=== PATIENT | male | born 1985 | race Caucasian/White ===

== ENCOUNTER 2016-11-10 03:28 | Emergency (ER) | payer SELFPAY ==
--- NOTE | 2016-11-10 03:46 | ERPHSYRPT ---
- History of Present Illness Time Seen by Provider: 11/10/16 03:44 Historian: patient Exam Limitations: no limitations Physician History: pt is 31 year old male with 3 day hx RLQ pain and vomiting and now RLQ tenderness no prior abd surgery hx gerd discussed risk and benefit of CT and pt ultimately decided to have it Timing/Duration: day(s) Activities at Onset: none Quality: cramping, sharpness, stabbing Abdominal Pain Onset Location: RLQ, periumbilical Pain Radiation: RLQ Severity of Pain-Max: moderate Severity of Pain-Current: moderate Modifying Factors: Improves With: nothing Associated Symptoms: loss of appetite, nausea, vomiting Previous symptoms: no prior history Allergies/Adverse Reactions: ketorolac tromethamine [From Toradol] Allergy (Verified 02/25/16 06:11) Itching shrimp Allergy (Verified 02/25/16 06:11) Home Medications: Escitalopram Oxalate [Lexapro] 1 tab PO DAILY 02/25/16 [History] Esomeprazole Magnesium [Nexium] 40 mg PO DAILY 02/25/16 [History] Lorazepam 0.5 mg [Ativan 0.5 MG] 1 mg PO TID PRN 02/25/16 [History] Temazepam [Restoril] 30 mg PO DAILY PRN 02/25/16 [History] Testosterone [Androgel] 150 gm IM WEEKLY 02/25/16 [History] Cephalexin Mh 500 mg [Keflex 500 mg] 500 mg PO TID 11/10/16 [History] Hx Tetanus, Diphtheria Vaccination/Date Given: Yes Hx Influenza Vaccination/Date Given: No Hx Pneumococcal Vaccination/Date Given: No - Review of Systems Constitutional: No Fever, No Chills Eyes: No Symptoms Ears, Nose, & Throat: No Symptoms Respiratory: No Cough, No Dyspnea Cardiac: No Chest Pain, No Edema, No Syncope Abdominal/Gastrointestinal: Abdominal Pain, Nausea, Vomiting, No Diarrhea Genitourinary Symptoms: No Dysuria Musculoskeletal: No Back Pain, No Neck Pain Skin: No Rash Neurological: No Dizziness, No Focal Weakness, No Sensory Changes Psychological: No Symptoms Endocrine: No Symptoms All Other Systems: Reviewed and Negative - Past Medical History Pertinent Past Medical History: Yes History: Other Other Medical History: Kallmann's Disease - frequent kidney stones - Past Surgical History Past Surgical History: Yes Other Surgical History: nephrolithiasis removal - egd - colonoscopy - Social History Smoking Status: Never smoker Exposure to second hand smoke: No Drug Use: none Patient Lives Alone: No - Nursing Vital Signs Nursing Vital Signs: Initial Vital Signs Temperature 98.5 F Temperature Source Oral Pulse Rate 87 Respiratory Rate 18 Blood Pressure [] 144/94 Pain Intensity 8 - Physical Exam General Appearance: no apparent distress, alert Eye Exam: PERRL/EOMI, eyes nml inspection Ears, Nose, Throat Exam: normal ENT inspection, pharynx normal, moist mucous membranes Neck Exam: normal inspection, non-tender, supple, full range of motion Respiratory Exam: normal breath sounds, lungs clear, No respiratory distress Cardiovascular Exam: regular rate/rhythm, normal heart sounds Gastrointestinal/Abdomen Exam: soft, tenderness, guarding, No mass, No pulsatile mass Rectal Exam: deferred Back Exam: normal inspection, normal range of motion, No CVA tenderness, No vertebral tenderness Extremity Exam: normal inspection, normal range of motion, pelvis stable Neurologic Exam: alert, oriented x 3, cooperative, normal mood/affect, nml cerebellar function, sensation nml, No motor deficits Skin Exam: normal color, warm, dry - Course Nursing assessment & vital signs reviewed: Yes EKG Interpreted by Me: Sinus Rhythm, NORMAL AXIS, Non-specific ST Changes - CT Exams Abdomen/Pelvis CT Interpretation: Tele-radiologist Report, Normal Appendix, No appendicitis Ordered Tests: Active Orders 24 hr Category Date Time Status Clean Catch Urine Specimen STAT Care 11/10/16 03:47 Active EKG-ER Only STAT Care 11/10/16 03:47 Active IV Insertion STAT Care 11/10/16 03:47 Active NPO (ED) STAT Care 11/10/16 03:47 Active ABDOMEN AND PELVIS W/0 CONTRAS [CT] Stat Exams 11/10/16 03:47 Taken AMYLASE Stat Lab 11/10/16 04:10 Completed CBC W DIFF Stat Lab 11/10/16 04:10 Completed CMP Stat Lab 11/10/16 04:10 Completed CULTURE,URINE Stat Lab 11/10/16 04:49 Received LIPASE Stat Lab 11/10/16 04:10 Completed Lactic Acid Stat Lab 11/10/16 03:47 Completed TROPONIN Stat Lab 11/10/16 04:10 Completed UA W/ MICROSCOPIC Stat Lab 11/10/16 04:49 Completed Medication Summary Generic Name Dose Route Start Last Admin Trade Name Freq PRN Reason Stop Dose Admin Sodium Chloride 1,000 mls @ 999 mls/hr 11/10/16 05:32 Sodium Chloride 0.9% 1000 Ml IV 11/10/16 06:32 .Q1H1M STA Discontinued Medications Generic Name Dose Route Start Last Admin Trade Name Miguel A PRN Reason Stop Dose Admin Diphenhydramine HCl 25 mg 11/10/16 03:47 11/10/16 04:12 Benadryl 50 Mg/Ml IV 11/10/16 03:48 25 mg STAT ONE Administration Diphenhydramine HCl Confirm 11/10/16 04:02 Benadryl 50 Mg/Ml Administered 11/10/16 04:03 Dose 50 mg .ROUTE .STK-MED ONE Famotidine 20 mg 11/10/16 03:47 11/10/16 04:10 Pepcid 20 Mg Vial IV 11/10/16 03:48 20 mg STAT ONE Administration Famotidine Confirm 11/10/16 04:02 Pepcid 20 Mg Vial Administered 11/10/16 04:03 Dose 20 mg IV .STK-MED ONE Hydromorphone HCl 1 mg 11/10/16 05:01 11/10/16 05:19 Hydromorphone 1 Mg/Ml Ampule IV 11/10/16 05:02 1 mg STAT ONE Administration Hydromorphone HCl Confirm 11/10/16 05:17 Hydromorphone 1 Mg/Ml Ampule Administered 11/10/16 05:18 Dose 1 mg .ROUTE .STK-MED ONE Sodium Chloride 1,000 mls @ 999 mls/hr 11/10/16 03:47 11/10/16 04:08 Sodium Chloride 0.9% 1000 Ml IV 11/10/16 04:47 999 mls/hr .Q1H1M STA Administration Sodium Chloride Confirm 11/10/16 04:02 Sodium Chloride 0.9% 1000 Ml Administered 11/10/16 04:03 Dose 1,000 mls @ ud .ROUTE .STK-MED ONE Sodium Chloride Confirm 11/10/16 05:25 Sodium Chloride 0.9% 1000 Ml Administered 11/10/16 05:26 Dose 1,000 mls @ ud .ROUTE .STK-MED ONE Morphine Sulfate 4 mg 11/10/16 03:47 11/10/16 04:13 Morphine Sulfate 4 Mg Inj IV 11/10/16 03:48 4 mg STAT ONE Administration Morphine Sulfate Confirm 11/10/16 04:02 Morphine Sulfate 4 Mg Inj Administered 11/10/16 04:03 Dose 4 mg .ROUTE .STK-MED ONE Ondansetron HCl 4 mg 11/10/16 03:47 11/10/16 04:08 Zofran 4 Mg/2 Ml Vial IV 11/10/16 03:48 4 mg STAT ONE Administration Ondansetron HCl Confirm 11/10/16 04:02 Zofran 4 Mg/2 Ml Vial Administered 11/10/16 04:03 Dose 4 mg .ROUTE .STK-MED ONE Lab/Rad Data: Laboratory Result Diagrams 11/10/16 04:10 11/10/16 04:10 Laboratory Results 11/10/16 11/10/16 11/10/16 Range/Units 04:49 04:10 04:10 WBC 8.4 (4.0-10.5) K/mm3 RBC 5.82 H (4.1-5.6) M/mm3 Hgb 16.1 (12.5-18.0) gm/dl Hct 48.0 (42-50) % MCV 82.5 (78-100) fl MCH 27.6 (26-32) pg MCHC 33.5 (32-36) g/dl RDW 13.6 (11.5-14.0) % Plt Count 313 (150-450) K/mm3 MPV 9.6 H (6-9.5) fl Gran % 71.0 H (36.0-66.0) % Lymphocytes % 22.7 L (24.0-44.0) % Monocytes % 5.6 (0.0-12.0) % Eosinophils % 0.5 (0.00-5.0) % Basophils % 0.2 (0.0-0.4) % Basophils # 0.02 (0-0.4) Sodium 141 (136-145) mEq/L Potassium 3.7 (3.5-5.1) mEq/L Chloride 104 (98-107) mEq/L Carbon Dioxide 27.6 (21-32) mEq/L Anion Gap 13.1 (5-15) MEQ/L BUN 14 (9-20) mg/dL Creatinine 0.95 (0.55-1.30) mg/dl Estimated GFR > 60 ML/MIN Glucose 92 (70-110) MG/DL Lactic Acid (0.4-2.0) Calcium 9.4 (8.5-10.1) mg/dL Total Bilirubin 0.50 (0.2-1.0) mg/dL AST 35 (15-37) U/L ALT 76 (12-78) U/L Alkaline Phosphatase 68 (46-116) U/L Troponin I < 0.017 (0.000-0.056) ng/ml Serum Total Protein 7.6 (6.4-8.2) gm/dL Albumin 4.0 (3.4-5.0) g/dL Amylase 70 (25-115) U/L Lipase 153 (73-393) U/L Ur Collection Type CLEAN CATCH Urine Color YELLOW (YELLOW) Urine Appearance SLIGHTLY CLOUDY (CLEAR) Urine pH 5.0 (5-6) Ur Specific Roy 1.025 (1.005-1.025) Urine Protein TRACE (Negative) Urine Ketones NEGATIVE (NEGATIVE) Urine Blood 250 (0-5) Romario/ul Urine Nitrite NEGATIVE (NEGATIVE) Urine Bilirubin NEGATIVE (NEGATIVE) Urine Urobilinogen NORMAL (0-1) mg/dL Ur Leukocyte Esterase NEGATIVE (NEGATIVE) Urine Microscopic RBC 50-100 (0-2) /HPF Urine Microscopic WBC 0-2 (0-5) /HPF Ur Epithelial Cells FEW (FEW) /HPF Urine Bacteria MODERATE (NEGATIVE) /HPF Urine Glucose NEGATIVE (NEGATIVE) mg/dL Specimen Received 11/10/16 0450 11/10/16 Range/Units 03:47 WBC (4.0-10.5) K/mm3 RBC (4.1-5.6) M/mm3 Hgb (12.5-18.0) gm/dl Hct (42-50) % MCV (78-100) fl MCH (26-32) pg MCHC (32-36) g/dl RDW (11.5-14.0) % Plt Count (150-450) K/mm3 MPV (6-9.5) fl Gran % (36.0-66.0) % Lymphocytes % (24.0-44.0) % Monocytes % (0.0-12.0) % Eosinophils % (0.00-5.0) % Basophils % (0.0-0.4) % Basophils # (0-0.4) Sodium (136-145) mEq/L Potassium (3.5-5.1) mEq/L Chloride (98-107) mEq/L Carbon Dioxide (21-32) mEq/L Anion Gap (5-15) MEQ/L BUN (9-20) mg/dL Creatinine (0.55-1.30) mg/dl Estimated GFR ML/MIN Glucose (70-110) MG/DL Lactic Acid 1.3 (0.4-2.0) Calcium (8.5-10.1) mg/dL Total Bilirubin (0.2-1.0) mg/dL AST (15-37) U/L ALT (12-78) U/L Alkaline Phosphatase (46-116) U/L Troponin I (0.000-0.056) ng/ml Serum Total Protein (6.4-8.2) gm/dL Albumin (3.4-5.0) g/dL Amylase (25-115) U/L Lipase (73-393) U/L Ur Collection Type Urine Color (YELLOW) Urine Appearance (CLEAR) Urine pH (5-6) Ur Specific Roy (1.005-1.025) Urine Protein (Negative) Urine Ketones (NEGATIVE) Urine Blood (0-5) Romario/ul Urine Nitrite (NEGATIVE) Urine Bilirubin (NEGATIVE) Urine Urobilinogen (0-1) mg/dL Ur Leukocyte Esterase (NEGATIVE) Urine Microscopic RBC (0-2) /HPF Urine Microscopic WBC (0-5) /HPF Ur Epithelial Cells (FEW) /HPF Urine Bacteria (NEGATIVE) /HPF Urine Glucose (NEGATIVE) mg/dL Specimen Received - Progress Progress: improved, re-examined Progress Note: 11/10/16 05:39 discussed results with pt and that undetected pathology could still be evolving and need for f/u and he is comfortable now with DC to f/u without further eval in hosp at this time; Counseled pt/family regarding: lab results, diagnosis, need for follow-up, rad results - Departure Time of Disposition: 05:42 Departure Disposition: Home Clinical Impression: Renal calculus, Recurrent nephrolithiasis, Abdominal pain Condition: Good Critical Care Time: No Instructions: Vomiting -- Adult, Abdominal Pain-Adult Additional Instructions: we have not found a precise cause for your pain, but there are still kidney stones on the other side; it is important to f/u with your dr and to return meantime if pain continues or fever, or other concerns; there may still be problems developing. Prescriptions: Promethazine HCl 25 mg Supp [Phenergan 25 mg Supp] 25 mg RC Q8HPRN PRN # 10 supp.rect PRN Reason: Nausea
[2016-11-10] MEDS ORDERED: Pepcid 20 MG VIAL IV ONE ×2 (03:47→04:02)
[2016-11-10] MEDS ORDERED: Sodium Chloride 0.9% 1000 ML 1,000 ML IV STA ×2 (03:47→05:32)
[2016-11-10] MEDS ORDERED: BENADRYL 50 MG/ML IV ONE ×2 (03:47→05:41)
[2016-11-10] MEDS ORDERED: MORPHINE SULFATE 4 MG INJ IV ONE (03:47)
[2016-11-10] MEDS ORDERED: Zofran 4 MG/2 ML VIAL IV ONE (03:47)
[2016-11-10 03:52] VITALS: BP 144/94; PULSE 87; O2SAT 97
[2016-11-10] MEDS ORDERED: Sodium Chloride 0.9% 1000 ML 1,000 ML ONE ×2 (04:02→05:25)
[2016-11-10] MEDS ORDERED: Zofran 4 MG/2 ML VIAL ONE (04:02)
[2016-11-10] MEDS ORDERED: MORPHINE SULFATE 4 MG INJ ONE (04:02)
[2016-11-10] MEDS ORDERED: BENADRYL 50 MG/ML ONE ×2 (04:02→05:47)
[2016-11-10 04:19] LABS: BASOPHIL % 0.2 % (0.0-0.4); Eosinophil % 0.5 % (0.00-5.0); Lymphocytes % 22.7 % (24.0-44.0); Mean Cell Volume 82.5 fl (78-100); Mean Platelet Volume 9.6 fl (6-9.5); Monocytes % 5.6 % (0.0-12.0); Platelet Count 313 K/mm3 (150-450); Red Blood Count 5.82 M/mm3 (4.1-5.6); Red Cell Distribution Width 13.6 % (11.5-14.0); White Blood Count 8.4 K/mm3 (4.0-10.5)
[2016-11-10 04:22] LABS: Mean Corpuscular Hemoglobin 27.6 pg (26-32)
[2016-11-10 04:51] LABS: ALKALINE PHOSPHATASE 68 U/L (46-116); ANION GAP 13.1 MEQ/L (5-15); BLOOD UREA NITROGEN 14 mg/dL (9-20); CHLORIDE 104 mEq/L (98-107); Carbon Dioxide 27.6 mEq/L (21-32); Glucose 92 MG/DL (70-110); LIPASE 153 U/L (73-393); Potassium 3.7 mEq/L (3.5-5.1); SGOT/AST 35 U/L (15-37); SGPT/ALT 76 U/L (12-78); SODIUM 141 mEq/L (136-145); Total Protein 7.6 gm/dL (6.4-8.2)
[2016-11-10 04:53] LABS: TROPONIN < 0.017 ng/ml (0.000-0.056)
[2016-11-10] MEDS ORDERED: Hydromorphone 1 mg/ml Ampule IV ONE ×2 (05:01→05:50)
[2016-11-10 05:08] LABS: Collection Type CLEAN CATCH
[2016-11-10 05:09] LABS: ADD URINE CULTURE? YES (NO); Bacteria MODERATE /HPF (NEGATIVE); Bilirubin NEGATIVE (NEGATIVE); Blood 250 Ery/ul (0-5); COMPLETE URINE MICROSCOPIC? YES; Epithelial Cells FEW /HPF (FEW); Glucose NEGATIVE (NEGATIVE); Leukocyte Esterase NEGATIVE (NEGATIVE); WBC 0-2 /HPF (0-5)
[2016-11-10] MEDS ORDERED: Hydromorphone 1 mg/ml Ampule ONE ×2 (05:17→06:11)
--- NOTE | 2016-11-10 09:53 | XRAY ---
Indication: Right lower quadrant pain. Nausea, vomiting, diarrhea. Multiple contiguous axial images obtained through the abdomen and pelvis without contrast as ordered. Comparison: None. Lung bases demonstrates mild bibasilar dependent atelectasis. No infiltrate, consolidation, or effusion. Heart is not enlarged. Noncontrasted stomach and bowel loops appear nonobstructed. There is mild diffuse scattered colonic fecal debris throughout. Also mild scattered diverticulosis without diverticulitis. Small appendicolith without appendicitis. No free fluid/air. There are 2 nonobstructing punctate left renal calculi. 2 cm right mid renal cortical cyst. Spleen is enlarged measuring 14.5 cm in greatest axial dimension. Remaining liver, gallbladder, pancreas, spleen, adrenal glands, kidneys, ureters, bladder, and aorta appear unremarkable for noncontrast exam. Osseous structures intact. Impression: 1. Nonobstructing left renal micro-calculi and a right renal cyst. 2. Splenomegaly. 3. Mild fecal stasis without obstruction. 4. Appendicolith without appendicitis. 5. No acute intra-abdominal/pelvic abnormalities on this noncontrast exam. Comment: Preliminary interpretation was made by C. No critical discrepancy. CTDI 28.10
== END 2016-11-10 06:40 | disposition home or self-care (01) ==
LOC: ED 03:28
DX: N20.0 Calculus of kidney (principal); Z87.442 Personal history of urinary calculi; R10.9 Unspecified abdominal pain; R10.31 Right lower quadrant pain; R10.11 Right upper quadrant pain; R11.2 Nausea with vomiting, unspecified; Z79.899 Other long term (current) drug therapy
CPT/HCPCS: 36000; 36415; 74176; 80053; 81000; 82150; 83605; 83690; 84484; 85025; 87086; 93005; 96374; 96375; 96376; 99284; J1170; J1200; J2270; J2405

== ENCOUNTER 2016-12-03 01:29 | Emergency (ER) | payer SELFPAY ==
[2016-12-03] MEDS ORDERED: Sodium Chloride 0.9% 1000 ML 1,000 ML IV STA (01:48)
[2016-12-03] MEDS ORDERED: BENADRYL 50 MG/ML IV ONE ×2 (01:48→04:12)
[2016-12-03] MEDS ORDERED: MORPHINE SULFATE 4 MG INJ IV ONE ×2 (01:48→02:58)
--- NOTE | 2016-12-03 01:53 | ERPHSYRPT ---
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 Pt sts also feels like he is short of breath and anxious and is concerned because his friend who is an SEARCH MANAGER at a [employer] told him that he is having a reaction to his restoril. Triage Nursing Assessment: Pt alert, oriented, answers all questions appropriately. Dry heaving during triage. Pt with shaking arms and hands. Resps non-labored. Speaking in full sentences. Ambulatory to tx room, steady gait noted. Physician History: This is a 31-year-old white male with history of Kallman's syndrome, frequent urinary kidney stones Patient arrives with complaint of left flank pain vomiting symptoms for one hour he states he feels short of breath and anxious Past medical history includes Kallman's disease, frequent kidney stones. Past surgical history includes nephrolithiasis EGD colonoscopy Patient is on Restoril chronically he states he has not gone long periods without taking this Social history patient denies tobacco alcohol or illicit drug use Timing/Duration: today Activities at Onset: none Quality: sharpness Abdominal Pain Onset Location: flank Pain Radiation: no radiation (left flank) Severity of Pain-Max: moderate Severity of Pain-Current: moderate Modifying Factors: Improves With: nothing Associated Symptoms: back (eft flank pain), nausea, vomiting, other (patient tremulous feels anxious), No chest pain, No diaphoresis, No diarrhea, No fever/ chills, No fatigue, No headache, No heartburn, No loss of appetite, No neck pain , No rash, No shortness of breath, No syncope, No testicular pain, No weakness Previous symptoms: other (patient has had kidney stones in the past) Allergies/Adverse Reactions: ketorolac tromethamine [From Toradol] Allergy (Verified 12/03/16 01:43) Itching shrimp Allergy (Verified 12/03/16 01:43) Home Medications: Escitalopram Oxalate [Lexapro] 1 tab PO DAILY 02/25/16 [History] Esomeprazole Magnesium [Nexium] 40 mg PO DAILY 02/25/16 [History] Lorazepam 0.5 mg [Ativan 0.5 MG] 1 mg PO TID PRN 02/25/16 [History] Temazepam [Restoril] 30 mg PO DAILY PRN 02/25/16 [History] Testosterone [Androgel] 150 gm IM WEEKLY 02/25/16 [History] Hx Tetanus, Diphtheria Vaccination/Date Given: Yes Hx Influenza Vaccination/Date Given: No Hx Pneumococcal Vaccination/Date Given: No Immunizations Up to Date: Yes - Review of Systems Constitutional: No Fever, No Chills Eyes: No Symptoms Ears, Nose, & Throat: No Symptoms Respiratory: Dyspnea (patient feels anxious) Cardiac: No Chest Pain, No Edema, No Syncope Abdominal/Gastrointestinal: Nausea, Vomiting, No Abdominal Pain, No Diarrhea, No Constipation, No Hematemesis, No Hematochezia, No Melena, No Dysphagia, No Appetite Changes Genitourinary Symptoms: Flank Pain (left flank pain) Musculoskeletal: No Back Pain, No Neck Pain Skin: No Rash Neurological: No Dizziness, No Focal Weakness, No Sensory Changes Psychological: No Symptoms Endocrine: No Symptoms All Other Systems: Reviewed and Negative - Past Medical History Pertinent Past Medical History: Yes GI Medical History: GERD History: Other Psycho-Social History: Anxiety Other Medical History: Kallmann's Disease - frequent kidney stones - Past Surgical History Past Surgical History: Yes Other Surgical History: nephrolithiasis removal - egd - colonoscopy - Social History Smoking Status: Never smoker Exposure to second hand smoke: No Drug Use: none Patient Lives Alone: No - Nursing Vital Signs Nursing Vital Signs: Initial Vital Signs Temperature 97.9 F Temperature Source Oral Pulse Rate 87 Respiratory Rate 16 Blood Pressure [Right Arm] 131/101 Pain Intensity 6 - Physical Exam General Appearance: other (well-developed well-nourished white male alert oriented 3 tremor of both hands) Eye Exam: PERRL/EOMI, eyes nml inspection Ears, Nose, Throat Exam: normal ENT inspection, pharynx normal, moist mucous membranes Neck Exam: normal inspection, non-tender, supple, full range of motion Respiratory Exam: normal breath sounds, lungs clear, No respiratory distress Cardiovascular Exam: regular rate/rhythm, normal heart sounds Gastrointestinal/Abdomen Exam: soft, No tenderness, No mass Back Exam: CVA tenderness (left flank tenderness) Extremity Exam: normal inspection, normal range of motion, pelvis stable, other (patient with tremor of both hands almost appeared to be coordinated so that tremor from side to side is symmetrical with both hands) Neurologic Exam: alert, oriented x 3, 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 tested Skin Exam: normal color, warm, dry SpO2 Interpretation: normal (96%) SpO2: 96 Oxygen Delivery: Room Air Ordered Tests: Active Orders 24 hr Category Date Time Status IV Insertion STAT Care 12/03/16 01:48 Active KUB Stat Exams 12/03/16 03:34 Taken AMYLASE Stat Lab 12/03/16 02:16 Completed CBC W DIFF Stat Lab 12/03/16 02:16 Completed CMP Stat Lab 12/03/16 02:16 Completed CULTURE,URINE Stat Lab 12/03/16 03:03 Received LIPASE Stat Lab 12/03/16 02:16 Completed UA W/ MICROSCOPIC Stat Lab 12/03/16 03:03 Completed Medication Summary Discontinued Medications Generic Name Dose Route Start Last Admin Trade Name Freq PRN Reason Stop Dose Admin Diphenhydramine HCl 25 mg 12/03/16 01:48 12/03/16 02:20 Benadryl 50 Mg/Ml IV 12/03/16 01:49 25 mg STAT ONE Administration Diphenhydramine HCl Confirm 12/03/16 02:09 Benadryl 50 Mg/Ml Administered 12/03/16 02:10 Dose 50 mg .ROUTE .STK-MED ONE Diphenhydramine HCl 25 mg 12/03/16 04:12 12/03/16 04:19 Benadryl 50 Mg/Ml IV 12/03/16 04:13 25 mg STAT ONE Administration Diphenhydramine HCl Confirm 12/03/16 04:16 Benadryl 50 Mg/Ml Administered 12/03/16 04:17 Dose 50 mg .ROUTE .STK-MED ONE Hydromorphone HCl 1 mg 12/03/16 03:32 12/03/16 04:10 Hydromorphone 1 Mg/Ml Ampule IV 12/03/16 03:33 1 mg STAT ONE Administration Hydromorphone HCl Confirm 12/03/16 04:06 Hydromorphone 1 Mg/Ml Ampule Administered 12/03/16 04:07 Dose 1 mg .ROUTE .STK-MED ONE Sodium Chloride 1,000 mls @ 999 mls/hr 12/03/16 01:48 12/03/16 02:20 Sodium Chloride 0.9% 1000 Ml IV 12/03/16 02:48 999 mls/hr .Q1H1M STA Administration Sodium Chloride Confirm 12/03/16 02:11 Sodium Chloride 0.9% 1000 Ml Administered 12/03/16 02:12 Dose 1,000 mls @ ud .ROUTE .STK-MED ONE Morphine Sulfate 4 mg 12/03/16 01:48 12/03/16 02:20 Morphine Sulfate 4 Mg Inj IV 12/03/16 01:49 4 mg STAT ONE Administration Morphine Sulfate Confirm 12/03/16 02:11 Morphine Sulfate 4 Mg Inj Administered 12/03/16 02:12 Dose 4 mg .ROUTE .STK-MED ONE Morphine Sulfate 4 mg 12/03/16 02:58 12/03/16 03:13 Morphine Sulfate 4 Mg Inj IV 12/03/16 02:59 4 mg STAT ONE Administration Morphine Sulfate Confirm 12/03/16 03:11 Morphine Sulfate 4 Mg Inj Administered 12/03/16 03:12 Dose 4 mg .ROUTE .STK-MED ONE Lab/Rad Data: Laboratory Result Diagrams 12/03/16 02:16 12/03/16 02:16 Laboratory Results 12/03/16 12/03/16 12/03/16 Range/Units 03:03 02:16 02:16 WBC 9.6 (4.0-10.5) K/mm3 RBC 5.45 (4.1-5.6) M/mm3 Hgb 15.1 (12.5-18.0) gm/dl Hct 45.1 (42-50) % MCV 82.8 (78-100) fl MCH 27.7 (26-32) pg MCHC 33.5 (32-36) g/dl RDW 14.6 H (11.5-14.0) % Plt Count 225 (150-450) K/mm3 MPV 9.5 (6-9.5) fl Gran % 68.8 H (36.0-66.0) % Lymphocytes % 21.6 L (24.0-44.0) % Monocytes % 8.4 (0.0-12.0) % Eosinophils % 1.0 (0.00-5.0) % Basophils % 0.2 (0.0-0.4) % Basophils # 0.02 (0-0.4) Sodium 142 (136-145) mEq/L Potassium 3.5 (3.5-5.1) mEq/L Chloride 105 (98-107) mEq/L Carbon Dioxide 29.1 (21-32) mEq/L Anion Gap 11.7 (5-15) MEQ/L BUN 8 L (9-20) mg/dL Creatinine 0.98 (0.55-1.30) mg/dl Estimated GFR > 60 ML/MIN Glucose 100 (70-110) MG/DL Calcium 9.1 (8.5-10.1) mg/dL Total Bilirubin 0.20 (0.2-1.0) mg/dL AST 26 (15-37) U/L ALT 63 (12-78) U/L Alkaline Phosphatase 71 (46-116) U/L Serum Total Protein 7.0 (6.4-8.2) gm/dL Albumin 3.9 (3.4-5.0) g/dL Amylase 86 (25-115) U/L Lipase 227 (73-393) U/L Ur Collection Type CLEAN CATCH Urine Color YELLOW (YELLOW) Urine Appearance CLOUDY (CLEAR) Urine pH 8.0 (5-6) Ur Specific [place] 1.005 (1.005-1.025) Urine Protein 30 (Negative) Urine Ketones NEGATIVE (NEGATIVE) Urine Blood 250 (0-5) Romario/ul Urine Nitrite NEGATIVE (NEGATIVE) Urine Bilirubin NEGATIVE (NEGATIVE) Urine Urobilinogen NORMAL (0-1) mg/dL Ur Leukocyte Esterase TRACE (NEGATIVE) Urine Microscopic RBC >100 (0-2) /HPF Urine Microscopic WBC 0-2 (0-5) /HPF Amorphous Crystals MODERATE (NEGATIVE) /HPF Urine Bacteria FEW (NEGATIVE) /HPF Urine Glucose NEGATIVE (NEGATIVE) mg/dL Specimen Received [id number] - Progress Progress: improved Progress Note: 12/03/16 04:00 This is a 31-year-old white male with history of Kallman's syndrome, frequent kidney stones he arrives with complaint of left flank pain associated with nausea and vomiting which had been going on for approximately one hour prior to arrival. Patient also stated that he was tremulous she has been told by a friend that he might be having an allergic reaction to Restoril which he has been on chronically. On arrival patient did have some tremor he had some anxiety he did have some left flank pain. Patient had a greater than 100 red cells per high-power field there were 0-2 white cells chemistry was essentially normal and the CBC was essentially normal Patient was given IV fluids was given morphine 4 mg IV x 2 , he stated that morphine does not work for him and suggested Dilaudid. Patient was given 1 mg of Dilaudid as well. Patient had been given Benadryl 25 mg IV as well. Patient appears to be markedly improved much more comfortable patient requested that if any x-rays were done the patient did not have the CT he states he's had multiple of these and he did not want them he did request a KUB. KUB was obtained and my read I do not see any obvious calcifications there is a moderate amount of stool in the bowel. Patient is markedly improved Will release. Will place patient on [place] for pain patient is to strain his urine he is to follow-up with his family doctor he is to call tomorrow. . 12/03/16 04:46 Patient's blood pressure was noted to be 181/121 on arrival This is felt to be from the patient's distress is decreased to 140/104 at time of discharge after receiving the Dilaudid. Patient has been requested to follow-up with his family doctor to recheck this. - Departure Time of Disposition: 04:08 Departure Disposition: Home Clinical Impression: Left flank pain, History of nephrolithiasis Hematuria Qualifiers: Hematuria type: unspecified type Qualified Code(s): R31.9 - Hematuria, unspecified Condition: Fair Critical Care Time: No Referrals: RASHI ALVARADO JR [Primary Care Provider] - Instructions: Hematuria Additional Instructions: Return home. Plenty of fluids. [place] 5/325 one to 2 orally every 4-6 hours as needed for pain #20. Strain all urine. Follow-up with your family doctor call tomorrow for an appointment. Return for acute distress or for severe symptoms. Prescriptions: Hydrocodone/Acetaminophen [[place] 5-325 Tablet] 1 - 2 tab PO Q4-6HPRN PRN #20 tablet PRN Reason: Pain
[2016-12-03] MEDS ORDERED: BENADRYL 50 MG/ML ONE ×2 (02:09→04:16)
[2016-12-03] MEDS ORDERED: MORPHINE SULFATE 4 MG INJ ONE ×2 (02:11→03:11)
[2016-12-03] MEDS ORDERED: Sodium Chloride 0.9% 1000 ML 1,000 ML ONE (02:11)
[2016-12-03 02:21] LABS: BASOPHIL % 0.2 % (0.0-0.4); Granulocytes % 68.8 % (36.0-66.0); Lymphocytes % 21.6 % (24.0-44.0); Mean Cell Volume 82.8 fl (78-100); Mean Corpuscular Hemoglobin 27.7 pg (26-32); Mean Platelet Volume 9.5 fl (6-9.5); Monocytes % 8.4 % (0.0-12.0); Platelet Count 225 K/mm3 (150-450); Red Blood Count 5.45 M/mm3 (4.1-5.6); Red Cell Distribution Width 14.6 % (11.5-14.0); White Blood Count 9.6 K/mm3 (4.0-10.5)
[2016-12-03 02:39] LABS: ALBUMIN 3.9 g/dL (3.4-5.0); ALKALINE PHOSPHATASE 71 U/L (46-116); ANION GAP 11.7 MEQ/L (5-15); BLOOD UREA NITROGEN 8 mg/dL (9-20); CHLORIDE 105 mEq/L (98-107); Carbon Dioxide 29.1 mEq/L (21-32); Glucose 100 MG/DL (70-110); LIPASE 227 U/L (73-393); Potassium 3.5 mEq/L (3.5-5.1); SGOT/AST 26 U/L (15-37); SGPT/ALT 63 U/L (12-78); SODIUM 142 mEq/L (136-145)
[2016-12-03 03:18] LABS: Bilirubin NEGATIVE (NEGATIVE); Blood 250 Ery/ul (0-5); COMPLETE URINE MICROSCOPIC? YES; Collection Type CLEAN CATCH; Glucose NEGATIVE (NEGATIVE); Leukocyte Esterase TRACE (NEGATIVE)
[2016-12-03 03:19] LABS: WBC 0-2 /HPF (0-5)
[2016-12-03 03:20] LABS: ADD URINE CULTURE? YES (NO); Bacteria FEW /HPF (NEGATIVE)
[2016-12-03] MEDS ORDERED: Hydromorphone 1 mg/ml Ampule IV ONE (03:32)
[2016-12-03] MEDS ORDERED: Hydromorphone 1 mg/ml Ampule ONE (04:06)
[2016-12-03 04:49] VITALS: BP 140/104; PULSE 78; O2SAT 98
--- NOTE | 2016-12-03 22:34 | XRAY ---
Exam: Supine abdomen film from 12/03/2016. Comparison: CT of the abdomen and pelvis without IV contrast on 11/10/2016. Indication: Left flank pain, hematuria. Findings: 2 supine abdomen films are submitted for evaluation. Review of the CT of the abdomen and pelvis from 11/10/2016 reveals a couple small nonobstructing stones within the left kidney. No ureteral stone was seen at that time. Today's plain films reveal scattered stool throughout the colon. There appears to be a 2 mm stone overlying the lower pole of the left kidney. In addition, there is a slightly larger 2.5 mm stone overlying the upper pole of the left kidney. I believe these represent the 2 stones seen on the recent CT. I see no other definite renal or ureteral calculi. There is a small calcified phlebolith adjacent to the superior aspect of the ischial spine on the right which can be seen on the previous CT as well. Also, there is a tiny calcified phlebolith within the lower left pelvis which is clearly not in the distal left ureter on the prior CT study. No hepatosplenomegaly is seen. The visualized bones appear intact. Impression: 1. I believe 2 tiny stones can be seen within the left kidney. These were better demonstrated on the CT study of 11/10/2016. 2. No other suspicious renal or ureteral calcifications are seen bilaterally. 3. Moderate scattered colonic stool burden. Otherwise, the bowel gas pattern appears unremarkable.
== END 2016-12-03 04:54 | disposition home or self-care (01) ==
LOC: ED 01:29
DX: R31.9 Hematuria, unspecified (principal); R10.9 Unspecified abdominal pain; R06.02 Shortness of breath; E23.0 Hypopituitarism; Z87.442 Personal history of urinary calculi; Z79.899 Other long term (current) drug therapy; R11.2 Nausea with vomiting, unspecified
CPT/HCPCS: 36000; 36415; 74000; 80053; 81000; 82150; 83690; 85025; 87086; 96360; 96361; 96374; 96375; 96376; 99284; J1170; J1200; J2270

== ENCOUNTER 2016-12-18 11:47 | Emergency (ER) | payer OTHER ==
[2016-12-18] MEDS ORDERED: Sodium Chloride 0.9% 1000 ML 1,000 ML IV STA (12:14)
[2016-12-18] MEDS ORDERED: Hydromorphone 1 mg/ml Ampule IV ONE (12:14)
[2016-12-18] MEDS ORDERED: Zofran 4 MG/2 ML VIAL IV ONE (12:14)
[2016-12-18] MEDS ORDERED: Sodium Chloride 0.9% 1000 ML 1,000 ML ONE (12:19)
[2016-12-18] MEDS ORDERED: Zofran 4 MG/2 ML VIAL ONE (12:19)
[2016-12-18] MEDS ORDERED: Hydromorphone 1 mg/ml Ampule ONE (12:19)
--- NOTE | 2016-12-18 12:22 | ERPHSYRPT ---
- History of Present Illness Time Seen by Provider: 12/18/16 12:10 Source: patient Exam Limitations: clinical condition Patient Subjective Stated Complaint: pt states "I think I have a kidney stone. My urologist cleaned out. my kidneys in may and now I think I am passing the ones he. said he could not get.". Dr. arguello--Buddhism. Dr. Kit Nieves -- Triage Nursing Assessment: Pt alert and oriented X 3, skin pwd pt ambulates without difficulty,. able to speak in full sentences. Physician History: PATIENT WITH HISTORY OF KIDNEY STONES, UNDERWENT LITHOTRIPSY FOR REMOVAL OF SEVERAL STONES WEEKS AGO, NOW COMPLAINS OF LEFT FLANK WIT RADIATION OF PAIN INTO LEFT GROIN. DENIES FEVER, CHILLS, NAUSEA OR EMESIS Timing/Duration: today Activites at Onset: none Quality: sharpness, stabbing Onset Location: left flank Pain Radiation: LLQ Severity of Pain-Max: moderate Severity of Pain-Current: moderate Modifying Factors: Improves With: nothing Associated Symptoms: denies symptoms Prior abdominal problems: similar symptoms Sexual intercourse history: non-contributory Allergies/Adverse Reactions: ketorolac tromethamine [From Toradol] Allergy (Verified 12/03/16 01:43) Itching shrimp Allergy (Verified 12/03/16 01:43) Home Medications: Escitalopram Oxalate [Lexapro] 1 tab PO DAILY 02/25/16 [History] Esomeprazole Magnesium [Nexium] 40 mg PO DAILY 02/25/16 [History] Lorazepam 0.5 mg [Ativan 0.5 MG] 1 mg PO TID PRN 02/25/16 [History] Temazepam [Restoril] 30 mg PO DAILY PRN 02/25/16 [History] Testosterone [Androgel] 150 gm IM WEEKLY 02/25/16 [History] Hx Tetanus, Diphtheria Vaccination/Date Given: Yes Hx Influenza Vaccination/Date Given: Yes Hx Pneumococcal Vaccination/Date Given: No Immunizations Up to Date: Yes - Past Medical History Pertinent Past Medical History: Yes GI Medical History: GERD History: Other Psycho-Social History: Anxiety Other Medical History: Kallmann's Disease - frequent kidney stones - Past Surgical History Past Surgical History: Yes Other Surgical History: nephrolithiasis removal - egd - colonoscopy - Social History Smoking Status: Never smoker Exposure to second hand smoke: No Drug Use: none Patient Lives Alone: No - Review of Systems Constitutional: No Fever, No Chills Eyes: No Symptoms Ears, Nose, & Throat: No Symptoms Respiratory: No Symptoms, No Cough, No Dyspnea Cardiac: No Symptoms, No Chest Pain, No Edema, No Syncope Abdominal/Gastrointestinal: No Abdominal Pain, No Nausea, No Vomiting, No Diarrhea Genitourinary Symptoms: Flank Pain, Penile Discharge, No Dysuria Musculoskeletal: No Back Pain, No Neck Pain Skin: No Symptoms, No Rash Neurological: No Dizziness, No Focal Weakness, No Sensory Changes Psychological: No Symptoms Endocrine: No Symptoms All Other Systems: Reviewed and Negative - Nursing Vital Signs Nursing Vital Signs: Initial Vital Signs Temperature 98.2 F 12/18/16 11:50 Pulse Rate 114 H 12/18/16 11:50 Respiratory Rate 16 12/18/16 11:50 Blood Pressure 146/88 12/18/16 11:50 O2 Sat by Pulse Oximetry 97 12/18/16 11:50 Pain Scale Pain Intensity 6 - Physical Exam General Appearance: no apparent distress, alert Eye Exam: PERRL/EOMI Ears, Nose, Throat Exam: pharynx normal, moist mucous membranes Neck Exam: normal inspection, supple Respiratory Exam: normal breath sounds, lungs clear Cardiovascular Exam: regular rate/rhythm, No edema Gastrointestinal/Abdomen Exam: soft, normal bowel sounds, No tenderness Back Exam: normal inspection, No CVA tenderness Extremity Exam: normal inspection, normal range of motion, No pedal edema Neurologic Exam: alert, oriented x 3, cooperative, sensation nml, No motor deficits Skin Exam: normal color, warm, dry, No rash SpO2 Interpretation: normal SpO2: 97 Oxygen Delivery: Room Air - CT Exams Abdomen/Pelvis CT Interpretation: Discussed w/radiologist (STABLE NONOBSTRUCTING LEFT RENAL MICRO-CALCULI AND RIGHT RENAL CYST, AND NEW NONOBSTRUCTING RIGHT RENAL MICRO- CALCULUS) Ordered Tests: Active Orders 24 hr Category Date Time Status Oracle Iam Consultant STAT Care 12/18/16 12:16 Active Clean Catch Urine Specimen STAT Care 12/18/16 12:22 Active IV Insertion STAT Care 12/18/16 12:14 Active Oxygen-ED Only NASAL CANNULA 2 lpm Care 12/18/16 12:16 Active Pulse Oximetry (ED) STAT Care 12/18/16 12:16 Active ABDOMEN AND PELVIS W/0 CONTRAS [CT] Stat Exams 12/18/16 12:15 Completed BMP Stat Lab 12/18/16 11:57 Completed CBC W DIFF Stat Lab 12/18/16 11:57 Completed UA W/ MICROSCOPIC Stat Lab 12/18/16 13:03 Completed Medication Summary Discontinued Medications Generic Name Dose Route Start Last Admin Trade Name Alexq PRN Reason Stop Dose Admin Diphenhydramine HCl 50 mg 12/18/16 13:05 12/18/16 13:09 Benadryl 50 Mg/Ml IV 12/18/16 13:06 50 mg STAT ONE Administration Diphenhydramine HCl Confirm 12/18/16 13:08 Benadryl 50 Mg/Ml Administered 12/18/16 13:09 Dose 50 mg .ROUTE .STK-MED ONE Hydromorphone HCl 2 mg 12/18/16 12:14 12/18/16 12:22 Hydromorphone 1 Mg/Ml Ampule IV 12/18/16 12:15 2 mg STAT ONE Administration Hydromorphone HCl Confirm 12/18/16 12:19 Hydromorphone 1 Mg/Ml Ampule Administered 12/18/16 12:20 Dose 2 mg .ROUTE .STK-MED ONE Sodium Chloride 1,000 mls @ 999 mls/hr 12/18/16 12:14 12/18/16 12:22 Sodium Chloride 0.9% 1000 Ml IV 12/18/16 13:14 999 mls/hr .Q1H1M STA Administration Sodium Chloride Confirm 12/18/16 12:19 Sodium Chloride 0.9% 1000 Ml Administered 12/18/16 12:20 Dose 1,000 mls @ ud .ROUTE .STK-MED ONE Ondansetron HCl 4 mg 12/18/16 12:14 12/18/16 12:22 Zofran 4 Mg/2 Ml Vial IV 12/18/16 12:15 4 mg STAT ONE Administration Ondansetron HCl Confirm 12/18/16 12:19 Zofran 4 Mg/2 Ml Vial Administered 12/18/16 12:20 Dose 4 mg .ROUTE .STK-MED ONE Lab/Rad Data: Laboratory Result Diagrams 12/18/16 11:57 12/18/16 11:57 Laboratory Results 12/18/16 12/18/16 12/18/16 Range/Units 13:03 11:57 11:57 WBC 7.3 (4.0-10.5) K/mm3 RBC 6.28 H* (4.1-5.6) M/mm3 Hgb 17.7 (12.5-18.0) gm/dl Hct 52.8 H (42-50) % MCV 84.1 (78-100) fl MCH 28.1 (26-32) pg MCHC 33.5 (32-36) g/dl RDW 15.9 H (11.5-14.0) % Plt Count 294 (150-450) K/mm3 MPV 9.7 H (6-9.5) fl Gran % 67.5 H (36.0-66.0) % Lymphocytes % 23.0 L (24.0-44.0) % Monocytes % 8.0 (0.0-12.0) % Eosinophils % 1.2 (0.00-5.0) % Basophils % 0.3 (0.0-0.4) % Basophils # 0.02 (0-0.4) Sodium 141 (136-145) mEq/L Potassium 3.9 (3.5-5.1) mEq/L Chloride 104 (98-107) mEq/L Carbon Dioxide 27.2 (21-32) mEq/L Anion Gap 14.1 (5-15) MEQ/L BUN 7 L (9-20) mg/dL Creatinine 1.15 (0.55-1.30) mg/dl Estimated GFR > 60 ML/MIN Glucose 95 (70-110) MG/DL Calcium 9.3 (8.5-10.1) mg/dL Ur Collection Type VOID Urine Color YELLOW (YELLOW) Urine Appearance CLOUDY (CLEAR) Urine pH 5.0 (5-6) Ur Specific [place] 1.020 (1.005-1.025) Urine Protein 30 (Negative) Urine Ketones NEGATIVE (NEGATIVE) Urine Blood 250 (0-5) Romario/ul Urine Nitrite NEGATIVE (NEGATIVE) Urine Bilirubin NEGATIVE (NEGATIVE) Urine Urobilinogen NORMAL (0-1) mg/dL Ur Leukocyte Esterase NEGATIVE (NEGATIVE) Urine Microscopic RBC >100 (0-2) /HPF Urine Microscopic WBC 2-5 (0-5) /HPF Ur Epithelial Cells FEW (FEW) /HPF Urine Bacteria MODERATE (NEGATIVE) /HPF Urine Mucus MODERATE (NEGATIVE) /HPF Urine Glucose NEGATIVE (NEGATIVE) mg/dL Specimen Received 12/18/16 1300 - Progress Progress: improved Progress Note: 12/18/16 13:49 PATIENT GIVEN IV NORMAL SALINE 1 LITER OVER 1 HOUR, ZOFRAN 4MG, DILAUDID 2MG IV Counseled pt/family regarding: lab results, diagnosis, need for follow-up, rad results - Departure Time of Disposition: 13:50 Departure Disposition: Home Clinical Impression: BILATERAL MICRONEPHROLITHIASIS, ACUTE RENAL COLIC Condition: Stable Critical Care Time: No Referrals: RASHI ALVARADO JR [Primary Care Provider] - Additional Instructions: STRAIN YOUR URINE FOR 72 HOURS. FOLLOWUP WITH YOUR UROLOGIST IN 1 WEEK. CONTINUE ALL CURRENT MEDICATIONS. PERCOCET 10/325 EVERY 4-6 HOURS NEEDED FOR PAIN DISCOMFORT. Prescriptions: Oxycodone HCl/Acetaminophen [Percocet 10-650 mg Tablet] 1 each PO Q4-6HPRN PRN # 10 tablet PRN Reason: Pain
[2016-12-18 12:27] LABS: BASOPHIL % 0.3 % (0.0-0.4); Eosinophil % 1.2 % (0.00-5.0); Granulocytes % 67.5 % (36.0-66.0); Mean Cell Volume 84.1 fl (78-100); Mean Platelet Volume 9.7 fl (6-9.5); Platelet Count 294 K/mm3 (150-450); Red Blood Count 6.28 M/mm3 (4.1-5.6); Red Cell Distribution Width 15.9 % (11.5-14.0); White Blood Count 7.3 K/mm3 (4.0-10.5)
[2016-12-18 12:28] LABS: Mean Corpuscular Hemoglobin 28.1 pg (26-32)
[2016-12-18 12:46] LABS: ANION GAP 14.1 MEQ/L (5-15); BLOOD UREA NITROGEN 7 mg/dL (9-20); CHLORIDE 104 mEq/L (98-107); Carbon Dioxide 27.2 mEq/L (21-32); Glucose 95 MG/DL (70-110); Potassium 3.9 mEq/L (3.5-5.1); SODIUM 141 mEq/L (136-145)
[2016-12-18] MEDS ORDERED: BENADRYL 50 MG/ML IV ONE (13:05)
[2016-12-18] MEDS ORDERED: BENADRYL 50 MG/ML ONE (13:08)
--- NOTE | 2016-12-18 13:08 | XRAY ---
Indication: Left-sided pain. History of stones. Multiple contiguous axial images obtained through the abdomen and pelvis without contrast using renal stone protocol. Comparison: November 10, 2016. Lung bases demonstrates minimal bibasilar dependent atelectasis less than before. No infiltrate, consolidation, or effusion. Heart is not enlarged. There are again 2 nonobstructing punctate left renal calculi. New nonobstructing punctate right renal calculus. Stable 2 cm right mid renal cortical cyst. Again splenomegaly today measuring 15.7 cm in greatest axial dimension, previously 14.5 cm. Noncontrasted stomach and bowel loops appear nonobstructed. Again mild diffuse scattered colonic fecal debris and mild scattered diverticulosis without diverticulitis. Normal appendix. No free fluid/air. Remaining liver, gallbladder, pancreas, spleen, adrenal glands, kidneys, ureters, bladder, and aorta appear unremarkable for noncontrast exam. Osseous structures intact. Impression: 1. Stable nonobstructing left renal micro-calculi and right renal cyst. New nonobstructing right renal micro-calculus. No evidence for obstructive uropathy. 2. Again mild fecal stasis without obstruction and incidental splenomegaly. 3. No acute intra-abdominal/pelvic abnormalities on this noncontrast exam. CTDI 28.13
[2016-12-18 13:26] LABS: Bilirubin NEGATIVE (NEGATIVE); Collection Type VOID; Glucose NEGATIVE (NEGATIVE); Leukocyte Esterase NEGATIVE (NEGATIVE)
[2016-12-18 13:27] LABS: Blood 250 Ery/ul (0-5); COMPLETE URINE MICROSCOPIC? YES
[2016-12-18 13:28] VITALS: O2SAT 97
[2016-12-18 13:36] LABS: Bacteria MODERATE /HPF (NEGATIVE); Epithelial Cells FEW /HPF (FEW); Mucus MODERATE /HPF (NEGATIVE)
[2016-12-18 13:57] VITALS: BP 144/85; PULSE 86
== END 2016-12-18 14:01 ==
LOC: ED 11:47
DX: N20.0 Calculus of kidney (principal); N23 Unspecified renal colic; R10.9 Unspecified abdominal pain
CPT/HCPCS: 36000; 36415; 74176; 80048; 81000; 85025; 93041; 96360; 96374; 96375; 99284; J1170; J1200; J2405

== ENCOUNTER 2017-01-11 22:46 | Emergency (ER) | payer OTHER ==
[2017-01-11] MEDS ORDERED: Sodium Chloride 0.9% 1000 ML 1,000 ML IV STA (23:04)
--- NOTE | 2017-01-11 23:04 | ERPHSYRPT ---
- History of Present Illness Time Seen by Provider: 01/11/17 23:01 Historian: patient, family Exam Limitations: no limitations Physician History: 31 year old male with hx kidney stones , last one month ago and has similar pain now on left ; abd is nontender wihtout peritoneal signs or masses; no hermiea; testicles nontender; Timing/Duration: today, day(s) Activities at Onset: none Quality: sharpness, stabbing Abdominal Pain Onset Location: LLQ Pain Radiation: LLQ Severity of Pain-Max: moderate Severity of Pain-Current: moderate Associated Symptoms: denies symptoms Previous symptoms: different symptoms, recently seen Allergies/Adverse Reactions: ketorolac tromethamine [From Toradol] Allergy (Verified 12/03/16 01:43) Itching shrimp Allergy (Verified 12/03/16 01:43) Home Medications: Escitalopram Oxalate [Lexapro] 1 tab PO DAILY 02/25/16 [History] Esomeprazole Magnesium [Nexium] 40 mg PO DAILY 02/25/16 [History] Lorazepam 0.5 mg [Ativan 0.5 MG] 1 mg PO TID PRN 02/25/16 [History] Temazepam [Restoril] 30 mg PO DAILY PRN 02/25/16 [History] Testosterone [Androgel] 150 gm IM WEEKLY 02/25/16 [History] Hx Tetanus, Diphtheria Vaccination/Date Given: Yes Hx Influenza Vaccination/Date Given: Yes Hx Pneumococcal Vaccination/Date Given: No - Review of Systems Constitutional: No Fever, No Chills Eyes: No Symptoms Ears, Nose, & Throat: No Symptoms Respiratory: No Cough, No Dyspnea Cardiac: No Chest Pain, No Edema, No Syncope Abdominal/Gastrointestinal: Abdominal Pain, No Nausea, No Vomiting, No Diarrhea Genitourinary Symptoms: No Dysuria Musculoskeletal: No Back Pain, No Neck Pain Skin: No Rash Neurological: No Dizziness, No Focal Weakness, No Sensory Changes Psychological: No Symptoms Endocrine: No Symptoms All Other Systems: Reviewed and Negative - Past Medical History Pertinent Past Medical History: Yes GI Medical History: GERD History: Other Psycho-Social History: Anxiety Other Medical History: Kallmann's Disease - frequent kidney stones - Past Surgical History Past Surgical History: Yes Other Surgical History: nephrolithiasis removal - egd - colonoscopy - Social History Smoking Status: Never smoker Exposure to second hand smoke: No Drug Use: none Patient Lives Alone: No - Nursing Vital Signs Nursing Vital Signs: Initial Vital Signs Temperature 98.5 F 01/11/17 22:53 Pulse Rate 108 H 01/11/17 22:53 Respiratory Rate 20 01/11/17 22:53 Blood Pressure 178/111 01/11/17 22:53 O2 Sat by Pulse Oximetry 97 01/11/17 22:53 Pain Scale Pain Intensity 2 - Physical Exam General Appearance: no apparent distress, alert Eye Exam: PERRL/EOMI, eyes nml inspection Ears, Nose, Throat Exam: normal ENT inspection, pharynx normal, moist mucous membranes Neck Exam: normal inspection, non-tender, supple, full range of motion Respiratory Exam: normal breath sounds, lungs clear, No respiratory distress Cardiovascular Exam: regular rate/rhythm, normal heart sounds Gastrointestinal/Abdomen Exam: soft, No tenderness, No mass, No pulsatile mass, No rebound, No hernia, No organomegaly Male Genitalia Exam: normal genitalia, No testicular tenderness, No testicular mass Rectal Exam: deferred Back Exam: normal inspection, normal range of motion, No CVA tenderness, No vertebral tenderness Extremity Exam: normal inspection, normal range of motion, pelvis stable Neurologic Exam: alert, oriented x 3, cooperative, normal mood/affect, nml cerebellar function, sensation nml, No motor deficits Skin Exam: normal color, warm, dry SpO2: 97 Oxygen Delivery: Room Air - Course Nursing assessment & vital signs reviewed: Yes EKG Interpreted by Me: Sinus Rhythm, NORMAL AXIS, Non-specific ST Changes - CT Exams Abdomen/Pelvis CT Interpretation: Tele-radiologist Report, Normal Appendix, No appendicitis, Other (renal masses and stones; increased ascending colon) Ordered Tests: Active Orders 24 hr Category Date Time Status Clean Catch Urine Specimen STAT Care 01/11/17 23:04 Active EKG-ER Only STAT Care 01/11/17 23:06 Active IV Insertion STAT Care 01/11/17 23:04 Active IV Insertion STAT Care 01/12/17 01:03 Active NPO (ED) STAT Care 01/11/17 23:04 Active ABDOMEN AND PELVIS W/0 CONTRAS [CT] Stat Exams 01/12/17 00:10 Taken KIDNEY [US] Stat Exams 01/11/17 23:05 Taken AMYLASE Stat Lab 01/11/17 23:00 Completed CBC W DIFF Stat Lab 01/11/17 23:00 Completed CMP Stat Lab 01/11/17 23:00 Completed LIPASE Stat Lab 01/11/17 23:00 Completed Lactic Acid Stat Lab 01/11/17 23:44 Completed Lactic Acid Stat Lab 01/12/17 01:44 Ordered Lactic Acid Stat Lab 01/12/17 01:49 Completed TROPONIN Q3H Lab 01/11/17 23:00 Completed TROPONIN Q3H Lab 01/12/17 02:15 Ordered TROPONIN Q3H Lab 01/12/17 05:15 Ordered TROPONIN Q3H Lab 01/12/17 08:15 Ordered TROPONIN Q3H Lab 01/12/17 11:15 Ordered UA W/RFX UR CULTURE Stat Lab 01/11/17 23:10 Completed Medication Summary Discontinued Medications Generic Name Dose Route Start Last Admin Trade Name Freq PRN Reason Stop Dose Admin Diphenhydramine HCl 25 mg 01/12/17 00:28 01/12/17 01:06 Benadryl 50 Mg/Ml IV 01/12/17 00:29 25 mg STAT ONE Administration Diphenhydramine HCl Confirm 01/12/17 01:01 Benadryl 50 Mg/Ml Administered 01/12/17 01:02 Dose 50 mg .ROUTE .STK-MED ONE Hydromorphone HCl 1 mg 01/11/17 23:09 01/11/17 23:28 Hydromorphone 1 Mg/Ml Ampule IV 01/11/17 23:10 1 mg STAT ONE Administration Hydromorphone HCl Confirm 01/11/17 23:24 Hydromorphone 1 Mg/Ml Ampule Administered 01/11/17 23:25 Dose 1 mg .ROUTE .STK-MED ONE Hydromorphone HCl 1 mg 01/12/17 00:27 01/12/17 01:05 Hydromorphone 1 Mg/Ml Ampule IV 01/12/17 00:28 1 mg STAT ONE Administration Hydromorphone HCl Confirm 01/12/17 01:01 Hydromorphone 1 Mg/Ml Ampule Administered 01/12/17 01:02 Dose 1 mg .ROUTE .STK-MED ONE Sodium Chloride 1,000 mls @ 999 mls/hr 01/11/17 23:04 01/11/17 23:29 Sodium Chloride 0.9% 1000 Ml IV 01/12/17 00:04 999 mls/hr .Q1H1M STA Administration Sodium Chloride Confirm 01/11/17 23:24 Sodium Chloride 0.9% 1000 Ml Administered 01/11/17 23:25 Dose 1,000 mls @ ud .ROUTE .STK-MED ONE Metronidazole 500 mg in 100 mls @ 200 mls/hr 01/12/17 01:00 01/12/17 01:25 Flagyl 500 Mg Ivpb IV 01/12/17 01:29 200 mls/hr STAT STA Administration Metronidazole Confirm 01/12/17 01:22 Flagyl 500 Mg Ivpb Administered 01/12/17 01:23 Dose 500 mg in 100 mls @ ud IV .STK-MED ONE Promethazine HCl 25 mg 01/11/17 23:09 01/11/17 23:28 Phenergan 25 Mg Inj IM 01/11/17 23:10 25 mg STAT ONE Administration Promethazine HCl Confirm 01/11/17 23:24 Phenergan 25 Mg Inj Administered 01/11/17 23:25 Dose 25 mg .ROUTE .STK-MED ONE Promethazine HCl 50 mg 01/12/17 00:28 01/12/17 01:07 Phenergan 25 Mg Inj IM 01/12/17 00:29 50 mg STAT ONE Administration Promethazine HCl Confirm 01/12/17 01:01 Phenergan 25 Mg Inj Administered 01/12/17 01:02 Dose 25 mg .ROUTE .STK-MED ONE Promethazine HCl Confirm 01/12/17 01:02 Phenergan 25 Mg Inj Administered 01/12/17 01:03 Dose 25 mg .ROUTE .STK-MED ONE Lab/Rad Data: Laboratory Result Diagrams 01/11/17 23:00 01/11/17 23:00 Laboratory Results 01/12/17 01/11/17 01/11/17 Range/Units 01:49 23:44 23:10 WBC (4.0-10.5) K/mm3 RBC (4.1-5.6) M/mm3 Hgb (12.5-18.0) gm/dl Hct (42-50) % MCV (78-100) fl MCH (26-32) pg MCHC (32-36) g/dl RDW (11.5-14.0) % Plt Count (150-450) K/mm3 MPV (6-9.5) fl Gran % (36.0-66.0) % Lymphocytes % (24.0-44.0) % Monocytes % (0.0-12.0) % Eosinophils % (0.00-5.0) % Basophils % (0.0-0.4) % Basophils # (0-0.4) Sodium (136-145) mEq/L Potassium (3.5-5.1) mEq/L Chloride (98-107) mEq/L Carbon Dioxide (21-32) mEq/L Anion Gap (5-15) MEQ/L BUN (9-20) mg/dL Creatinine (0.55-1.30) mg/dl Estimated GFR ML/MIN Glucose (70-110) MG/DL Lactic Acid 0.9 2.1 H (0.4-2.0) Calcium (8.5-10.1) mg/dL Total Bilirubin (0.2-1.0) mg/dL AST (15-37) U/L ALT (12-78) U/L Alkaline Phosphatase (46-116) U/L Troponin I (0.000-0.056) ng/ml Serum Total Protein (6.4-8.2) gm/dL Albumin (3.4-5.0) g/dL Amylase (25-115) U/L Lipase (73-393) U/L Ur Collection Type CLEAN CATCH Urine Color YELLOW (YELLOW) Urine Appearance CLOUDY (CLEAR) Urine pH 6.5 (5-6) Ur Specific [place] 1.020 (1.005-1.025) Urine Protein NEGATIVE (Negative) Urine Ketones NEGATIVE (NEGATIVE) Urine Blood NEGATIVE (0-5) Romario/ul Urine Nitrite NEGATIVE (NEGATIVE) Urine Bilirubin NEGATIVE (NEGATIVE) Urine Urobilinogen NORMAL (0-1) mg/dL Ur Leukocyte Esterase NEGATIVE (NEGATIVE) Urine Glucose NEGATIVE (NEGATIVE) mg/dL Specimen Received 01/11/17:2310 01/11/17 01/11/17 01/11/17 Range/Units 23:00 23:00 23:00 WBC 7.7 (4.0-10.5) K/mm3 RBC 5.49 (4.1-5.6) M/mm3 Hgb 15.5 (12.5-18.0) gm/dl Hct 47.0 (42-50) % MCV 85.6 (78-100) fl MCH 28.2 (26-32) pg MCHC 33.0 (32-36) g/dl RDW 14.0 (11.5-14.0) % Plt Count 268 (150-450) K/mm3 MPV 9.6 H (6-9.5) fl Gran % 73.9 H (36.0-66.0) % Lymphocytes % 19.4 L (24.0-44.0) % Monocytes % 6.1 (0.0-12.0) % Eosinophils % 0.5 (0.00-5.0) % Basophils % 0.1 (0.0-0.4) % Basophils # 0.01 (0-0.4) Sodium 142 (136-145) mEq/L Potassium 3.5 (3.5-5.1) mEq/L Chloride 105 (98-107) mEq/L Carbon Dioxide 26.8 (21-32) mEq/L Anion Gap 14.0 (5-15) MEQ/L BUN 7 L (9-20) mg/dL Creatinine 1.03 (0.55-1.30) mg/dl Estimated GFR > 60 ML/MIN Glucose 126 H (70-110) MG/DL Lactic Acid (0.4-2.0) Calcium 8.9 (8.5-10.1) mg/dL Total Bilirubin 0.20 (0.2-1.0) mg/dL AST 49 H (15-37) U/L ALT 93 H (12-78) U/L Alkaline Phosphatase 70 (46-116) U/L Troponin I < 0.017 (0.000-0.056) ng/ml Serum Total Protein 7.1 (6.4-8.2) gm/dL Albumin 4.0 (3.4-5.0) g/dL Amylase 76 (25-115) U/L Lipase 148 (73-393) U/L Ur Collection Type Urine Color (YELLOW) Urine Appearance (CLEAR) Urine pH (5-6) Ur Specific [place] (1.005-1.025) Urine Protein (Negative) Urine Ketones (NEGATIVE) Urine Blood (0-5) Romario/ul Urine Nitrite (NEGATIVE) Urine Bilirubin (NEGATIVE) Urine Urobilinogen (0-1) mg/dL Ur Leukocyte Esterase (NEGATIVE) Urine Glucose (NEGATIVE) mg/dL Specimen Received - Progress Progress: improved, re-examined Progress Note: 01/12/17 02:33 pt pain is controlled and results discussed that we are unable to identify the source of his pain and the limitations of the workup performed- he understands and michelle pursue w/u with PCP; he wishes presumptive Tx for Cdif exposure , but is unable to give stool and will do this with PCP; he understands that undetected pathology may be evolving; Counseled pt/family regarding: lab results, diagnosis, need for follow-up, rad results - Departure Time of Disposition: 02:35 Departure Disposition: Home Clinical Impression: Recurrent nephrolithiasis, Abdominal pain, c diff exposure Condition: Good Critical Care Time: No Referrals: RASHI ALVARADO JR [Primary Care Provider] - Instructions: Abdominal Pain-Adult, Kidney Stones, Antibiotic -- associated Colitis -- C difficile Additional Instructions: see your Dr to confirm that C Diff is irradicated; we have not identified a precise cause for your abdominal pain and further workup is needed with your Dr, - return meantime if not improving-since additional undetected pathology may be evolving. there are kidney cysts or nodules and adrenal mass which should be followed with your Dr. but are not likely a cause of your pain. also see your Dr for your BP. Prescriptions: Hydrocodone/Acetaminophen [[place] 5-325 Tablet] 1 each PO Q4-6HPRN PRN #14 tablet PRN Reason: Pain Metronidazole 500 mg [Flagyl 500 MG] 500 mg PO TID #30 tablet
[2017-01-11] MEDS ORDERED: Phenergan 25 MG INJ IM ONE (23:09)
[2017-01-11] MEDS ORDERED: Hydromorphone 1 mg/ml Ampule IV ONE (23:09)
[2017-01-11 23:11] LABS: BASOPHIL % 0.1 % (0.0-0.4); Eosinophil % 0.5 % (0.00-5.0); Granulocytes % 73.9 % (36.0-66.0); Lymphocytes % 19.4 % (24.0-44.0); Mean Cell Volume 85.6 fl (78-100); Mean Corpuscular Hemoglobin 28.2 pg (26-32); Mean Platelet Volume 9.6 fl (6-9.5); Monocytes % 6.1 % (0.0-12.0); Platelet Count 268 K/mm3 (150-450); Red Blood Count 5.49 M/mm3 (4.1-5.6); White Blood Count 7.7 K/mm3 (4.0-10.5)
[2017-01-11] MEDS ORDERED: Sodium Chloride 0.9% 1000 ML 1,000 ML ONE (23:24)
[2017-01-11] MEDS ORDERED: Phenergan 25 MG INJ ONE (23:24)
[2017-01-11] MEDS ORDERED: Hydromorphone 1 mg/ml Ampule ONE (23:24)
[2017-01-11 23:29] LABS: Collection Type CLEAN CATCH
[2017-01-11 23:30] LABS: ADD URINE CULTURE? NO (NO); Bilirubin NEGATIVE (NEGATIVE); Blood NEGATIVE Ery/ul (0-5); COMPLETE URINE MICROSCOPIC? NO; Glucose NEGATIVE (NEGATIVE); Leukocyte Esterase NEGATIVE (NEGATIVE)
[2017-01-11 23:36] LABS: ALKALINE PHOSPHATASE 70 U/L (46-116); BLOOD UREA NITROGEN 7 mg/dL (9-20); CHLORIDE 105 mEq/L (98-107); Carbon Dioxide 26.8 mEq/L (21-32); Glucose 126 MG/DL (70-110); LIPASE 148 U/L (73-393); Potassium 3.5 mEq/L (3.5-5.1); SGOT/AST 49 U/L (15-37); SGPT/ALT 93 U/L (12-78); SODIUM 142 mEq/L (136-145); Total Protein 7.1 gm/dL (6.4-8.2)
[2017-01-11 23:44] LABS: Lactic Acid 2.1 (0.4-2.0)
[2017-01-12] MEDS ORDERED: Hydromorphone 1 mg/ml Ampule IV ONE ×2 (00:27→02:42)
[2017-01-12] MEDS ORDERED: Phenergan 25 MG INJ IM ONE (00:28)
[2017-01-12] MEDS ORDERED: BENADRYL 50 MG/ML IV ONE ×2 (00:28→02:42)
[2017-01-12] MEDS ORDERED: FLAGYL 500 MG IVPB 500 MG/100 ML BAG IV STA (01:00)
[2017-01-12] MEDS ORDERED: Hydromorphone 1 mg/ml Ampule ONE ×2 (01:01→02:59)
[2017-01-12] MEDS ORDERED: Phenergan 25 MG INJ ONE ×2 (01:01→01:02)
[2017-01-12] MEDS ORDERED: BENADRYL 50 MG/ML ONE ×2 (01:01→02:58)
[2017-01-12] MEDS ORDERED: FLAGYL 500 MG IVPB 500 MG/100 ML BAG IV ONE (01:22)
[2017-01-12 01:32] VITALS: PULSE 76
[2017-01-12 03:10] VITALS: BP 156/71; O2SAT 95
--- NOTE | 2017-01-12 10:59 | XRAY ---
Indication: Left flank pain. History of stones. Multiple contiguous axial images obtained through the abdomen and pelvis without contrast as ordered. Comparison: December 18, 2016. Lung bases clear. Heart is not enlarged. There are again 2 nonobstructing left renal and single right renal micro-calculi. Also stable right mid renal cortical cyst and tiny right adrenal adenoma. Again splenomegaly today measuring 14 cm in greatest axial dimension. Noncontrasted stomach and bowel loops appear nonobstructed. Stable scattered diverticulosis without diverticulitis. Normal appendix. No free fluid/air. Remaining liver, gallbladder, pancreas, spleen, adrenal glands, kidneys, ureters, bladder, and aorta appear unremarkable for noncontrast exam. Osseous structures intact. Impression: 1. Stable nonobstructing bilateral micro-calculi and right renal cyst. 2. Also stable right adrenal adenoma, splenomegaly, and colonic diverticulosis. 3. No new/acute intra-abdominal/pelvic abnormalities on this noncontrast exam. Comment: Preliminary interpretation was made by C. No discrepancy. CTDI 23.55
--- NOTE | 2017-01-12 11:02 | XRAY ---
Indication: Left flank pain. History of stones. Two-dimensional renal sonogram performed. Comparison: February 25, 2016. Both kidneys again normal in reniform shape with normal color perfusion. Right kidney measures 12.6 x 6.4 x 6.8 cm and the left measures 14.3 x 7.2 x 6.0 cm. Stable 1.8 cm right renal cyst. No solid renal mass, hydronephrosis, or perinephric fluid. Cortical medullary differentiation maintained. Images of the urinary bladder unremarkable. Normal bilateral ureteral jets. Impression: Stable right renal cyst in a otherwise negative renal sonogram. Comment: Preliminary report was given.
== END 2017-01-12 03:20 | disposition home or self-care (01) ==
LOC: ED 22:46
DX: N20.0 Calculus of kidney (principal); Z87.442 Personal history of urinary calculi; R10.9 Unspecified abdominal pain; Z20.818 Contact with and (suspected) exposure to other bacterial communicable diseases; R10.32 Left lower quadrant pain; E23.0 Hypopituitarism
CPT/HCPCS: 36000; 36415; 74176; 76770; 80053; 81002; 82150; 83605; 83690; 84484; 85025; 93005; 96360; 96365; 96372; 96374; 96375; 99284; 99285; J1170; J1200; J2550

== ENCOUNTER 2017-01-15 00:39 | Emergency (ER) | payer OTHER ==
[2017-01-15] MEDS ORDERED: Hydromorphone 1 mg/ml Ampule IV ONE ×2 (01:01→03:52)
[2017-01-15] MEDS ORDERED: Sodium Chloride 0.9% 1000 ML 1,000 ML IV STA (01:01)
[2017-01-15] MEDS ORDERED: Phenergan 25 MG INJ IV ONE (01:01)
[2017-01-15] MEDS ORDERED: Phenergan 25 MG INJ ONE (01:03)
[2017-01-15] MEDS ORDERED: Sodium Chloride 0.9% 1000 ML 1,000 ML ONE (01:04)
--- NOTE | 2017-01-15 01:06 | ERPHSYRPT ---
- History of Present Illness Time Seen by Provider: 01/15/17 00:51 Historian: patient Exam Limitations: no limitations Patient Subjective Stated Complaint: pt was seen in er on friday and work-up for co abd pain -he is worried he has c-diff because he has been taking care of a pt with c-diff -he went to see his dr and was told to hold off on filling rx for flagyl becmernaue he did not have diarrhea -tonight since 1699 he has had 5 watery diarrhea stools dark in color with co left side mid abed pain sharp and burning -he last ate niuean this sofia no vomiting and he had temp of 101.6 Triage Nursing Assessment: pt is awake and alert and able to answer questions Physician History: FOR THE PAST 3 DAYS PT HAS HAD CONSTANT SHARP LLQ ABDOMINAL PAIN; FOR THE PAST DAY FEVER UP TO 102.6 DEGREES, CHILLS, DYSURIA AND DIAPHORESIS; FOR THE PAST 8 HOURS WATERY DIARRHEA X6, NAUSEA AND VOMITING X2. ABOUT 8.5 HOURS AGO PT HAD MID CHEST "HURT" FOR 30 MINUTES WITHOUT RECURRENCE. Allergies/Adverse Reactions: ketorolac tromethamine [From Toradol] Allergy (Verified 01/15/17 01:00) Itching shrimp Allergy (Verified 01/15/17 01:00) Home Medications: Escitalopram Oxalate [Lexapro] 1 tab PO DAILY 02/25/16 [History] Esomeprazole Magnesium [Nexium] 40 mg PO DAILY 02/25/16 [History] Lorazepam 0.5 mg [Ativan 0.5 MG] 1 mg PO TID PRN 02/25/16 [History] Temazepam [Restoril] 30 mg PO DAILY PRN 02/25/16 [History] Testosterone [Androgel] 150 gm IM WEEKLY 02/25/16 [History] Hx Tetanus, Diphtheria Vaccination/Date Given: Yes Hx Influenza Vaccination/Date Given: Yes Hx Pneumococcal Vaccination/Date Given: No - Review of Systems Constitutional: Fever, Chills Respiratory: No Dyspnea Cardiac: Chest Pain Abdominal/Gastrointestinal: Abdominal Pain, Nausea, Vomiting, Diarrhea Genitourinary Symptoms: Dysuria Endocrine: Excessive Sweating All Other Systems: Reviewed and Negative - Past Medical History Pertinent Past Medical History: Yes Neurological History: Migraines ENT History: No Pertinent History Cardiac History: No Pertinent History Respiratory History: No Pertinent History Endocrine Medical History: No Pertinent History Musculoskeletal History: No Pertinent History GI Medical History: GERD History: Other Psycho-Social History: Anxiety Male Reproductive Disorders: No Pertinent History Other Medical History: Kallmann's Disease - frequent kidney stones - Past Surgical History Past Surgical History: Yes Neuro Surgical History: No Pertinent History Cardiac: No Pertinent History Respiratory: No Pertinent History Gastrointestinal: No Pertinent History Genitourinary: No Pertinent History Musculoskeletal: No Pertinent History Male Surgical History: No Pertinent History Other Surgical History: nephrolithiasis removal - egd - colonoscopy wilsdom teeth removed -lipoma removed from back - Social History Smoking Status: Never smoker Exposure to second hand smoke: No Drug Use: none Patient Lives Alone: No - Nursing Vital Signs Nursing Vital Signs: Initial Vital Signs Temperature 98.7 F 01/15/17 00:51 Pulse Rate 108 H 01/15/17 00:51 Respiratory Rate 16 01/15/17 00:51 Blood Pressure 150/96 01/15/17 00:51 O2 Sat by Pulse Oximetry 96 01/15/17 00:51 Pain Scale Pain Intensity 6 - Physical Exam General Appearance: alert Eye Exam: PERRL/EOMI Ears, Nose, Throat Exam: TMs normal, moist mucous membranes, pharyngeal erythema Neck Exam: normal inspection Respiratory Exam: lungs clear Cardiovascular Exam: normal heart sounds Gastrointestinal/Abdomen Exam: soft, tenderness (MILD LLQ ABDOMINAL TENDERNESS) , other (B.S. MODERATELY HYPERACTIVE AND NORMOTONIC.), No guarding Back Exam: normal range of motion Extremity Exam: normal inspection, No pedal edema Neurologic Exam: alert, cooperative Skin Exam: warm, dry SpO2 Interpretation: normal SpO2: 96 Oxygen Delivery: Room Air - Course Nursing assessment & vital signs reviewed: Yes EKG Interpreted by Me: RATE (108), Sinus Tach, NORMAL AXIS, NORMAL INTERVALS - Radiology Exams Chest X-ray Interpretation: Interpreted by me, No Pneumonia Abdomen X-ray Interpretation: Interpreted by me, Negative Ordered Tests: Active Orders 24 hr Category Date Time Status Clean Catch Urine Specimen STAT Care 01/15/17 01:01 Active EKG-ER Only STAT Care 01/15/17 01:01 Active IV Insertion STAT Care 01/15/17 01:01 Active OBSTR/ACUTE ABDOMEN SERIES Stat Exams 01/15/17 01:01 Taken AMYLASE Stat Lab 01/15/17 01:00 Completed BLOOD CULTURE Stat Lab 01/15/17 01:35 Received BMP Stat Lab 01/15/17 04:20 Completed CBC W DIFF Stat Lab 01/15/17 01:00 Completed CMP Stat Lab 01/15/17 01:00 Completed CULTURE, THROAT Stat Lab 01/15/17 01:35 Received CULTURE,URINE Stat Lab 01/15/17 01:45 Received Erythrocyte Sedimentation Rate Stat Lab 01/15/17 01:00 Completed LIPASE Stat Lab 01/15/17 01:00 Completed MAG [MAGNESIUM] Stat Lab 01/15/17 01:00 Completed MAGNESIUM Stat Lab 01/15/17 04:20 Completed Menard Screen Stat Lab 01/15/17 01:00 Completed Occult Blood,Stool Other Stat Lab 01/15/17 01:01 Uncollected STREP SCREEN-BETA A Stat Lab 01/15/17 01:35 Completed TROPONIN Q3H Lab 01/15/17 01:00 Completed TROPONIN Q3H Lab 01/15/17 04:20 Completed TROPONIN Q3H Lab 01/15/17 07:15 Ordered TROPONIN Q3H Lab 01/15/17 10:15 Ordered TROPONIN Q3H Lab 01/15/17 13:15 Ordered UA W/ MICROSCOPIC Stat Lab 01/15/17 01:45 Completed Medication Summary Generic Name Dose Route Start Last Admin Trade Name Freq PRN Reason Stop Dose Admin Potassium Chloride/Sodium Chloride 1,000 mls @ 500 mls/hr 01/15/17 02:45 02:51 Sodium Chloride 0.9% W/ 20 Meq Kcl/Liter IV 02/14/17 02:44 500 mls/hr .Q2H KRAIG Administration Discontinued Medications Generic Name Dose Route Start Last Admin Trade Name Freq PRN Reason Stop Dose Admin Diphenhydramine HCl 25 mg 01/15/17 02:44 01/15/17 02:50 Benadryl 50 Mg/Ml IV 01/15/17 02:45 25 mg STAT ONE Administration Diphenhydramine HCl Confirm 01/15/17 02:48 Benadryl 50 Mg/Ml Administered 01/15/17 02:49 Dose 50 mg .ROUTE .STK-MED ONE Hydromorphone HCl 1 mg 01/15/17 01:01 01/15/17 01:15 Hydromorphone 1 Mg/Ml Ampule IV 01/15/17 01:02 1 mg STAT ONE Administration Hydromorphone HCl Confirm 01/15/17 01:09 Hydromorphone 1 Mg/Ml Ampule Administered 01/15/17 01:10 Dose 1 mg .ROUTE .STK-MED ONE Hydromorphone HCl 1 mg 01/15/17 03:52 01/15/17 03:56 Hydromorphone 1 Mg/Ml Ampule IV 01/15/17 03:53 1 mg STAT ONE Administration Hydromorphone HCl Confirm 01/15/17 03:55 Hydromorphone 1 Mg/Ml Ampule Administered 01/15/17 03:56 Dose 1 mg .ROUTE .STK-MED ONE Sodium Chloride 1,000 mls @ 999 mls/hr 01/15/17 01:01 01/15/17 01:08 Sodium Chloride 0.9% 1000 Ml IV 01/15/17 02:01 999 mls/hr .Q1H1M STA Administration Sodium Chloride Confirm 01/15/17 01:04 Sodium Chloride 0.9% 1000 Ml Administered 01/15/17 01:05 Dose 1,000 mls @ ud .ROUTE .STK-MED ONE Magnesium Sulfate/Dextrose 100 mls @ 200 mls/hr 01/15/17 02:38 01/15/17 02:51 Magnesium 1 Gm / 100 Ml D5w IV 01/15/17 03:07 200 mls/hr STAT ONE Administration Magnesium Sulfate/Dextrose Confirm 01/15/17 02:48 Magnesium 1 Gm / 100 Ml D5w Administered 01/15/17 02:49 Dose 100 mls @ ud IV .STK-MED ONE Promethazine HCl 12.5 mg 01/15/17 01:01 01/15/17 01:08 Phenergan 25 Mg Inj IV 01/15/17 01:02 12.5 mg STAT ONE Administration Promethazine HCl Confirm 01/15/17 01:03 Phenergan 25 Mg Inj Administered 01/15/17 01:04 Dose 25 mg .ROUTE .STK-MED ONE Lab/Rad Data: Laboratory Result Diagrams 01/15/17 01:00 01/15/17 04:20 Laboratory Results 01/15/17 01/15/17 01/15/17 Range/Units 04:20 04:20 01:45 WBC (4.0-10.5) K/mm3 RBC (4.1-5.6) M/mm3 Hgb (12.5-18.0) gm/dl Hct (42-50) % MCV (78-100) fl MCH (26-32) pg MCHC (32-36) g/dl RDW (11.5-14.0) % Plt Count (150-450) K/mm3 MPV (6-9.5) fl Gran % (36.0-66.0) % Lymphocytes % (24.0-44.0) % Monocytes % (0.0-12.0) % Eosinophils % (0.00-5.0) % Basophils % (0.0-0.4) % Basophils # (0-0.4) ESR (0-15) mm/hr Sodium 143 (136-145) mEq/L Potassium 3.6 (3.5-5.1) mEq/L Chloride 105 (98-107) mEq/L Carbon Dioxide 25.5 (21-32) mEq/L Anion Gap 15.7 H (5-15) MEQ/L BUN 7 L (9-20) mg/dL Creatinine 0.96 (0.55-1.30) mg/dl Estimated GFR > 60 ML/MIN Glucose 100 (70-110) MG/DL Calcium 8.4 L (8.5-10.1) mg/dL Magnesium 1.9 (1.8-2.4) mg/dL Total Bilirubin (0.2-1.0) mg/dL AST (15-37) U/L ALT (12-78) U/L Alkaline Phosphatase (46-116) U/L Troponin I < 0.017 (0.000-0.056) ng/ml Serum Total Protein (6.4-8.2) gm/dL Albumin (3.4-5.0) g/dL Amylase (25-115) U/L Lipase (73-393) U/L Ur Collection Type CLEAN CATCH Urine Color STRAW (YELLOW) Urine Appearance CLEAR (CLEAR) Urine pH 5.5 (5-6) Ur Specific [place] 1.025 (1.005-1.025) Urine Protein 100 (Negative) Urine Ketones SMALL (NEGATIVE) Urine Blood 50 (0-5) Romario/ul Urine Nitrite NEGATIVE (NEGATIVE) Urine Bilirubin NEGATIVE (NEGATIVE) Urine Urobilinogen NORMAL (0-1) mg/dL Ur Leukocyte Esterase NEGATIVE (NEGATIVE) Urine Microscopic RBC 0-2 (0-2) /HPF Urine Microscopic WBC 0-2 (0-5) /HPF Ur Epithelial Cells FEW (FEW) /HPF Urine Bacteria FEW (NEGATIVE) /HPF Hyaline Casts 5-10 (0-2) /LPF Urine Mucus MODERATE (NEGATIVE) /HPF Urine Glucose 100 (NEGATIVE) mg/dL Monoscreen (Negative) Streptococcus Screen (Negative) Specimen Received 01/15/17:0145 01/15/17 01/15/17 01/15/17 Range/Units 01:35 01:00 01:00 WBC (4.0-10.5) K/mm3 RBC (4.1-5.6) M/mm3 Hgb (12.5-18.0) gm/dl Hct (42-50) % MCV (78-100) fl MCH (26-32) pg MCHC (32-36) g/dl RDW (11.5-14.0) % Plt Count (150-450) K/mm3 MPV (6-9.5) fl Gran % (36.0-66.0) % Lymphocytes % (24.0-44.0) % Monocytes % (0.0-12.0) % Eosinophils % (0.00-5.0) % Basophils % (0.0-0.4) % Basophils # (0-0.4) ESR 4 (0-15) mm/hr Sodium (136-145) mEq/L Potassium (3.5-5.1) mEq/L Chloride (98-107) mEq/L Carbon Dioxide (21-32) mEq/L Anion Gap (5-15) MEQ/L BUN (9-20) mg/dL Creatinine (0.55-1.30) mg/dl Estimated GFR ML/MIN Glucose (70-110) MG/DL Calcium (8.5-10.1) mg/dL Magnesium (1.8-2.4) mg/dL Total Bilirubin (0.2-1.0) mg/dL AST (15-37) U/L ALT (12-78) U/L Alkaline Phosphatase (46-116) U/L Troponin I (0.000-0.056) ng/ml Serum Total Protein (6.4-8.2) gm/dL Albumin (3.4-5.0) g/dL Amylase (25-115) U/L Lipase (73-393) U/L Ur Collection Type Urine Color (YELLOW) Urine Appearance (CLEAR) Urine pH (5-6) Ur Specific [place] (1.005-1.025) Urine Protein (Negative) Urine Ketones (NEGATIVE) Urine Blood (0-5) Romario/ul Urine Nitrite (NEGATIVE) Urine Bilirubin (NEGATIVE) Urine Urobilinogen (0-1) mg/dL Ur Leukocyte Esterase (NEGATIVE) Urine Microscopic RBC (0-2) /HPF Urine Microscopic WBC (0-5) /HPF Ur Epithelial Cells (FEW) /HPF Urine Bacteria (NEGATIVE) /HPF Hyaline Casts (0-2) /LPF Urine Mucus (NEGATIVE) /HPF Urine Glucose (NEGATIVE) mg/dL Monoscreen NEGATIVE (Negative) Streptococcus Screen NEGATIVE (Negative) Specimen Received 01/15/17 01/15/17 01/15/17 Range/Units 01:00 01:00 01:00 WBC (4.0-10.5) K/mm3 RBC (4.1-5.6) M/mm3 Hgb (12.5-18.0) gm/dl Hct (42-50) % MCV (78-100) fl MCH (26-32) pg MCHC (32-36) g/dl RDW (11.5-14.0) % Plt Count (150-450) K/mm3 MPV (6-9.5) fl Gran % (36.0-66.0) % Lymphocytes % (24.0-44.0) % Monocytes % (0.0-12.0) % Eosinophils % (0.00-5.0) % Basophils % (0.0-0.4) % Basophils # (0-0.4) ESR (0-15) mm/hr Sodium 142 (136-145) mEq/L Potassium 3.2 L (3.5-5.1) mEq/L Chloride 103 (98-107) mEq/L Carbon Dioxide 25.8 (21-32) mEq/L Anion Gap 16.5 H (5-15) MEQ/L BUN 7 L (9-20) mg/dL Creatinine 1.19 (0.55-1.30) mg/dl Estimated GFR > 60 ML/MIN Glucose 125 H (70-110) MG/DL Calcium 9.4 (8.5-10.1) mg/dL Magnesium 1.6 L (1.8-2.4) mg/dL Total Bilirubin 0.40 (0.2-1.0) mg/dL AST 35 (15-37) U/L ALT 79 H (12-78) U/L Alkaline Phosphatase 74 (46-116) U/L Troponin I < 0.017 (0.000-0.056) ng/ml Serum Total Protein 7.8 (6.4-8.2) gm/dL Albumin 4.1 (3.4-5.0) g/dL Amylase 83 (25-115) U/L Lipase 154 (73-393) U/L Ur Collection Type Urine Color (YELLOW) Urine Appearance (CLEAR) Urine pH (5-6) Ur Specific [place] (1.005-1.025) Urine Protein (Negative) Urine Ketones (NEGATIVE) Urine Blood (0-5) Romario/ul Urine Nitrite (NEGATIVE) Urine Bilirubin (NEGATIVE) Urine Urobilinogen (0-1) mg/dL Ur Leukocyte Esterase (NEGATIVE) Urine Microscopic RBC (0-2) /HPF Urine Microscopic WBC (0-5) /HPF Ur Epithelial Cells (FEW) /HPF Urine Bacteria (NEGATIVE) /HPF Hyaline Casts (0-2) /LPF Urine Mucus (NEGATIVE) /HPF Urine Glucose (NEGATIVE) mg/dL Monoscreen (Negative) Streptococcus Screen (Negative) Specimen Received 01/15/17 Range/Units 01:00 WBC 9.5 (4.0-10.5) K/mm3 RBC 5.82 H (4.1-5.6) M/mm3 Hgb 16.2 (12.5-18.0) gm/dl Hct 49.4 (42-50) % MCV 84.9 (78-100) fl MCH 27.8 (26-32) pg MCHC 32.8 (32-36) g/dl RDW 14.0 (11.5-14.0) % Plt Count 309 (150-450) K/mm3 MPV 9.8 H (6-9.5) fl Gran % 65.4 (36.0-66.0) % Lymphocytes % 25.8 (24.0-44.0) % Monocytes % 7.8 (0.0-12.0) % Eosinophils % 0.8 (0.00-5.0) % Basophils % 0.2 (0.0-0.4) % Basophils # 0.02 (0-0.4) ESR (0-15) mm/hr Sodium (136-145) mEq/L Potassium (3.5-5.1) mEq/L Chloride (98-107) mEq/L Carbon Dioxide (21-32) mEq/L Anion Gap (5-15) MEQ/L BUN (9-20) mg/dL Creatinine (0.55-1.30) mg/dl Estimated GFR ML/MIN Glucose (70-110) MG/DL Calcium (8.5-10.1) mg/dL Magnesium (1.8-2.4) mg/dL Total Bilirubin (0.2-1.0) mg/dL AST (15-37) U/L ALT (12-78) U/L Alkaline Phosphatase (46-116) U/L Troponin I (0.000-0.056) ng/ml Serum Total Protein (6.4-8.2) gm/dL Albumin (3.4-5.0) g/dL Amylase (25-115) U/L Lipase (73-393) U/L Ur Collection Type Urine Color (YELLOW) Urine Appearance (CLEAR) Urine pH (5-6) Ur Specific [place] (1.005-1.025) Urine Protein (Negative) Urine Ketones (NEGATIVE) Urine Blood (0-5) Romario/ul Urine Nitrite (NEGATIVE) Urine Bilirubin (NEGATIVE) Urine Urobilinogen (0-1) mg/dL Ur Leukocyte Esterase (NEGATIVE) Urine Microscopic RBC (0-2) /HPF Urine Microscopic WBC (0-5) /HPF Ur Epithelial Cells (FEW) /HPF Urine Bacteria (NEGATIVE) /HPF Hyaline Casts (0-2) /LPF Urine Mucus (NEGATIVE) /HPF Urine Glucose (NEGATIVE) mg/dL Monoscreen (Negative) Streptococcus Screen (Negative) Specimen Received - Departure Time of Disposition: 05:05 Departure Disposition: Home Clinical Impression: DIARRHEA, ABDOMINAL PAIN, VOMITING, HYPOKALEMIA - CORRECTED IN ER, HYPOMAGNESEMIA - CORRECTED IN ER Condition: Stable Critical Care Time: No Referrals: RASHI ALVARADO JR [Primary Care Provider] - Instructions: Abdominal Pain-Adult, Vomiting -- Adult, Diarrhea and Traveler's Diarrhea -- Adult Additional Instructions: FOLLOW UP WITH PRIVATE DOCTOR TODAY. Prescriptions: Promethazine HCl 25 mg [Phenergan 25 mg] 25 mg PO Q4H PRN PRN #14 tablet PRN Reason: Nausea/Vomiting
[2017-01-15] MEDS ORDERED: Hydromorphone 1 mg/ml Ampule ONE ×2 (01:09→03:55)
[2017-01-15 01:42] LABS: BASOPHIL % 0.2 % (0.0-0.4); Eosinophil % 0.8 % (0.00-5.0); Granulocytes % 65.4 % (36.0-66.0); Lymphocytes % 25.8 % (24.0-44.0); Mean Cell Volume 84.9 fl (78-100); Mean Corpuscular Hemoglobin 27.8 pg (26-32); Mean Platelet Volume 9.8 fl (6-9.5); Monocytes % 7.8 % (0.0-12.0); Platelet Count 309 K/mm3 (150-450); Red Blood Count 5.82 M/mm3 (4.1-5.6); White Blood Count 9.5 K/mm3 (4.0-10.5)
[2017-01-15 01:59] LABS: Bilirubin NEGATIVE (NEGATIVE); Blood 50 Ery/ul (0-5); COMPLETE URINE MICROSCOPIC? YES; Collection Type CLEAN CATCH; Glucose 100 mg/dL (NEGATIVE); Leukocyte Esterase NEGATIVE (NEGATIVE)
[2017-01-15 02:00] LABS: Bacteria FEW /HPF (NEGATIVE); Epithelial Cells FEW /HPF (FEW); Mucus MODERATE /HPF (NEGATIVE); WBC 0-2 /HPF (0-5)
[2017-01-15 02:13] LABS: ALBUMIN 4.1 g/dL (3.4-5.0); ALKALINE PHOSPHATASE 74 U/L (46-116); ANION GAP 16.5 MEQ/L (5-15); BLOOD UREA NITROGEN 7 mg/dL (9-20); CHLORIDE 103 mEq/L (98-107); Carbon Dioxide 25.8 mEq/L (21-32); Glucose 125 MG/DL (70-110); LIPASE 154 U/L (73-393); Potassium 3.2 mEq/L (3.5-5.1); SGOT/AST 35 U/L (15-37); SGPT/ALT 79 U/L (12-78); SODIUM 142 mEq/L (136-145); Total Protein 7.8 gm/dL (6.4-8.2)
[2017-01-15] MEDS ORDERED: Magnesium 1 Gm / 100 Ml D5W*** 100 ML IV ONE ×2 (02:38→02:48)
[2017-01-15] MEDS ORDERED: BENADRYL 50 MG/ML IV ONE ×2 (02:44→05:06)
[2017-01-15] MEDS ORDERED: Sodium Chloride 0.9% W/ 20 mEq KCl/LITER 1,000 ML IV SCH (02:45)
[2017-01-15] MEDS ORDERED: Sodium Chloride 0.9% W/ 20 mEq KCl/LITER 1,000 ML IV ONE (02:48)
[2017-01-15] MEDS ORDERED: BENADRYL 50 MG/ML ONE ×2 (02:48→05:05)
[2017-01-15 04:45] LABS: ANION GAP 15.7 MEQ/L (5-15); BLOOD UREA NITROGEN 7 mg/dL (9-20); CHLORIDE 105 mEq/L (98-107); Carbon Dioxide 25.5 mEq/L (21-32); Glucose 100 MG/DL (70-110); MAGNESIUM 1.9 mg/dL (1.8-2.4); Potassium 3.6 mEq/L (3.5-5.1); SODIUM 143 mEq/L (136-145)
[2017-01-15 04:54] VITALS: PULSE 86
[2017-01-15 05:32] VITALS: BP 138/78; O2SAT 97
--- NOTE | 2017-01-15 09:06 | XRAY ---
Indication: Abdomen pain. Comparison: KUB December 03, 2016. 2 views of the abdomen again nonacute and nonobstructed with stable left renal micro-calculi and right pelvic phlebolith. Remaining solid organs and osseous structures unremarkable. Single frontal chest demonstrates normal heart, lungs, and bony thorax. Impression: Stable left renal micro-calculi. CT renal stone study may yield further information if there remains further clinical concern. Normal 1 view chest.
== END 2017-01-15 05:32 | disposition home or self-care (01) ==
LOC: ED 00:39
DX: R19.7 Diarrhea, unspecified (principal); R10.32 Left lower quadrant pain; R11.2 Nausea with vomiting, unspecified; E87.6 Hypokalemia; E83.42 Hypomagnesemia; R50.9 Fever, unspecified; R61 Generalized hyperhidrosis
CPT/HCPCS: 36000; 36415; 74022; 80048; 80053; 81000; 82150; 83690; 83735; 84484; 85025; 85652; 86308; 87040; 87070; 87086; 87430; 93005; 96360; 96374; 96375; 99284; J1170; J1200; J2550; J3475

== ENCOUNTER 2017-01-22 22:53 | Emergency (ER) | payer OTHER ==
--- NOTE | 2017-01-22 23:10 | ERPHSYRPT ---
- History of Present Illness Time Seen by Provider: 01/22/17 23:01 Historian: patient Physician History: 31 y/o male comes back to the ER with complaints of LLQ abdominal pain for the past month. Pt describes the pain as sharp, constant, 9/10 and not relieved by norco. Pt also admits to multiple episodes of nausea, vomiting and diarrhea. Pt denies any fever, chills, bloody stools or urinary symptoms. Of note, pt has been to this ER twice before with similar complaints with negative CT scan abd/ pelvis and negative abdominal US. Pt says he is waiting for a call from the GI doctor for a colonoscopy. Timing/Duration: day(s) Activities at Onset: none Quality: sharpness Abdominal Pain Onset Location: LLQ Pain Radiation: no radiation Severity of Pain-Max: severe Severity of Pain-Current: severe Modifying Factors: Improves With: nothing Associated Symptoms: diarrhea, nausea, vomiting, No fever/chills, No loss of appetite Previous symptoms: same symptoms as today Allergies/Adverse Reactions: ketorolac tromethamine [From Toradol] Allergy (Verified 01/22/17 23:25) Itching shrimp Allergy (Verified 01/22/17 23:25) Home Medications: Escitalopram Oxalate [Lexapro] 1 tab PO DAILY 02/25/16 [History] Esomeprazole Magnesium [Nexium] 40 mg PO DAILY 02/25/16 [History] Lorazepam 0.5 mg [Ativan 0.5 MG] 1 mg PO TID PRN 02/25/16 [History] Temazepam [Restoril] 30 mg PO DAILY PRN 02/25/16 [History] Testosterone [Androgel] 150 gm IM WEEKLY 02/25/16 [History] Hx Tetanus, Diphtheria Vaccination/Date Given: Yes Hx Influenza Vaccination/Date Given: Yes Hx Pneumococcal Vaccination/Date Given: No - Review of Systems Constitutional: No Fever, No Chills Eyes: No Symptoms Ears, Nose, & Throat: No Symptoms Respiratory: No Cough, No Dyspnea Cardiac: No Chest Pain, No Edema, No Syncope Abdominal/Gastrointestinal: Abdominal Pain, Nausea, Vomiting, Diarrhea Genitourinary Symptoms: No Dysuria Musculoskeletal: No Back Pain, No Neck Pain Skin: No Rash Neurological: No Dizziness, No Focal Weakness, No Sensory Changes Psychological: No Symptoms Endocrine: No Symptoms All Other Systems: Reviewed and Negative - Past Medical History Pertinent Past Medical History: Yes Neurological History: Migraines ENT History: No Pertinent History Cardiac History: No Pertinent History Respiratory History: No Pertinent History Endocrine Medical History: No Pertinent History Musculoskeletal History: No Pertinent History GI Medical History: GERD History: Other Psycho-Social History: Anxiety Male Reproductive Disorders: No Pertinent History Other Medical History: Kallmann's Disease - frequent kidney stones - Past Surgical History Past Surgical History: Yes Neuro Surgical History: No Pertinent History Cardiac: No Pertinent History Respiratory: No Pertinent History Gastrointestinal: No Pertinent History Genitourinary: No Pertinent History Musculoskeletal: No Pertinent History Male Surgical History: No Pertinent History Other Surgical History: nephrolithiasis removal - egd - colonoscopy wilsdom teeth removed -lipoma removed from back - Social History Smoking Status: Never smoker Exposure to second hand smoke: No Drug Use: none Patient Lives Alone: No - Nursing Vital Signs Nursing Vital Signs: Initial Vital Signs Temperature 100.6 F 01/22/17 23:11 Pulse Rate 103 H 01/22/17 23:11 Respiratory Rate 18 01/22/17 23:11 Blood Pressure 167/107 01/22/17 23:11 O2 Sat by Pulse Oximetry 96 01/22/17 23:11 Pain Scale Pain Intensity 6 - Physical Exam General Appearance: no apparent distress, alert Eye Exam: PERRL/EOMI, eyes nml inspection Ears, Nose, Throat Exam: normal ENT inspection, pharynx normal, moist mucous membranes Neck Exam: normal inspection, non-tender, supple, full range of motion Respiratory Exam: normal breath sounds, lungs clear, No respiratory distress Cardiovascular Exam: regular rate/rhythm, normal heart sounds Gastrointestinal/Abdomen Exam: soft, normal bowel sounds, tenderness, No distention, No mass, No guarding Back Exam: normal inspection, normal range of motion, No CVA tenderness, No vertebral tenderness Extremity Exam: normal inspection, normal range of motion, pelvis stable Neurologic Exam: alert, oriented x 3, cooperative, normal mood/affect, nml cerebellar function, sensation nml, No motor deficits Skin Exam: normal color, warm, dry - Course Nursing assessment & vital signs reviewed: Yes Ordered Tests: Active Orders 24 hr Category Date Time Status IV Insertion STAT Care 01/22/17 23:11 Active AMYLASE Stat Lab 01/22/17 23:20 Completed CBC W DIFF Stat Lab 01/22/17 23:20 Completed CMP Stat Lab 01/22/17 23:20 Completed CULTURE,URINE Stat Lab 01/22/17 23:20 Received LIPASE Stat Lab 01/22/17 23:20 Completed UA W/ MICROSCOPIC Stat Lab 01/22/17 23:20 Completed Medication Summary Generic Name Dose Route Start Last Admin Trade Name Miguel A PRN Reason Stop Dose Admin Sodium Chloride 1,000 mls @ 999 mls/hr 01/22/17 23:11 01/22/17 23:41 Sodium Chloride 0.9% 1000 Ml IV 01/23/17 00:11 999 mls/hr .Q1H1M STA Administration Discontinued Medications Generic Name Dose Route Start Last Admin Trade Name Freq PRN Reason Stop Dose Admin Sodium Chloride Confirm 01/22/17 23:38 Sodium Chloride 0.9% 1000 Ml Administered 01/22/17 23:39 Dose 1,000 mls @ ud .ROUTE .STK-MED ONE Morphine Sulfate 4 mg 01/22/17 23:11 01/22/17 23:42 Morphine Sulfate 4 Mg Inj IV 01/22/17 23:12 4 mg STAT ONE Administration Morphine Sulfate Confirm 01/22/17 23:38 Morphine Sulfate 4 Mg Inj Administered 01/22/17 23:39 Dose 4 mg .ROUTE .STK-MED ONE Ondansetron HCl 4 mg 01/22/17 23:11 01/22/17 23:43 Zofran 4 Mg/2 Ml Vial IV 01/22/17 23:12 4 mg STAT ONE Administration Ondansetron HCl Confirm 01/22/17 23:38 Zofran 4 Mg/2 Ml Vial Administered 01/22/17 23:39 Dose 4 mg .ROUTE .STK-MED ONE Lab/Rad Data: Laboratory Result Diagrams 01/22/17 23:20 01/22/17 23:20 Laboratory Results 01/22/17 01/22/17 01/22/17 Range/Units 23:20 23:20 23:20 WBC 9.9 (4.0-10.5) K/mm3 RBC 5.64 H (4.1-5.6) M/mm3 Hgb 15.9 (12.5-18.0) gm/dl Hct 47.9 (42-50) % MCV 84.9 (78-100) fl MCH 28.1 (26-32) pg MCHC 33.2 (32-36) g/dl RDW 13.4 (11.5-14.0) % Plt Count 271 (150-450) K/mm3 MPV 9.2 (6-9.5) fl Gran % 69.6 H (36.0-66.0) % Lymphocytes % 21.1 L (24.0-44.0) % Monocytes % 8.0 (0.0-12.0) % Eosinophils % 1.1 (0.00-5.0) % Basophils % 0.2 (0.0-0.4) % Basophils # 0.02 (0-0.4) Sodium 142 (136-145) mEq/L Potassium 3.7 (3.5-5.1) mEq/L Chloride 104 (98-107) mEq/L Carbon Dioxide 26.3 (21-32) mEq/L Anion Gap 15.3 H (5-15) MEQ/L BUN 13 (9-20) mg/dL Creatinine 1.33 H (0.55-1.30) mg/dl Estimated GFR > 60 ML/MIN Glucose 109 (70-110) MG/DL Calcium 9.5 (8.5-10.1) mg/dL Total Bilirubin 0.30 (0.2-1.0) mg/dL AST 32 (15-37) U/L ALT 71 (12-78) U/L Alkaline Phosphatase 83 (46-116) U/L Serum Total Protein 7.7 (6.4-8.2) gm/dL Albumin 4.1 (3.4-5.0) g/dL Amylase 73 (25-115) U/L Lipase 172 (73-393) U/L Ur Collection Type CLEAN CATCH Urine Color YELLOW (YELLOW) Urine Appearance SLIGHTLY CLOUDY (CLEAR) Urine pH 7.0 (5-6) Ur Specific [place] 1.015 (1.005-1.025) Urine Protein TRACE (Negative) Urine Ketones NEGATIVE (NEGATIVE) Urine Blood 250 (0-5) Romario/ul Urine Nitrite NEGATIVE (NEGATIVE) Urine Bilirubin NEGATIVE (NEGATIVE) Urine Urobilinogen NORMAL (0-1) mg/dL Ur Leukocyte Esterase NEGATIVE (NEGATIVE) Urine Microscopic RBC 50-100 (0-2) /HPF Urine Microscopic WBC 0-2 (0-5) /HPF Ur Epithelial Cells RARE (FEW) /HPF Urine Bacteria RARE (NEGATIVE) /HPF Urine Glucose NEGATIVE (NEGATIVE) mg/dL Specimen Received 01/22/17 8857 - Progress Progress: unchanged, improved Progress Note: 01/23/17 00:01 Pt says his pain is the same after receiving morphine. Pt is resting comfortably. The labs are within normal limits. No indication for imaging since the patient had an US abdomen and a CT scan abd/pelvis that were both negative. I have encouraged the patient to F/U with his PCP for a referral to GI for a colonoscopy. - Departure Time of Disposition: 00:03 Departure Disposition: Home Clinical Impression: Abdominal pain Qualifiers: Abdominal location: left lower quadrant Qualified Code(s): R10.32 - Left lower quadrant pain Condition: Stable Critical Care Time: No Referrals: RASHI ALVARADO JR [Primary Care Provider] - Instructions: Abdominal Pain-Adult Additional Instructions: Follow up with your PCP regarding a referral to a GI doctor.
[2017-01-22] MEDS ORDERED: Sodium Chloride 0.9% 1000 ML 1,000 ML IV STA (23:11)
[2017-01-22] MEDS ORDERED: Zofran 4 MG/2 ML VIAL IV ONE (23:11)
[2017-01-22] MEDS ORDERED: MORPHINE SULFATE 4 MG INJ IV ONE (23:11)
[2017-01-22 23:27] VITALS: O2SAT 96
[2017-01-22 23:27] LABS: BASOPHIL % 0.2 % (0.0-0.4); Eosinophil % 1.1 % (0.00-5.0); Granulocytes % 69.6 % (36.0-66.0); Lymphocytes % 21.1 % (24.0-44.0); Mean Cell Volume 84.9 fl (78-100); Mean Platelet Volume 9.2 fl (6-9.5); Platelet Count 271 K/mm3 (150-450); Red Blood Count 5.64 M/mm3 (4.1-5.6); Red Cell Distribution Width 13.4 % (11.5-14.0); White Blood Count 9.9 K/mm3 (4.0-10.5)
[2017-01-22 23:28] LABS: Mean Corpuscular Hemoglobin 28.1 pg (26-32)
[2017-01-22 23:31] LABS: Bilirubin NEGATIVE (NEGATIVE); Blood 250 Ery/ul (0-5); COMPLETE URINE MICROSCOPIC? YES; Collection Type CLEAN CATCH; Glucose NEGATIVE (NEGATIVE); Leukocyte Esterase NEGATIVE (NEGATIVE)
[2017-01-22] MEDS ORDERED: Zofran 4 MG/2 ML VIAL ONE (23:38)
[2017-01-22] MEDS ORDERED: Sodium Chloride 0.9% 1000 ML 1,000 ML ONE (23:38)
[2017-01-22] MEDS ORDERED: MORPHINE SULFATE 4 MG INJ ONE (23:38)
[2017-01-22 23:43] LABS: ADD URINE CULTURE? YES (NO); Bacteria RARE /HPF (NEGATIVE); Epithelial Cells RARE /HPF (FEW); WBC 0-2 /HPF (0-5)
[2017-01-22 23:48] LABS: ALBUMIN 4.1 g/dL (3.4-5.0); ALKALINE PHOSPHATASE 83 U/L (46-116); ANION GAP 15.3 MEQ/L (5-15); BLOOD UREA NITROGEN 13 mg/dL (9-20); CHLORIDE 104 mEq/L (98-107); Carbon Dioxide 26.3 mEq/L (21-32); Glucose 109 MG/DL (70-110); LIPASE 172 U/L (73-393); Potassium 3.7 mEq/L (3.5-5.1); SGOT/AST 32 U/L (15-37); SGPT/ALT 71 U/L (12-78); SODIUM 142 mEq/L (136-145); Total Protein 7.7 gm/dL (6.4-8.2)
[2017-01-23 00:16] VITALS: BP 149/96; PULSE 95
== END 2017-01-23 00:16 | disposition home or self-care (01) ==
LOC: ED 22:53
DX: R10.32 Left lower quadrant pain (principal); R11.2 Nausea with vomiting, unspecified; R19.7 Diarrhea, unspecified; Z79.899 Other long term (current) drug therapy
CPT/HCPCS: 36000; 36415; 80053; 81000; 82150; 83690; 85025; 87086; 96360; 96374; 96375; 99284; J2270; J2405

== ENCOUNTER 2017-01-30 03:35 | Emergency (ER) | payer OTHER ==
[2017-01-30] MEDS ORDERED: Hydromorphone 1 mg/ml Ampule IV ONE ×2 (04:17→06:52)
[2017-01-30] MEDS ORDERED: Phenergan 25 MG INJ IV ONE (04:17)
[2017-01-30] MEDS ORDERED: Sodium Chloride 0.9% 1000 ML 1,000 ML IV STA ×2 (04:17→05:51)
[2017-01-30] MEDS ORDERED: Pepcid 20 MG VIAL IV ONE ×2 (04:17→04:23)
--- NOTE | 2017-01-30 04:17 | ERPHSYRPT ---
- History of Present Illness Time Seen by Provider: 01/30/17 04:01 Historian: patient Exam Limitations: no limitations Physician History: The patient is a 31-year-old male with his complaining of 2 days of worsening right upper quadrant abdominal pain radiating through to his back. He 's had nausea and vomiting as well. He hasn't eaten in about 18 hours. His mother told him it was his gallbladder so he wanted to be seen. He says everyone related to his grandmother's had their gallbladder removed. He's had a recent two-month history of left lower abdominal pain for which he has been to this ER 6 times. A recent abdominal pelvic CT scan on January 12 showed bilateral micro-calculus in the kidneys but no obstruction. An abdominal renal ultrasound on 01/11 was normal. Today he took 2 [place] was with minimal relief. He denies fever or chills. His past medical history is significant for ureterolithiasis, low testosterone, GERD, anxiety, migraine headaches. Timing/Duration: day(s) (2), sudden, worse Activities at Onset: none Quality: aching, sharpness Abdominal Pain Onset Location: RUQ Pain Radiation: back Severity of Pain-Max: moderate Severity of Pain-Current: moderate Modifying Factors: Improves With: analgesics, eating Associated Symptoms: nausea, vomiting Previous symptoms: different symptoms, recently seen Allergies/Adverse Reactions: ketorolac tromethamine [From Toradol] Allergy (Verified 01/30/17 04:07) Itching shrimp Allergy (Verified 01/30/17 04:07) Home Medications: Escitalopram Oxalate [Lexapro] 1 tab PO DAILY 02/25/16 [History] Esomeprazole Magnesium [Nexium] 40 mg PO DAILY 02/25/16 [History] Lorazepam 0.5 mg [Ativan 0.5 MG] 1 mg PO TID PRN 02/25/16 [History] Temazepam [Restoril] 30 mg PO DAILY PRN 02/25/16 [History] Testosterone [Androgel] 150 gm IM WEEKLY 02/25/16 [History] Hx Tetanus, Diphtheria Vaccination/Date Given: Yes Hx Influenza Vaccination/Date Given: Yes Hx Pneumococcal Vaccination/Date Given: No - Review of Systems Constitutional: No Fever, No Chills Eyes: No Symptoms Ears, Nose, & Throat: No Symptoms Respiratory: No Cough, No Dyspnea Cardiac: No Chest Pain, No Edema, No Syncope Abdominal/Gastrointestinal: Abdominal Pain, Nausea, Vomiting Genitourinary Symptoms: No Dysuria Musculoskeletal: No Back Pain, No Neck Pain Skin: No Rash Neurological: No Dizziness, No Focal Weakness, No Sensory Changes Psychological: No Symptoms Endocrine: No Symptoms Hematologic/Lymphatic: No Symptoms Immunological/Allergic: No Symptoms All Other Systems: Reviewed and Negative - Past Medical History Pertinent Past Medical History: Yes Neurological History: Migraines ENT History: No Pertinent History Cardiac History: No Pertinent History Respiratory History: No Pertinent History Endocrine Medical History: No Pertinent History Musculoskeletal History: No Pertinent History GI Medical History: GERD History: Other Psycho-Social History: Anxiety Male Reproductive Disorders: No Pertinent History Other Medical History: Kallmann's Disease - frequent kidney stones - Past Surgical History Past Surgical History: Yes Neuro Surgical History: No Pertinent History Cardiac: No Pertinent History Respiratory: No Pertinent History Gastrointestinal: No Pertinent History Genitourinary: No Pertinent History Musculoskeletal: No Pertinent History Male Surgical History: No Pertinent History Other Surgical History: nephrolithiasis removal - egd - colonoscopy wilsdom teeth removed -lipoma removed from back - Social History Smoking Status: Never smoker Exposure to second hand smoke: No Drug Use: none Patient Lives Alone: No - Nursing Vital Signs Nursing Vital Signs: Initial Vital Signs Pulse Rate 112 H 01/30/17 03:54 Respiratory Rate 22 01/30/17 03:54 Blood Pressure 148/104 01/30/17 03:54 O2 Sat by Pulse Oximetry 97 01/30/17 03:54 Pain Scale Pain Intensity 9 - Physical Exam General Appearance: no apparent distress, alert Eye Exam: PERRL/EOMI Ears, Nose, Throat Exam: normal ENT inspection, pharynx normal, moist mucous membranes Neck Exam: normal inspection, non-tender, supple, full range of motion Respiratory Exam: normal breath sounds, lungs clear, No respiratory distress Cardiovascular Exam: regular rate/rhythm, normal heart sounds Gastrointestinal/Abdomen Exam: tenderness (RUQ) Rectal Exam: not done Back Exam: normal inspection, normal range of motion, No CVA tenderness, No vertebral tenderness Extremity Exam: normal inspection, normal range of motion, pelvis stable Neurologic Exam: alert, oriented x 3, cooperative, normal mood/affect, nml cerebellar function, sensation nml, No motor deficits Skin Exam: normal color, warm, dry SpO2 Interpretation: normal SpO2: 97 Oxygen Delivery: Room Air - Radiology Exams Abdomen X-ray Interpretation: Interpreted by me, Other (neg single view chest, tiny radiopaque particles over bilateral kidneys.) - CT Exams Abdomen/Pelvis CT Interpretation: Negative, Tele-radiologist Report, Other (Abdomen and pelvis CT scan shows a minimally prominent gallbladder. Bladder wall thickening. Small nonobstructing bilateral renal calculi. No hydronephrosis.Per Dr May.) Ordered Tests: Active Orders 24 hr Category Date Time Status IV Insertion STAT Care 01/30/17 04:17 Active ABDOMEN AND PELVIS W/0 CONTRAS [CT] Stat Exams 01/30/17 05:44 Taken OBSTR/ACUTE ABDOMEN SERIES Stat Exams 01/30/17 04:18 Taken CBC W DIFF Stat Lab 01/30/17 04:18 Completed CMP Stat Lab 01/30/17 04:18 Completed CULTURE,URINE Stat Lab 01/30/17 04:15 Received LIPASE Stat Lab 01/30/17 04:18 Completed Lactic Acid Stat Lab 01/30/17 04:30 Completed Lactic Acid Stat Lab 01/30/17 06:35 Ordered UA W/ MICROSCOPIC Stat Lab 01/30/17 04:15 Completed Urine Triage Profile Stat Lab 01/30/17 04:15 Completed Medication Summary Generic Name Dose Route Start Last Admin Trade Name Freq PRN Reason Stop Dose Admin Sodium Chloride 1,000 mls @ 999 mls/hr 01/30/17 05:51 01/30/17 05:57 Sodium Chloride 0.9% 1000 Ml IV 01/30/17 06:51 999 mls/hr .Q1H1M STA Administration Discontinued Medications Generic Name Dose Route Start Last Admin Trade Name Freq PRN Reason Stop Dose Admin Famotidine 20 mg 01/30/17 04:17 01/30/17 04:28 Pepcid 20 Mg Vial IV 01/30/17 04:18 20 mg STAT ONE Administration Famotidine Confirm 01/30/17 04:23 Pepcid 20 Mg Vial Administered 01/30/17 04:24 Dose 20 mg IV .STK-MED ONE Hydromorphone HCl 1 mg 01/30/17 04:17 01/30/17 04:29 Hydromorphone 1 Mg/Ml Ampule IV 01/30/17 04:18 1 mg STAT ONE Administration Hydromorphone HCl Confirm 01/30/17 04:24 Hydromorphone 1 Mg/Ml Ampule Administered 01/30/17 04:25 Dose 1 mg .ROUTE .STK-MED ONE Sodium Chloride 1,000 mls @ 999 mls/hr 01/30/17 04:17 01/30/17 04:26 Sodium Chloride 0.9% 1000 Ml IV 01/30/17 05:17 999 mls/hr .Q1H1M STA Administration Sodium Chloride Confirm 01/30/17 04:24 Sodium Chloride 0.9% 1000 Ml Administered 01/30/17 04:25 Dose 1,000 mls @ ud .ROUTE .STK-MED ONE Sodium Chloride Confirm 01/30/17 05:56 Sodium Chloride 0.9% 1000 Ml Administered 01/30/17 05:57 Dose 1,000 mls @ ud .ROUTE .STK-MED ONE Potassium Chloride 20 meq 01/30/17 06:32 Klor Con 10 Meq PO 01/30/17 06:33 STAT ONE Promethazine HCl 25 mg 01/30/17 04:17 01/30/17 04:29 Phenergan 25 Mg Inj IV 01/30/17 04:18 25 mg STAT ONE Administration Promethazine HCl Confirm 01/30/17 04:23 Phenergan 25 Mg Inj Administered 01/30/17 04:24 Dose 25 mg .ROUTE .STK-MED ONE Tamsulosin HCl 0.4 mg 01/30/17 05:43 01/30/17 05:47 Flomax 0.4 Mg PO 01/30/17 05:44 0.4 mg HS STA Administration Tamsulosin HCl Confirm 01/30/17 05:47 Flomax 0.4 Mg Administered 01/30/17 05:48 Dose 0.4 mg .ROUTE .STK-MED ONE Lab/Rad Data: Laboratory Result Diagrams 01/30/17 04:18 01/30/17 04:18 Laboratory Results 01/30/17 01/30/17 01/30/17 Range/Units 04:30 04:18 04:18 WBC 9.0 (4.0-10.5) K/mm3 RBC 5.95 H (4.1-5.6) M/mm3 Hgb 16.8 (12.5-18.0) gm/dl Hct 50.6 H (42-50) % MCV 85.0 (78-100) fl MCH 28.2 (26-32) pg MCHC 33.2 (32-36) g/dl RDW 13.6 (11.5-14.0) % Plt Count 277 (150-450) K/mm3 MPV 9.5 (6-9.5) fl Gran % 64.8 (36.0-66.0) % Lymphocytes % 25.4 (24.0-44.0) % Monocytes % 8.6 (0.0-12.0) % Eosinophils % 1.0 (0.00-5.0) % Basophils % 0.2 (0.0-0.4) % Basophils # 0.02 (0-0.4) Sodium 144 (136-145) mEq/L Potassium 3.3 L (3.5-5.1) mEq/L Chloride 104 (98-107) mEq/L Carbon Dioxide 29.2 (21-32) mEq/L Anion Gap 14.0 (5-15) MEQ/L BUN 5 L (9-20) mg/dL Creatinine 1.12 (0.55-1.30) mg/dl Estimated GFR > 60 ML/MIN Glucose 84 (70-110) MG/DL Lactic Acid 2.5 H (0.4-2.0) Calcium 9.1 (8.5-10.1) mg/dL Total Bilirubin 0.30 (0.2-1.0) mg/dL AST 20 (15-37) U/L ALT 55 (12-78) U/L Alkaline Phosphatase 71 (46-116) U/L Serum Total Protein 6.8 (6.4-8.2) gm/dL Albumin 3.9 (3.4-5.0) g/dL Lipase 148 (73-393) U/L Ur Collection Type Urine Color (YELLOW) Urine Appearance (CLEAR) Urine pH (5-6) Ur Specific [place] (1.005-1.025) Urine Protein (Negative) Urine Ketones (NEGATIVE) Urine Blood (0-5) Romario/ul Urine Nitrite (NEGATIVE) Urine Bilirubin (NEGATIVE) Urine Urobilinogen (0-1) mg/dL Ur Leukocyte Esterase (NEGATIVE) Urine Microscopic RBC (0-2) /HPF Urine Microscopic WBC (0-5) /HPF Ur Epithelial Cells (FEW) /HPF Urine Bacteria (NEGATIVE) /HPF Urine Mucus (NEGATIVE) /HPF Urine Glucose (NEGATIVE) mg/dL Urine Opiates Level (NEGATIVE) Ur Methadone (NEGATIVE) Urine Barbiturates (NEGATIVE) Ur Phencyclidine (PCP) (NEGATIVE) Urine Amphetamine (NEGATIVE) U Benzodiazepine Level (NEGATIVE) Urine Cocaine (NEGATIVE) Urine Marijuana (THC) (NEGATIVE) Specimen Received 01/30/17 01/30/17 Range/Units 04:15 04:15 WBC (4.0-10.5) K/mm3 RBC (4.1-5.6) M/mm3 Hgb (12.5-18.0) gm/dl Hct (42-50) % MCV (78-100) fl MCH (26-32) pg MCHC (32-36) g/dl RDW (11.5-14.0) % Plt Count (150-450) K/mm3 MPV (6-9.5) fl Gran % (36.0-66.0) % Lymphocytes % (24.0-44.0) % Monocytes % (0.0-12.0) % Eosinophils % (0.00-5.0) % Basophils % (0.0-0.4) % Basophils # (0-0.4) Sodium (136-145) mEq/L Potassium (3.5-5.1) mEq/L Chloride (98-107) mEq/L Carbon Dioxide (21-32) mEq/L Anion Gap (5-15) MEQ/L BUN (9-20) mg/dL Creatinine (0.55-1.30) mg/dl Estimated GFR ML/MIN Glucose (70-110) MG/DL Lactic Acid (0.4-2.0) Calcium (8.5-10.1) mg/dL Total Bilirubin (0.2-1.0) mg/dL AST (15-37) U/L ALT (12-78) U/L Alkaline Phosphatase (46-116) U/L Serum Total Protein (6.4-8.2) gm/dL Albumin (3.4-5.0) g/dL Lipase (73-393) U/L Ur Collection Type CLEAN CATCH Urine Color [place] (YELLOW) Urine Appearance SLIGHTLY CLOUDY (CLEAR) Urine pH 6.0 (5-6) Ur Specific [place] 1.020 (1.005-1.025) Urine Protein TRACE (Negative) Urine Ketones NEGATIVE (NEGATIVE) Urine Blood 250 (0-5) Romario/ul Urine Nitrite NEGATIVE (NEGATIVE) Urine Bilirubin NEGATIVE (NEGATIVE) Urine Urobilinogen NORMAL (0-1) mg/dL Ur Leukocyte Esterase NEGATIVE (NEGATIVE) Urine Microscopic RBC >100 (0-2) /HPF Urine Microscopic WBC 0-2 (0-5) /HPF Ur Epithelial Cells FEW (FEW) /HPF Urine Bacteria FEW (NEGATIVE) /HPF Urine Mucus SLIGHT (NEGATIVE) /HPF Urine Glucose NEGATIVE (NEGATIVE) mg/dL Urine Opiates Level POS. (NEGATIVE) Ur Methadone NEG. (NEGATIVE) Urine Barbiturates NEG. (NEGATIVE) Ur Phencyclidine (PCP) NEG. (NEGATIVE) Urine Amphetamine NEG. (NEGATIVE) U Benzodiazepine Level NEG. (NEGATIVE) Urine Cocaine NEG. (NEGATIVE) Urine Marijuana (THC) NEG. (NEGATIVE) Specimen Received 01/30/17:420 - Progress Progress: improved Counseled pt/family regarding: lab results, diagnosis, need for follow-up, rad results - Departure Time of Disposition: 06:42 Departure Disposition: Home Clinical Impression: Abdominal pain, Vomiting, Hematuria, Hypokalemia Condition: Stable Critical Care Time: No Referrals: RASHI ALVARADO JR [Primary Care Provider] - Additional Instructions: You have abdominal pain, vomiting, hematuria, and hypokalemia. You were given Dilaudid 1.5 mg, Phenergan 25 mg, Benadryl 25 mg, and fluids by IV in the ER. You were also given Flomax 0.4 mg and potassium [address] scan of your abdomen did not show any kidney stones that were moving. Follow-up as scheduled for further evaluation of the chronic abdominal pain that you have been having for 2 months. You were given a work excuse for today.
[2017-01-30] MEDS ORDERED: Phenergan 25 MG INJ ONE (04:23)
[2017-01-30] MEDS ORDERED: Hydromorphone 1 mg/ml Ampule ONE ×3 (04:24→07:01)
[2017-01-30] MEDS ORDERED: Sodium Chloride 0.9% 1000 ML 1,000 ML ONE ×2 (04:24→05:56)
[2017-01-30 04:30] LABS: BASOPHIL % 0.2 % (0.0-0.4); Granulocytes % 64.8 % (36.0-66.0); Lymphocytes % 25.4 % (24.0-44.0); Mean Corpuscular Hemoglobin 28.2 pg (26-32); Mean Platelet Volume 9.5 fl (6-9.5); Monocytes % 8.6 % (0.0-12.0); Platelet Count 277 K/mm3 (150-450); Red Blood Count 5.95 M/mm3 (4.1-5.6); Red Cell Distribution Width 13.6 % (11.5-14.0)
[2017-01-30 04:35] LABS: Lactic Acid 2.5 (0.4-2.0)
[2017-01-30 04:43] LABS: ADD URINE CULTURE? YES (NO); Bilirubin NEGATIVE (NEGATIVE); Blood 250 Ery/ul (0-5); COMPLETE URINE MICROSCOPIC? YES; Collection Type CLEAN CATCH; Glucose NEGATIVE (NEGATIVE); Leukocyte Esterase NEGATIVE (NEGATIVE)
[2017-01-30 04:44] LABS: Bacteria FEW /HPF (NEGATIVE); Epithelial Cells FEW /HPF (FEW); Mucus SLIGHT /HPF (NEGATIVE); WBC 0-2 /HPF (0-5)
[2017-01-30 04:45] LABS: ALBUMIN 3.9 g/dL (3.4-5.0); ALKALINE PHOSPHATASE 71 U/L (46-116); BLOOD UREA NITROGEN 5 mg/dL (9-20); CHLORIDE 104 mEq/L (98-107); Carbon Dioxide 29.2 mEq/L (21-32); Glucose 84 MG/DL (70-110); LIPASE 148 U/L (73-393); Potassium 3.3 mEq/L (3.5-5.1); SGOT/AST 20 U/L (15-37); SGPT/ALT 55 U/L (12-78); SODIUM 144 mEq/L (136-145); Total Protein 6.8 gm/dL (6.4-8.2)
[2017-01-30] MEDS ORDERED: Flomax 0.4 MG PO STA (05:43)
[2017-01-30] MEDS ORDERED: Flomax 0.4 MG ONE (05:47)
[2017-01-30] MEDS ORDERED: Klor Con 10 MEQ PO ONE (06:32)
[2017-01-30 06:47] VITALS: O2SAT 97
[2017-01-30] MEDS ORDERED: BENADRYL 50 MG/ML IV ONE (06:52)
[2017-01-30] MEDS ORDERED: BENADRYL 50 MG/ML ONE (06:56)
[2017-01-30 07:35] VITALS: BP 140/93; PULSE 90
--- NOTE | 2017-01-30 09:10 | XRAY ---
Indication: Right upper quadrant pain. Nephrolithiasis. Multiple contiguous axial images obtained through the abdomen and pelvis without contrast as ordered. Comparison: January 12, 2017. Lung bases demonstrates mild bibasilar dependent atelectasis. Heart is not enlarged. Stable nonobstructing bilateral renal micro-calculi, bilateral renal cysts, and tiny right adrenal adenoma. Again splenomegaly today measuring 16 cm in greatest axial dimension. Noncontrasted stomach and bowel loops appear nonobstructed. Stable minimal scattered diverticulosis without diverticulitis. Normal appendix. No free fluid/air. Remaining liver, gallbladder, pancreas, spleen, adrenal glands, kidneys, ureters, bladder, and aorta appear unremarkable for noncontrast exam. Osseous structures intact. Impression: 1. Stable nonobstructing bilateral micro-calculi, bilateral renal cysts, right adrenal adenoma, splenomegaly, and colonic diverticulosis. 2. No new/acute intra-abdominal/pelvic abnormalities on this noncontrast exam. Comment: Preliminary interpretation was made by C. No critical discrepancy. CTDI 23.68
--- NOTE | 2017-01-30 09:13 | XRAY ---
Indication: Right upper quadrant pain. Comparison: January 15, 2017. 2 view abdomen again nonacute and nonobstructed with stable left renal micro-calculus. Remaining solid organs and osseous structures unremarkable. Single PA chest again demonstrates normal heart, lungs, and bony thorax. Impression: Stable nonacute abdomen with left renal micro-calculus. Stable normal 1 view chest.
== END 2017-01-30 07:35 | disposition home or self-care (01) ==
LOC: ED 03:35
DX: R10.11 Right upper quadrant pain (principal); R11.10 Vomiting, unspecified; R31.9 Hematuria, unspecified; E87.6 Hypokalemia
CPT/HCPCS: 36000; 36415; 74022; 74176; 80053; 80307; 81000; 83605; 83690; 85025; 87086; 96360; 96361; 96374; 96375; 99284; J1170; J1200; J2550; A9270-GY

== ENCOUNTER 2017-02-12 15:20 | Emergency (ER) | payer SELFPAY ==
[2017-02-12 15:34] VITALS: O2SAT 97
[2017-02-12] MEDS ORDERED: Sodium Chloride 0.9% 1000 ML 1,000 ML IV STA (16:07)
[2017-02-12] MEDS ORDERED: PROTONIX 40 MG IV IV ONE ×2 (16:07→16:17)
[2017-02-12] MEDS ORDERED: Zofran 4 MG/2 ML VIAL IV ONE (16:14)
--- NOTE | 2017-02-12 16:14 | ERPHSYRPT ---
- History of Present Illness Time Seen by Provider: 02/12/17 16:00 Historian: patient Exam Limitations: clinical condition Patient Subjective Stated Complaint: having stomach issues and vomitting and nausea for a month getting scope on friday but ssaid abdominal pain got bad today.patient states hes seen blood in his vomitt Triage Nursing Assessment: pt alert nad orientedx3, gait steady , ambulates well , skin warm dry and intact, lung sounds clear, bowel sounds x4, pulses present bilateral radius and pedal. Physician History: PATIENT WITH HISTORY OF CHRONIC ABDOMINAL PAIN FOR 5 MONTHS AND KIDNEY STONES, SCHEDULED OF ENDOSCOPY IN 1 WEEK HAD EMESIS TODAY WITH STREAKS OF BLOOD. DENIES URINARY SYMPTOMS, FLANK PAIN, FEVER OR DIARRHEA. STATES HE IS OUT OF HIS [place]. Timing/Duration: today Activities at Onset: none Quality: cramping Abdominal Pain Onset Location: RUQ, suprapubic Pain Radiation: no radiation Severity of Pain-Max: moderate Modifying Factors: Improves With: nothing Associated Symptoms: vomiting Previous symptoms: same symptoms as today Allergies/Adverse Reactions: ketorolac tromethamine [From Toradol] Allergy (Verified 01/30/17 04:07) Itching shrimp Allergy (Verified 01/30/17 04:07) Home Medications: Escitalopram Oxalate [Lexapro] 1 tab PO DAILY 02/25/16 [History] Esomeprazole Magnesium [Nexium] 40 mg PO DAILY 02/25/16 [History] Lorazepam 0.5 mg [Ativan 0.5 MG] 1 mg PO TID PRN 02/25/16 [History] Temazepam [Restoril] 30 mg PO DAILY PRN 02/25/16 [History] Testosterone [Androgel] 150 gm IM WEEKLY 02/25/16 [History] Hx Tetanus, Diphtheria Vaccination/Date Given: Yes Hx Influenza Vaccination/Date Given: No Hx Pneumococcal Vaccination/Date Given: No Immunizations Up to Date: Yes - Review of Systems Constitutional: No Fever, No Chills Eyes: No Symptoms Ears, Nose, & Throat: No Symptoms Respiratory: No Cough, No Dyspnea Cardiac: No Chest Pain, No Edema, No Syncope Abdominal/Gastrointestinal: Abdominal Pain, Nausea, Vomiting, Hematemesis, No Diarrhea Genitourinary Symptoms: No Symptoms, No Dysuria Musculoskeletal: No Symptoms, No Back Pain, No Neck Pain Skin: No Rash Neurological: No Symptoms, No Dizziness, No Focal Weakness, No Sensory Changes Psychological: No Symptoms Endocrine: No Symptoms All Other Systems: Reviewed and Negative - Past Medical History Pertinent Past Medical History: Yes Neurological History: Migraines ENT History: No Pertinent History Cardiac History: No Pertinent History Respiratory History: No Pertinent History Endocrine Medical History: No Pertinent History Musculoskeletal History: No Pertinent History GI Medical History: GERD History: Other Psycho-Social History: Anxiety Male Reproductive Disorders: No Pertinent History Other Medical History: Kallmann's Disease - frequent kidney stones - Past Surgical History Past Surgical History: Yes Neuro Surgical History: No Pertinent History Cardiac: No Pertinent History Respiratory: No Pertinent History Gastrointestinal: No Pertinent History Genitourinary: No Pertinent History Musculoskeletal: No Pertinent History Male Surgical History: No Pertinent History Other Surgical History: nephrolithiasis removal - egd - colonoscopy wilsdom teeth removed -lipoma removed from back - Social History Smoking Status: Never smoker Exposure to second hand smoke: No Drug Use: none Patient Lives Alone: No - Nursing Vital Signs Nursing Vital Signs: Initial Vital Signs Temperature 99.1 F 02/12/17 15:21 Pulse Rate 99 H 02/12/17 15:21 Respiratory Rate 20 02/12/17 15:21 Blood Pressure 154/97 02/12/17 15:21 O2 Sat by Pulse Oximetry 97 02/12/17 15:21 Pain Scale Pain Intensity 9 - Physical Exam General Appearance: no apparent distress, alert Eye Exam: PERRL/EOMI, eyes nml inspection Ears, Nose, Throat Exam: normal ENT inspection, pharynx normal, moist mucous membranes Neck Exam: normal inspection, non-tender, supple, full range of motion Respiratory Exam: normal breath sounds, lungs clear, No respiratory distress Cardiovascular Exam: regular rate/rhythm, normal heart sounds Gastrointestinal/Abdomen Exam: soft, normal bowel sounds, tenderness (MINIMAL TENDERNESS, PERIUMBILICAL WITHOUT GUARDING), No mass Back Exam: normal inspection, normal range of motion, No CVA tenderness, No vertebral tenderness Extremity Exam: normal inspection, normal range of motion, pelvis stable Neurologic Exam: alert, oriented x 3, cooperative, normal mood/affect, nml cerebellar function, sensation nml, No motor deficits Skin Exam: normal color, warm, dry SpO2 Interpretation: normal SpO2: 97 Oxygen Delivery: Room Air Ordered Tests: Active Orders 24 hr Category Date Time Status Clean Catch Urine Specimen STAT Care 02/12/17 16:41 Active IV Insertion STAT Care 02/12/17 16:07 Active Orthostatic Vital Signs STAT Care 02/12/17 16:06 Active AMYLASE Stat Lab 02/12/17 16:00 Completed BMP Stat Lab 02/12/17 16:00 Completed CBC W DIFF Stat Lab 02/12/17 16:00 Completed LIPASE Stat Lab 02/12/17 16:00 Completed UA W/RFX UR CULTURE Stat Lab 02/12/17 16:30 Completed Urine Triage Profile Stat Lab 02/12/17 16:30 Completed Medication Summary Discontinued Medications Generic Name Dose Route Start Last Admin Trade Name Freq PRN Reason Stop Dose Admin Acetaminophen 650 mg 02/12/17 16:45 02/12/17 17:07 Tylenol 325 Mg PO 02/12/17 16:46 650 mg STAT STA Administration Acetaminophen Confirm 02/12/17 17:07 Tylenol 325 Mg Administered 02/12/17 17:08 Dose 650 mg .ROUTE .STK-MED ONE Diphenhydramine HCl 50 mg 02/12/17 17:14 02/12/17 17:16 Benadryl 50 Mg/Ml IV 02/12/17 17:15 50 mg STAT ONE Administration Diphenhydramine HCl Confirm 02/12/17 17:16 Benadryl 50 Mg/Ml Administered 02/12/17 17:17 Dose 50 mg .ROUTE .STK-MED ONE Sodium Chloride 1,000 mls @ 999 mls/hr 02/12/17 16:07 02/12/17 16:18 Sodium Chloride 0.9% 1000 Ml IV 02/12/17 17:07 999 mls/hr .Q1H1M STA Administration Sodium Chloride Confirm 02/12/17 16:17 Sodium Chloride 0.9% 1000 Ml Administered 02/12/17 16:18 Dose 1,000 mls @ ud .ROUTE .STK-MED ONE Methylprednisolone Sodium Succinate 125 mg 02/12/17 17:14 02/12/17 17:16 Solu-Medrol 125 Mg IV 02/12/17 17:15 125 mg STAT ONE Administration Methylprednisolone Sodium Succinate Confirm 02/12/17 17:16 Solu-Medrol 125 Mg Administered 02/12/17 17:17 Dose 125 mg .ROUTE .STK-MED ONE Ondansetron HCl 4 mg 02/12/17 16:14 02/12/17 16:18 Zofran 4 Mg/2 Ml Vial IV 02/12/17 16:15 4 mg STAT ONE Administration Ondansetron HCl Confirm 02/12/17 16:17 Zofran 4 Mg/2 Ml Vial Administered 02/12/17 16:18 Dose 4 mg .ROUTE .STK-MED ONE Pantoprazole Sodium 40 mg 02/12/17 16:07 02/12/17 16:18 Protonix 40 Mg Iv IV 02/12/17 16:08 40 mg STAT ONE Administration Pantoprazole Sodium Confirm 02/12/17 16:17 Protonix 40 Mg Iv Administered 02/12/17 16:18 Dose 40 mg IV .STK-MED ONE Lab/Rad Data: Laboratory Result Diagrams 02/12/17 16:00 02/12/17 16:00 Laboratory Results 02/12/17 02/12/17 02/12/17 Range/Units 16:30 16:30 16:00 WBC (4.0-10.5) K/mm3 RBC (4.1-5.6) M/mm3 Hgb (12.5-18.0) gm/dl Hct (42-50) % MCV (78-100) fl MCH (26-32) pg MCHC (32-36) g/dl RDW (11.5-14.0) % Plt Count (150-450) K/mm3 MPV (6-9.5) fl Gran % (36.0-66.0) % Lymphocytes % (24.0-44.0) % Monocytes % (0.0-12.0) % Eosinophils % (0.00-5.0) % Basophils % (0.0-0.4) % Basophils # (0-0.4) Sodium 143 (136-145) mEq/L Potassium 4.0 (3.5-5.1) mEq/L Chloride 106 (98-107) mEq/L Carbon Dioxide 27.4 (21-32) mEq/L Anion Gap 13.5 (5-15) MEQ/L BUN 5 L (9-20) mg/dL Creatinine 1.05 (0.55-1.30) mg/dl Estimated GFR > 60 ML/MIN Glucose 94 (70-110) MG/DL Calcium 9.3 (8.5-10.1) mg/dL Amylase 83 (25-115) U/L Lipase 237 (73-393) U/L Ur Collection Type CLEAN CATCH Urine Color YELLOW (YELLOW) Urine Appearance CLEAR (CLEAR) Urine pH 6.0 (5-6) Ur Specific [place] 1.020 (1.005-1.025) Urine Protein NEGATIVE (Negative) Urine Ketones NEGATIVE (NEGATIVE) Urine Blood NEGATIVE (0-5) Romario/ul Urine Nitrite NEGATIVE (NEGATIVE) Urine Bilirubin NEGATIVE (NEGATIVE) Urine Urobilinogen NORMAL (0-1) mg/dL Ur Leukocyte Esterase NEGATIVE (NEGATIVE) Urine Glucose NEGATIVE (NEGATIVE) mg/dL Urine Opiates Level NEG. (NEGATIVE) Ur Methadone NEG. (NEGATIVE) Urine Barbiturates NEG. (NEGATIVE) Ur Phencyclidine (PCP) NEG. (NEGATIVE) Urine Amphetamine NEG. (NEGATIVE) U Benzodiazepine Level NEG. (NEGATIVE) Urine Cocaine NEG. (NEGATIVE) Urine Marijuana (THC) NEG. (NEGATIVE) Specimen Received 02/12/17 1630 02/12/17 Range/Units 16:00 WBC 7.4 (4.0-10.5) K/mm3 RBC 5.82 H (4.1-5.6) M/mm3 Hgb 16.3 (12.5-18.0) gm/dl Hct 49.3 (42-50) % MCV 84.7 (78-100) fl MCH 28.0 (26-32) pg MCHC 33.1 (32-36) g/dl RDW 13.4 (11.5-14.0) % Plt Count 239 (150-450) K/mm3 MPV 10.1 H (6-9.5) fl Gran % 75.6 H (36.0-66.0) % Lymphocytes % 16.5 L (24.0-44.0) % Monocytes % 6.9 (0.0-12.0) % Eosinophils % 0.7 (0.00-5.0) % Basophils % 0.3 (0.0-0.4) % Basophils # 0.02 (0-0.4) Sodium (136-145) mEq/L Potassium (3.5-5.1) mEq/L Chloride (98-107) mEq/L Carbon Dioxide (21-32) mEq/L Anion Gap (5-15) MEQ/L BUN (9-20) mg/dL Creatinine (0.55-1.30) mg/dl Estimated GFR ML/MIN Glucose (70-110) MG/DL Calcium (8.5-10.1) mg/dL Amylase (25-115) U/L Lipase (73-393) U/L Ur Collection Type Urine Color (YELLOW) Urine Appearance (CLEAR) Urine pH (5-6) Ur Specific [place] (1.005-1.025) Urine Protein (Negative) Urine Ketones (NEGATIVE) Urine Blood (0-5) Romario/ul Urine Nitrite (NEGATIVE) Urine Bilirubin (NEGATIVE) Urine Urobilinogen (0-1) mg/dL Ur Leukocyte Esterase (NEGATIVE) Urine Glucose (NEGATIVE) mg/dL Urine Opiates Level (NEGATIVE) Ur Methadone (NEGATIVE) Urine Barbiturates (NEGATIVE) Ur Phencyclidine (PCP) (NEGATIVE) Urine Amphetamine (NEGATIVE) U Benzodiazepine Level (NEGATIVE) Urine Cocaine (NEGATIVE) Urine Marijuana (THC) (NEGATIVE) Specimen Received - Progress Progress: improved Progress Note: 02/12/17 17:57 PATIENT APPEARS IN TO NO DISTRESS, PATIENT HAS HAS RENAL CT SCANS ON 11/10/16, , 01/12/17, AND 01/30/17 WHICH WERE ALL CONSISTENT WITH STABLE NONOBSTRUCTING BILATERAL MICRO-CALCULI AND BILATERAL RENAL CYST 02/12/17 18:01 ADMINISTERED ZOFRAN 4MG, PROTONIX 40MG, PATIENT THEN DEVELOPED ITCHING, ADMINISTERED IV NORMAL SALINE 1 LITER OVER 1 HOUR, BENADRYL 50MG, SOLUMEDROL 125MG IV Counseled pt/family regarding: lab results, diagnosis, need for follow-up - Departure Time of Disposition: 18:10 Departure Disposition: Home Clinical Impression: ACUTE GASTRITIS, ALLERGIC REACTION Condition: Stable Critical Care Time: No Referrals: RASHI ALVARADO JR [Primary Care Provider] - Additional Instructions: TAKE OVER THE COUNTER BENADRYL 50MG EVERY 4 HOURS FOR ITCHING. PREDNISONE 20MG , 2 TABLETS DAILY FOR 4 DAYS. CONTINUE NEXIUM PRESCRIBED. FOLLOWUP WITH YOUR FAMILY PHYSICIAN FOR PAIN MEDICATIONS. Prescriptions: Prednisone 20 mg [Deltasone 20 mg] 2 tablet PO DAILY #8 tablet
[2017-02-12] MEDS ORDERED: Sodium Chloride 0.9% 1000 ML 1,000 ML ONE (16:17)
[2017-02-12] MEDS ORDERED: Zofran 4 MG/2 ML VIAL ONE (16:17)
[2017-02-12 16:40] LABS: BASOPHIL % 0.3 % (0.0-0.4); Eosinophil % 0.7 % (0.00-5.0); Granulocytes % 75.6 % (36.0-66.0); Lymphocytes % 16.5 % (24.0-44.0); Mean Cell Volume 84.7 fl (78-100); Mean Platelet Volume 10.1 fl (6-9.5); Monocytes % 6.9 % (0.0-12.0); Platelet Count 239 K/mm3 (150-450); Red Blood Count 5.82 M/mm3 (4.1-5.6); Red Cell Distribution Width 13.4 % (11.5-14.0); White Blood Count 7.4 K/mm3 (4.0-10.5)
[2017-02-12] MEDS ORDERED: TYLENOL 325 MG PO STA (16:45)
[2017-02-12 16:49] LABS: ADD URINE CULTURE? NO (NO); Bilirubin NEGATIVE (NEGATIVE); Blood NEGATIVE Ery/ul (0-5); COMPLETE URINE MICROSCOPIC? NO; Collection Type CLEAN CATCH; Glucose NEGATIVE (NEGATIVE); Leukocyte Esterase NEGATIVE (NEGATIVE)
[2017-02-12 16:55] LABS: ANION GAP 13.5 MEQ/L (5-15); BLOOD UREA NITROGEN 5 mg/dL (9-20); CHLORIDE 106 mEq/L (98-107); Carbon Dioxide 27.4 mEq/L (21-32); Glucose 94 MG/DL (70-110); LIPASE 237 U/L (73-393); SODIUM 143 mEq/L (136-145)
[2017-02-12] MEDS ORDERED: TYLENOL 325 MG ONE (17:07)
[2017-02-12] MEDS ORDERED: solu-MEDROL 125 MG IV ONE (17:14)
[2017-02-12] MEDS ORDERED: BENADRYL 50 MG/ML IV ONE (17:14)
[2017-02-12] MEDS ORDERED: solu-MEDROL 125 MG ONE (17:16)
[2017-02-12] MEDS ORDERED: BENADRYL 50 MG/ML ONE (17:16)
[2017-02-12 18:03] VITALS: BP 159/74; PULSE 79
== END 2017-02-12 18:16 | disposition home or self-care (01) ==
LOC: ED 15:20
DX: K29.00 Acute gastritis without bleeding (principal); T78.40XA Allergy, unspecified, initial encounter; R10.9 Unspecified abdominal pain; R11.2 Nausea with vomiting, unspecified; K92.0 Hematemesis; K21.9 Gastro-esophageal reflux disease without esophagitis
CPT/HCPCS: 36000; 36415; 80048; 80307; 81002; 82150; 83690; 85025; 96360; 99284; J1200; J2405; J2930; A9270-GY

== ENCOUNTER 2017-02-19 01:55 | Emergency (ER) | payer SELFPAY ==
[2017-02-19] MEDS ORDERED: Phenergan 25 MG INJ IV ONE (02:23)
[2017-02-19] MEDS ORDERED: Sodium Chloride 0.9% 1000 ML 1,000 ML IV STA (02:23)
[2017-02-19] MEDS ORDERED: Hydromorphone 1 mg/ml Ampule IV ONE (02:23)
--- NOTE | 2017-02-19 02:31 | ERPHSYRPT ---
- History of Present Illness Time Seen by Provider: 02/19/17 02:20 Historian: patient Exam Limitations: no limitations Patient Subjective Stated Complaint: pain with nausea and vomiting starting at about 2300 tonight.. had scopes done today for persistant abdominal pain. had polyps removed. Triage Nursing Assessment: alert and oriented. c/o mid abdominal pain since around 2300. sttates ate buffalo wings at 2100. nausea and vomiting. vomited clear on arrival. abdom soft and tender on palpation above umbical area. + BS in all 4 quads. denies diarrhea. denies urinary symptoms. denies fever. Physician History: YESTERDAY PT HAD A COLONOSCOPY AND EGD BY DR REILLY WHO REMOVED POLYPS. IN THE PAST 2.5 HOURS PT HAS HAD SHARP/BURNING LLQ ABDOMINAL PAIN, DIAPHORESIS AND VOMITING X6 WITHOUT BLOOD. PT DENIES CHEST PAIN, SHORTNESS OF AIR, FEVER; ADMITS TO RASH ON CHEST. LAST BM WAS ABOUT 7 HOURS AGO AND DIARRHEAL. Allergies/Adverse Reactions: ketorolac tromethamine [From Toradol] Allergy (Verified 02/19/17 02:15) Itching shrimp Allergy (Verified 02/19/17 02:15) Home Medications: Escitalopram Oxalate [Lexapro] 1 tab PO DAILY 02/25/16 [History] Esomeprazole Magnesium [Nexium] 40 mg PO DAILY 02/25/16 [History] Lorazepam 0.5 mg [Ativan 0.5 MG] 1 mg PO TID PRN 02/25/16 [History] Temazepam [Restoril] 30 mg PO DAILY PRN 02/25/16 [History] Testosterone [Androgel] 150 gm IM WEEKLY 02/25/16 [History] Hx Tetanus, Diphtheria Vaccination/Date Given: Yes Hx Influenza Vaccination/Date Given: No Hx Pneumococcal Vaccination/Date Given: No Immunizations Up to Date: Yes - Review of Systems Respiratory: No Dyspnea Cardiac: No Chest Pain Abdominal/Gastrointestinal: Abdominal Pain, Vomiting, Diarrhea Skin: Rash All Other Systems: Reviewed and Negative - Past Medical History Pertinent Past Medical History: Yes Neurological History: Migraines ENT History: No Pertinent History Cardiac History: No Pertinent History Respiratory History: No Pertinent History Endocrine Medical History: No Pertinent History Musculoskeletal History: No Pertinent History GI Medical History: GERD History: Renal Disease Psycho-Social History: Anxiety, Depression Male Reproductive Disorders: No Pertinent History Other Medical History: Kallmann's Disease - frequent kidney stones - Past Surgical History Past Surgical History: Yes Neuro Surgical History: No Pertinent History Cardiac: No Pertinent History Respiratory: No Pertinent History Gastrointestinal: No Pertinent History Genitourinary: Kidney Surgery Musculoskeletal: No Pertinent History Male Surgical History: No Pertinent History Other Surgical History: nephrolithiasis removal - egd - colonoscopy wilsdom teeth removed -lipoma removed from back - Social History Smoking Status: Never smoker Exposure to second hand smoke: No Drug Use: none Patient Lives Alone: No - Nursing Vital Signs Nursing Vital Signs: Initial Vital Signs Temperature 98.0 F 02/19/17 01:58 Pulse Rate 110 H 02/19/17 01:58 Respiratory Rate 20 02/19/17 01:58 Blood Pressure 172/113 02/19/17 01:58 O2 Sat by Pulse Oximetry 97 02/19/17 01:58 Pain Scale Pain Intensity 3 - Physical Exam General Appearance: alert Eye Exam: PERRL/EOMI Ears, Nose, Throat Exam: TMs normal, pharynx normal, moist mucous membranes Neck Exam: normal inspection Respiratory Exam: lungs clear Cardiovascular Exam: normal heart sounds Gastrointestinal/Abdomen Exam: soft, normal bowel sounds, tenderness (MILD LLQ ABDOMINAL TENDERNESS) Back Exam: normal range of motion Extremity Exam: normal inspection, No pedal edema Neurologic Exam: alert, cooperative Skin Exam: rash (MACULAR ERYTHEMA ON CHEST) SpO2 Interpretation: normal SpO2: 97 Oxygen Delivery: Room Air - Course Nursing assessment & vital signs reviewed: Yes - CT Exams Abdomen/Pelvis CT Interpretation: Tele-radiologist Report (NO ACUTE FINDINGS. NO OBSTRUCTION OR FREE AIR. NONOBSTRUCTING NEPHROLITHIASIS, BILATERAL. THERE HAS BEEN NO INTERVAL CHANGE FROM THE PREVIOUS STUDY ON 01/30/17.) Ordered Tests: Active Orders 24 hr Category Date Time Status Clean Catch Urine Specimen STAT Care 02/19/17 02:23 Active IV Insertion STAT Care 02/19/17 02:23 Active ABDOMEN AND PELVIS W/0 CONTRAS [CT] Stat Exams 02/19/17 02:24 Taken AMYLASE Stat Lab 02/19/17 02:41 Completed CBC W DIFF Stat Lab 02/19/17 02:41 Completed CMP Stat Lab 02/19/17 02:41 Completed LIPASE Stat Lab 02/19/17 02:41 Completed MAG [MAGNESIUM] Stat Lab 02/19/17 02:41 Completed UA W/ MICROSCOPIC Stat Lab 02/19/17 03:28 Completed Medication Summary Discontinued Medications Generic Name Dose Route Start Last Admin Trade Name Miguel A PRN Reason Stop Dose Admin Diphenhydramine HCl 25 mg 02/19/17 03:47 02/19/17 03:59 Benadryl 50 Mg/Ml IV 02/19/17 03:48 25 mg STAT ONE Administration Diphenhydramine HCl Confirm 02/19/17 03:52 Benadryl 50 Mg/Ml Administered 02/19/17 03:53 Dose 50 mg .ROUTE .STK-MED ONE Fentanyl Citrate 50 mcg 02/19/17 03:47 02/19/17 03:59 Sublimaze 100 Mcg/2 Ml IV 02/19/17 03:48 50 mcg STAT ONE Administration Fentanyl Citrate Confirm 02/19/17 03:53 Sublimaze 100 Mcg/2 Ml Administered 02/19/17 03:54 Dose 100 mcg .ROUTE .STK-MED ONE Hydromorphone HCl 1 mg 02/19/17 02:23 02/19/17 02:42 Hydromorphone 1 Mg/Ml Ampule IV 02/19/17 02:24 1 mg STAT ONE Administration Hydromorphone HCl Confirm 02/19/17 02:38 Hydromorphone 1 Mg/Ml Ampule Administered 02/19/17 02:39 Dose 1 mg .ROUTE .STK-MED ONE Sodium Chloride 1,000 mls @ 999 mls/hr 02/19/17 02:23 02/19/17 02:42 Sodium Chloride 0.9% 1000 Ml IV 02/19/17 03:23 999 mls/hr .Q1H1M STA Administration Sodium Chloride Confirm 02/19/17 02:38 Sodium Chloride 0.9% 1000 Ml Administered 02/19/17 02:39 Dose 1,000 mls @ ud .ROUTE .STK-MED ONE Ondansetron HCl 4 mg 02/19/17 03:47 02/19/17 04:00 Zofran 4 Mg/2 Ml Vial IV 02/19/17 03:48 4 mg STAT ONE Administration Ondansetron HCl Confirm 02/19/17 03:52 Zofran 4 Mg/2 Ml Vial Administered 02/19/17 03:53 Dose 4 mg .ROUTE .STK-MED ONE Promethazine HCl 12.5 mg 02/19/17 02:23 02/19/17 02:42 Phenergan 25 Mg Inj IV 02/19/17 02:24 12.5 mg STAT ONE Administration Promethazine HCl Confirm 02/19/17 02:38 Phenergan 25 Mg Inj Administered 02/19/17 02:39 Dose 25 mg .ROUTE .STK-MED ONE Lab/Rad Data: Laboratory Result Diagrams 02/19/17 02:41 02/19/17 02:41 Laboratory Results 02/19/17 02/19/17 02/19/17 Range/Units 03:28 02:41 02:41 WBC (4.0-10.5) K/mm3 RBC (4.1-5.6) M/mm3 Hgb (12.5-18.0) gm/dl Hct (42-50) % MCV (78-100) fl MCH (26-32) pg MCHC (32-36) g/dl RDW (11.5-14.0) % Plt Count (150-450) K/mm3 MPV (6-9.5) fl Gran % (36.0-66.0) % Lymphocytes % (24.0-44.0) % Monocytes % (0.0-12.0) % Eosinophils % (0.00-5.0) % Basophils % (0.0-0.4) % Basophils # (0-0.4) Sodium 144 (136-145) mEq/L Potassium 3.8 (3.5-5.1) mEq/L Chloride 107 (98-107) mEq/L Carbon Dioxide 28.1 (21-32) mEq/L Anion Gap 12.5 (5-15) MEQ/L BUN 6 L (9-20) mg/dL Creatinine 0.94 (0.55-1.30) mg/dl Estimated GFR > 60 ML/MIN Glucose 90 (70-110) MG/DL Calcium 8.6 (8.5-10.1) mg/dL Magnesium 1.8 (1.8-2.4) mg/dL Total Bilirubin 0.20 (0.2-1.0) mg/dL AST 24 (15-37) U/L ALT 58 (12-78) U/L Alkaline Phosphatase 69 (46-116) U/L Serum Total Protein 6.4 (6.4-8.2) gm/dL Albumin 3.5 (3.4-5.0) g/dL Amylase 83 (25-115) U/L Lipase 226 (73-393) U/L Ur Collection Type VOID Urine Color YELLOW (YELLOW) Urine Appearance CLEAR (CLEAR) Urine pH 8.0 (5-6) Ur Specific [place] 1.010 (1.005-1.025) Urine Protein TRACE (Negative) Urine Ketones NEGATIVE (NEGATIVE) Urine Blood NEGATIVE (0-5) Romario/ul Urine Nitrite NEGATIVE (NEGATIVE) Urine Bilirubin NEGATIVE (NEGATIVE) Urine Urobilinogen NORMAL (0-1) mg/dL Ur Leukocyte Esterase NEGATIVE (NEGATIVE) Urine Microscopic RBC 0-2 (0-2) /HPF Urine Microscopic WBC 0-2 (0-5) /HPF Ur Epithelial Cells FEW (FEW) /HPF Urine Bacteria FEW (NEGATIVE) /HPF Urine Glucose NEGATIVE (NEGATIVE) mg/dL Specimen Received 02/19/17 0330 02/19/17 Range/Units 02:41 WBC 7.2 (4.0-10.5) K/mm3 RBC 5.63 H (4.1-5.6) M/mm3 Hgb 15.8 (12.5-18.0) gm/dl Hct 47.6 (42-50) % MCV 84.5 (78-100) fl MCH 28.0 (26-32) pg MCHC 33.2 (32-36) g/dl RDW 13.0 (11.5-14.0) % Plt Count 216 (150-450) K/mm3 MPV 9.9 H (6-9.5) fl Gran % 65.0 (36.0-66.0) % Lymphocytes % 23.2 L (24.0-44.0) % Monocytes % 10.4 (0.0-12.0) % Eosinophils % 1.1 (0.00-5.0) % Basophils % 0.3 (0.0-0.4) % Basophils # 0.02 (0-0.4) Sodium (136-145) mEq/L Potassium (3.5-5.1) mEq/L Chloride (98-107) mEq/L Carbon Dioxide (21-32) mEq/L Anion Gap (5-15) MEQ/L BUN (9-20) mg/dL Creatinine (0.55-1.30) mg/dl Estimated GFR ML/MIN Glucose (70-110) MG/DL Calcium (8.5-10.1) mg/dL Magnesium (1.8-2.4) mg/dL Total Bilirubin (0.2-1.0) mg/dL AST (15-37) U/L ALT (12-78) U/L Alkaline Phosphatase (46-116) U/L Serum Total Protein (6.4-8.2) gm/dL Albumin (3.4-5.0) g/dL Amylase (25-115) U/L Lipase (73-393) U/L Ur Collection Type Urine Color (YELLOW) Urine Appearance (CLEAR) Urine pH (5-6) Ur Specific [place] (1.005-1.025) Urine Protein (Negative) Urine Ketones (NEGATIVE) Urine Blood (0-5) Romario/ul Urine Nitrite (NEGATIVE) Urine Bilirubin (NEGATIVE) Urine Urobilinogen (0-1) mg/dL Ur Leukocyte Esterase (NEGATIVE) Urine Microscopic RBC (0-2) /HPF Urine Microscopic WBC (0-5) /HPF Ur Epithelial Cells (FEW) /HPF Urine Bacteria (NEGATIVE) /HPF Urine Glucose (NEGATIVE) mg/dL Specimen Received - Departure Time of Disposition: 04:29 Departure Disposition: Home Clinical Impression: ABDOMINAL PAIN, VOMITING, ANXIETY, DEPRESSION, GERD Condition: Stable Critical Care Time: No Referrals: RASHI ALVARADO JR [Primary Care Provider] - Instructions: Abdominal Pain-Adult Additional Instructions: FOLLOW UP WITH PRIVATE DOCTOR TOMORROW. Prescriptions: Promethazine HCl 25 mg [Phenergan 25 mg] 25 mg PO Q4H PRN PRN #14 tablet PRN Reason: Nausea/Vomiting
[2017-02-19] MEDS ORDERED: Phenergan 25 MG INJ ONE (02:38)
[2017-02-19] MEDS ORDERED: Sodium Chloride 0.9% 1000 ML 1,000 ML ONE (02:38)
[2017-02-19] MEDS ORDERED: Hydromorphone 1 mg/ml Ampule ONE (02:38)
[2017-02-19 02:45] LABS: BASOPHIL % 0.3 % (0.0-0.4); Eosinophil % 1.1 % (0.00-5.0); Lymphocytes % 23.2 % (24.0-44.0); Mean Cell Volume 84.5 fl (78-100); Mean Platelet Volume 9.9 fl (6-9.5); Monocytes % 10.4 % (0.0-12.0); Platelet Count 216 K/mm3 (150-450); Red Blood Count 5.63 M/mm3 (4.1-5.6); White Blood Count 7.2 K/mm3 (4.0-10.5)
[2017-02-19 03:09] LABS: ALBUMIN 3.5 g/dL (3.4-5.0); ALKALINE PHOSPHATASE 69 U/L (46-116); ANION GAP 12.5 MEQ/L (5-15); BLOOD UREA NITROGEN 6 mg/dL (9-20); CHLORIDE 107 mEq/L (98-107); Carbon Dioxide 28.1 mEq/L (21-32); Glucose 90 MG/DL (70-110); LIPASE 226 U/L (73-393); Potassium 3.8 mEq/L (3.5-5.1); SGOT/AST 24 U/L (15-37); SGPT/ALT 58 U/L (12-78); SODIUM 144 mEq/L (136-145); Total Protein 6.4 gm/dL (6.4-8.2)
[2017-02-19 03:38] LABS: ADD URINE CULTURE? NO (NO); Bacteria FEW /HPF (NEGATIVE); Bilirubin NEGATIVE (NEGATIVE); Blood NEGATIVE Ery/ul (0-5); COMPLETE URINE MICROSCOPIC? YES; Collection Type VOID; Epithelial Cells FEW /HPF (FEW); Glucose NEGATIVE (NEGATIVE); Leukocyte Esterase NEGATIVE (NEGATIVE); WBC 0-2 /HPF (0-5)
[2017-02-19] MEDS ORDERED: Zofran 4 MG/2 ML VIAL IV ONE (03:47)
[2017-02-19] MEDS ORDERED: SUBLIMAZE 100 MCG/2 ML IV ONE (03:47)
[2017-02-19] MEDS ORDERED: BENADRYL 50 MG/ML IV ONE ×2 (03:47→04:32)
[2017-02-19] MEDS ORDERED: BENADRYL 50 MG/ML ONE ×2 (03:52→04:34)
[2017-02-19] MEDS ORDERED: Zofran 4 MG/2 ML VIAL ONE (03:52)
[2017-02-19] MEDS ORDERED: SUBLIMAZE 100 MCG/2 ML ONE (03:53)
[2017-02-19 04:29] VITALS: O2SAT 97
[2017-02-19 05:01] VITALS: BP 136/90; PULSE 80
--- NOTE | 2017-02-19 21:31 | XRAY ---
Exam: CT of the abdomen and pelvis without IV contrast from 02/19/2017. CTDI: 28.13 Comparison: CT of the abdomen and pelvis without IV contrast from 01/30/2017. Indication: 31-year-old male with left lower quadrant abdominal pain with vomiting 4 hours, EGD and colonoscopy was performed on 02/18/2017, history of GERD and renal stones. Technique: Non-IV contrast axial images were obtained through the abdomen and pelvis. Reconstructed coronal and sagittal images were created and reviewed. Findings: The lung bases reveal minimal posterior dependent atelectatic changes. Otherwise, the lung bases appear clear. Some air is seen within the distal esophageal lumen. Assessment of the solid organs is limited without the use of IV contrast. The liver is of normal size. No intrahepatic biliary duct distention is seen. The gallbladder is distended and reveals no dense calcifications within it. The spleen appears slightly enlarged measuring 14.3 cm in greatest craniocaudal dimension on coronal image #104. This is similar to the prior study. The pancreas appears unremarkable. The adrenal glands are remarkable for a 1 cm in diameter right adrenal adenoma representing no change. The kidneys reveal multiple bilateral nonobstructing small stones, the largest measuring 6 mm in diameter overlying the upper pole of the left kidney and the next largest measuring 5 mm in diameter overlying the lower pole of the left kidney. This is unchanged from the prior CT study from 01/30/2017. I see no hydronephrosis. There appears to be a 2.1 cm in diameter cyst within the lower pole of the right kidney representing no change. No free intraperitoneal air is seen. The abdominal aorta is of normal diameter. No abnormal retroperitoneal lymphadenopathy is seen. No ventral abdominal wall hernia is noted. There is no evidence of bowel distention or obstruction. There is no evidence of appendicitis within the right lower quadrant. Some scattered stool is seen throughout the colon. Minimal descending and sigmoid colon diverticulosis without evidence of acute diverticulitis is seen. The urinary bladder is partially distended and appears unremarkable. No enlarged pelvic lymph nodes are seen. No free intraperitoneal fluid is seen. The seminal vesicles and prostate gland appear unremarkable. The skeleton reveals no acute fracture or suspicious bone lesion. Impression: 1. I see no evidence of bowel obstruction, free air, or free fluid. No other acute findings are seen within the abdomen or pelvis. 2. Stable bilateral nonobstructing nephrolithiasis, small cyst within lower pole of right kidney, minimal splenomegaly, and a 1 cm in diameter right adrenal gland adenoma are again seen. 3. I believe there is some minimal descending and sigmoid colon diverticulosis without evidence of acute diverticulitis.
== END 2017-02-19 05:01 | disposition home or self-care (01) ==
LOC: ED 01:55
DX: R10.9 Unspecified abdominal pain (principal); F41.9 Anxiety disorder, unspecified; F32.9 Major depressive disorder, single episode, unspecified; K21.9 Gastro-esophageal reflux disease without esophagitis; R11.2 Nausea with vomiting, unspecified
CPT/HCPCS: 36000; 36415; 74176; 80053; 81000; 82150; 83690; 83735; 85025; 96374; 96375; 96376; 99285; J1170; J1200; J2405; J2550; J3010

== ENCOUNTER 2017-03-02 06:44 | Emergency (ER) | payer SELFPAY ==
[2017-03-02] MEDS ORDERED: Sodium Chloride 0.9% 1000 ML 1,000 ML IV STA (07:19)
[2017-03-02] MEDS ORDERED: Zofran 4 MG/2 ML VIAL IV ONE (07:19)
[2017-03-02] MEDS ORDERED: Hydromorphone 1 mg/ml Ampule IV ONE ×2 (07:19→08:45)
[2017-03-02] MEDS ORDERED: Phenergan 25 MG INJ IV ONE (07:19)
--- NOTE | 2017-03-02 07:19 | ERPHSYRPT ---
- History of Present Illness Time Seen by Provider: 03/02/17 07:09 Historian: patient Patient Subjective Stated Complaint: pt states he woke up around 0300 with lt back and abd pain radiating into groin. Triage Nursing Assessment: pt alert and oriented, asnwers qeustions approp. pt ambulatory with steady gait noted. respirations nonlabored with lungs cta. skin pink warm and dry. abd soft and nontender. bowel sounds present in all 4 quads. no tenderness noted to lt back. Physician History: The patient is a 31-year-old male who comes in complaining of a sudden onset of left flank pain with radiation to his left abdomen and now down into his left groin. The onset was sudden at 3 AM. He has been vomiting. He has a history of kidney stones. He is unable to urinate at this time. He's had no abdominal surgeries. His past medical history significant for kidney stones, GERD, testosterone injections, and anxiety. Timing/Duration: today, hour(s) (4) Activities at Onset: sleep Quality: stabbing Severity of Pain-Max: severe Severity of Pain-Current: severe Modifying Factors: Improves With: vomiting Associated Symptoms: nausea, testicular pain, vomiting Previous symptoms: same symptoms as today Allergies/Adverse Reactions: ketorolac tromethamine [From Toradol] Allergy (Verified 03/02/17 07:11) Itching shrimp Allergy (Verified 03/02/17 07:11) Home Medications: Escitalopram Oxalate [Lexapro] 1 tab PO DAILY 02/25/16 [History] Esomeprazole Magnesium [Nexium] 40 mg PO DAILY 02/25/16 [History] Lorazepam 0.5 mg [Ativan 0.5 MG] 1 mg PO TID PRN 02/25/16 [History] Temazepam [Restoril] 30 mg PO DAILY PRN 02/25/16 [History] Testosterone [Androgel] 150 gm IM WEEKLY 02/25/16 [History] Hx Tetanus, Diphtheria Vaccination/Date Given: Yes Hx Influenza Vaccination/Date Given: No Hx Pneumococcal Vaccination/Date Given: No Immunizations Up to Date: Yes - Review of Systems Constitutional: No Fever, No Chills Eyes: No Symptoms Ears, Nose, & Throat: No Symptoms Respiratory: No Cough, No Dyspnea Cardiac: No Chest Pain, No Edema, No Syncope Abdominal/Gastrointestinal: Abdominal Pain, Nausea, Vomiting Genitourinary Symptoms: Urinary Retention, Flank Pain, No Dysuria Musculoskeletal: No Back Pain, No Neck Pain Skin: No Rash Neurological: No Symptoms Psychological: No Symptoms Endocrine: No Symptoms Hematologic/Lymphatic: No Symptoms Immunological/Allergic: No Symptoms All Other Systems: Reviewed and Negative - Past Medical History Pertinent Past Medical History: Yes Neurological History: Migraines ENT History: No Pertinent History Cardiac History: No Pertinent History Respiratory History: No Pertinent History Endocrine Medical History: No Pertinent History Musculoskeletal History: No Pertinent History GI Medical History: GERD History: Renal Disease Psycho-Social History: Anxiety, Depression Male Reproductive Disorders: No Pertinent History Other Medical History: Kallmann's Disease - frequent kidney stones. freq abd pain, n&v - Past Surgical History Past Surgical History: Yes Neuro Surgical History: No Pertinent History Cardiac: No Pertinent History Respiratory: No Pertinent History Gastrointestinal: No Pertinent History Genitourinary: Kidney Surgery Musculoskeletal: No Pertinent History Male Surgical History: No Pertinent History Other Surgical History: nephrolithiasis removal - egd - colonoscopy wilsdom teeth removed -lipoma removed from back - Social History Smoking Status: Never smoker Exposure to second hand smoke: No Drug Use: none Patient Lives Alone: No - Nursing Vital Signs Nursing Vital Signs: Initial Vital Signs Temperature 97.9 F 03/02/17 06:50 Pulse Rate 82 03/02/17 06:50 Respiratory Rate 20 03/02/17 06:50 Blood Pressure 174/100 03/02/17 06:50 O2 Sat by Pulse Oximetry 98 03/02/17 06:50 Pain Scale Pain Intensity 7 - Physical Exam General Appearance: moderate distress Eye Exam: PERRL/EOMI, eyes nml inspection Ears, Nose, Throat Exam: normal ENT inspection, pharynx normal, moist mucous membranes Neck Exam: normal inspection, non-tender, supple, full range of motion Respiratory Exam: normal breath sounds, lungs clear, No respiratory distress Cardiovascular Exam: regular rate/rhythm, normal heart sounds Gastrointestinal/Abdomen Exam: tenderness (LLQ) Rectal Exam: not done Back Exam: CVA tenderness (left) Extremity Exam: normal inspection, normal range of motion, pelvis stable Neurologic Exam: alert, oriented x 3, cooperative, normal mood/affect, nml cerebellar function, sensation nml, No motor deficits Skin Exam: normal color, warm, dry SpO2 Interpretation: normal SpO2: 98 Oxygen Delivery: Room Air - CT Exams Abdomen/Pelvis CT Interpretation: Tele-radiologist Report, Other (5 mm calculus in proximal left ureter with mild hydronephrosis per Dr Lange.) Ordered Tests: Active Orders 24 hr Category Date Time Status IV Insertion STAT Care 03/02/17 07:19 Active ABDOMEN AND PELVIS W/0 CONTRAS [CT] Stat Exams 03/02/17 07:22 Taken CBC W DIFF Stat Lab 03/02/17 07:20 Completed CMP Stat Lab 03/02/17 07:20 Completed CULTURE,URINE Stat Lab 03/02/17 08:09 Received LIPASE Stat Lab 03/02/17 07:20 Completed Lactic Acid Stat Lab 03/02/17 07:20 Results UA W/ MICROSCOPIC Stat Lab 03/02/17 08:09 Completed Medication Summary Discontinued Medications Generic Name Dose Route Start Last Admin Trade Name Freq PRN Reason Stop Dose Admin Hydromorphone HCl 1 mg 03/02/17 07:19 03/02/17 07:36 Hydromorphone 1 Mg/Ml Ampule IV 03/02/17 07:20 1 mg STAT ONE Administration Hydromorphone HCl Confirm 03/02/17 07:33 Hydromorphone 1 Mg/Ml Ampule Administered 03/02/17 07:34 Dose 1 mg .ROUTE .STK-MED ONE Sodium Chloride 1,000 mls @ 999 mls/hr 03/02/17 07:19 03/02/17 07:35 Sodium Chloride 0.9% 1000 Ml IV 03/02/17 08:19 999 mls/hr .Q1H1M STA Administration Sodium Chloride Confirm 03/02/17 07:33 Sodium Chloride 0.9% 1000 Ml Administered 03/02/17 07:34 Dose 1,000 mls @ ud .ROUTE .STK-MED ONE Ondansetron HCl 4 mg 03/02/17 07:19 03/02/17 07:36 Zofran 4 Mg/2 Ml Vial IV 03/02/17 07:20 4 mg STAT ONE Administration Ondansetron HCl Confirm 03/02/17 07:32 Zofran 4 Mg/2 Ml Vial Administered 03/02/17 07:33 Dose 4 mg .ROUTE .STK-MED ONE Promethazine HCl 25 mg 03/02/17 07:19 03/02/17 07:36 Phenergan 25 Mg Inj IV 03/02/17 07:20 25 mg STAT ONE Administration Promethazine HCl Confirm 03/02/17 07:33 Phenergan 25 Mg Inj Administered 03/02/17 07:34 Dose 25 mg .ROUTE .STK-MED ONE Tamsulosin HCl 0.4 mg 03/02/17 07:21 03/02/17 07:36 Flomax 0.4 Mg PO 03/02/17 07:22 0.4 mg DAILY STA Administration Tamsulosin HCl Confirm 03/02/17 07:33 Flomax 0.4 Mg Administered 03/02/17 07:34 Dose 0.4 mg .ROUTE .STK-MED ONE Lab/Rad Data: Laboratory Result Diagrams 03/02/17 07:20 03/02/17 07:20 Laboratory Results 03/02/17 03/02/17 03/02/17 Range/Units 08:09 07:20 07:20 WBC (4.0-10.5) K/mm3 RBC (4.1-5.6) M/mm3 Hgb (12.5-18.0) gm/dl Hct (42-50) % MCV (78-100) fl MCH (26-32) pg MCHC (32-36) g/dl RDW (11.5-14.0) % Plt Count (150-450) K/mm3 MPV (6-9.5) fl Gran % (36.0-66.0) % Lymphocytes % (24.0-44.0) % Monocytes % (0.0-12.0) % Eosinophils % (0.00-5.0) % Basophils % (0.0-0.4) % Basophils # (0-0.4) Sodium 143 (136-145) mEq/L Potassium 3.8 (3.5-5.1) mEq/L Chloride 105 (98-107) mEq/L Carbon Dioxide 28.3 (21-32) mEq/L Anion Gap 13.4 (5-15) MEQ/L BUN 6 L (9-20) mg/dL Creatinine 0.99 (0.55-1.30) mg/dl Estimated GFR > 60 ML/MIN Glucose 92 (70-110) MG/DL Lactic Acid 2.3 H (0.4-2.0) Calcium 8.8 (8.5-10.1) mg/dL Total Bilirubin 0.40 (0.2-1.0) mg/dL AST 194 H (15-37) U/L ALT 181 H (12-78) U/L Alkaline Phosphatase 53 (46-116) U/L Serum Total Protein 6.7 (6.4-8.2) gm/dL Albumin 3.8 (3.4-5.0) g/dL Lipase 158 (73-393) U/L Ur Collection Type CCMS Urine Color YELLOW (YELLOW) Urine Appearance CLOUDY (CLEAR) Urine pH 5.0 (5-6) Ur Specific [place] 1.020 (1.005-1.025) Urine Protein 30 (Negative) Urine Ketones NEGATIVE (NEGATIVE) Urine Blood 250 (0-5) Romario/ul Urine Nitrite NEGATIVE (NEGATIVE) Urine Bilirubin NEGATIVE (NEGATIVE) Urine Urobilinogen NORMAL (0-1) mg/dL Ur Leukocyte Esterase TRACE (NEGATIVE) Urine Microscopic RBC >100 (0-2) /HPF Urine Microscopic WBC 5-10 (0-5) /HPF Ur Epithelial Cells RARE (FEW) /HPF Urine Bacteria FEW (NEGATIVE) /HPF Urine Mucus MODERATE (NEGATIVE) /HPF Urine Culture Reflexed YES (NO) Urine Glucose NEGATIVE (NEGATIVE) mg/dL Specimen Received 03/02/17 0810 03/02/17 Range/Units 07:20 WBC 6.8 (4.0-10.5) K/mm3 RBC 5.89 H (4.1-5.6) M/mm3 Hgb 16.5 (12.5-18.0) gm/dl Hct 49.8 (42-50) % MCV 84.6 (78-100) fl MCH 28.0 (26-32) pg MCHC 33.1 (32-36) g/dl RDW 13.4 (11.5-14.0) % Plt Count 255 (150-450) K/mm3 MPV 9.6 H (6-9.5) fl Gran % 56.7 (36.0-66.0) % Lymphocytes % 33.8 (24.0-44.0) % Monocytes % 7.6 (0.0-12.0) % Eosinophils % 1.6 (0.00-5.0) % Basophils % 0.3 (0.0-0.4) % Basophils # 0.02 (0-0.4) Sodium (136-145) mEq/L Potassium (3.5-5.1) mEq/L Chloride (98-107) mEq/L Carbon Dioxide (21-32) mEq/L Anion Gap (5-15) MEQ/L BUN (9-20) mg/dL Creatinine (0.55-1.30) mg/dl Estimated GFR ML/MIN Glucose (70-110) MG/DL Lactic Acid (0.4-2.0) Calcium (8.5-10.1) mg/dL Total Bilirubin (0.2-1.0) mg/dL AST (15-37) U/L ALT (12-78) U/L Alkaline Phosphatase (46-116) U/L Serum Total Protein (6.4-8.2) gm/dL Albumin (3.4-5.0) g/dL Lipase (73-393) U/L Ur Collection Type Urine Color (YELLOW) Urine Appearance (CLEAR) Urine pH (5-6) Ur Specific [place] (1.005-1.025) Urine Protein (Negative) Urine Ketones (NEGATIVE) Urine Blood (0-5) Romario/ul Urine Nitrite (NEGATIVE) Urine Bilirubin (NEGATIVE) Urine Urobilinogen (0-1) mg/dL Ur Leukocyte Esterase (NEGATIVE) Urine Microscopic RBC (0-2) /HPF Urine Microscopic WBC (0-5) /HPF Ur Epithelial Cells (FEW) /HPF Urine Bacteria (NEGATIVE) /HPF Urine Mucus (NEGATIVE) /HPF Urine Culture Reflexed (NO) Urine Glucose (NEGATIVE) mg/dL Specimen Received - Progress Progress: improved, pain not gone completely Progress Note: 03/02/17 08:32 The patient was given 1 L normal saline, Dilaudid 1 mg, Zofran 4 mg, and Phenergan 25 mg IV with improvement of pain. Counseled pt/family regarding: lab results, diagnosis, rad results - Departure Time of Disposition: 08:33 Departure Disposition: Home Clinical Impression: Ureterolithiasis Condition: Stable Critical Care Time: No Referrals: RASHI ALVARADO JR [Primary Care Provider] - Additional Instructions: You have a 5 mm stone in the mid section of your left ureter. You have mild hydronephrosis. You were given Flomax 0.4 mg orally. You were given fluids, Zofran 4 mg, Phenergan 25 mg, and Dilaudid 2 mg by IV in the ER. Takes [place] one to 2 tablets every 4-6 hours as needed for pain. Stay well hydrated. Strain all urine to collect the stone and bring to your local doctor for further evaluation. Prescriptions: Hydrocodone/APAP 5/325 [[place] 5/325 mg] 1 each PO Q4-6HPRN PRN #10 tablet PRN Reason: Pain
[2017-03-02] MEDS ORDERED: Flomax 0.4 MG PO STA (07:21)
[2017-03-02 07:32] LABS: BASOPHIL % 0.3 % (0.0-0.4); Eosinophil % 1.6 % (0.00-5.0); Granulocytes % 56.7 % (36.0-66.0); Lymphocytes % 33.8 % (24.0-44.0); Mean Cell Volume 84.6 fl (78-100); Mean Platelet Volume 9.6 fl (6-9.5); Monocytes % 7.6 % (0.0-12.0); Platelet Count 255 K/mm3 (150-450); Red Blood Count 5.89 M/mm3 (4.1-5.6); Red Cell Distribution Width 13.4 % (11.5-14.0); White Blood Count 6.8 K/mm3 (4.0-10.5)
[2017-03-02] MEDS ORDERED: Zofran 4 MG/2 ML VIAL ONE (07:32)
[2017-03-02] MEDS ORDERED: Sodium Chloride 0.9% 1000 ML 1,000 ML ONE (07:33)
[2017-03-02] MEDS ORDERED: Phenergan 25 MG INJ ONE (07:33)
[2017-03-02] MEDS ORDERED: Flomax 0.4 MG ONE (07:33)
[2017-03-02] MEDS ORDERED: Hydromorphone 1 mg/ml Ampule ONE ×2 (07:33→08:48)
[2017-03-02 07:46] LABS: Lactic Acid 2.3 (0.4-2.0)
[2017-03-02 07:52] LABS: ALBUMIN 3.8 g/dL (3.4-5.0); ALKALINE PHOSPHATASE 53 U/L (46-116); ANION GAP 13.4 MEQ/L (5-15); BLOOD UREA NITROGEN 6 mg/dL (9-20); CHLORIDE 105 mEq/L (98-107); Carbon Dioxide 28.3 mEq/L (21-32); Glucose 92 MG/DL (70-110); LIPASE 158 U/L (73-393); Potassium 3.8 mEq/L (3.5-5.1); SGOT/AST 194 U/L (15-37); SGPT/ALT 181 U/L (12-78); SODIUM 143 mEq/L (136-145); Total Protein 6.7 gm/dL (6.4-8.2)
[2017-03-02 08:14] LABS: Bilirubin NEGATIVE (NEGATIVE); Blood 250 Ery/ul (0-5); COMPLETE URINE MICROSCOPIC? YES; Collection Type CCMS; Glucose NEGATIVE (NEGATIVE); Leukocyte Esterase TRACE (NEGATIVE)
[2017-03-02 08:19] LABS: ADD URINE CULTURE? YES (NO); Bacteria FEW /HPF (NEGATIVE); Epithelial Cells RARE /HPF (FEW); Mucus MODERATE /HPF (NEGATIVE)
[2017-03-02 09:12] VITALS: BP 140/82; PULSE 87; O2SAT 100
--- NOTE | 2017-03-02 19:48 | XRAY ---
Indication: Left flank pain. History of stones. Multiple contiguous axial images obtained through the abdomen and pelvis without contrast. Comparison: February 19, 2017. Lung bases essentially clear. Heart is not enlarged. There is now a 5 mm left midureteral calculus, approximately L4 level. Proximal ureter is slightly prominent and there is mild hydronephrosis with minimal renal edema consistent with obstructive uropathy. Again bilateral micro-calculi and right renal cortical cyst. Stable 1 cm right adrenal adenoma. Noncontrasted stomach and bowel loops appear nonobstructed. Remaining liver, gallbladder, pancreas, spleen, adrenal glands, bladder, and aorta appear unremarkable for noncontrast exam. Osseous structures intact. Impression: 1. New 5 mm left midureteral calculus producing partial junction as detailed. Stable bilateral renal micro-calculi and right renal cyst. 2. Stable right adrenal adenoma. Comment: Preliminary interpretation was made by [facility]. No discrepancy. CTDI 23.62
== END 2017-03-02 09:31 | disposition home or self-care (01) ==
LOC: ED 06:44
DX: N20.1 Calculus of ureter (principal); R10.9 Unspecified abdominal pain; R11.2 Nausea with vomiting, unspecified
CPT/HCPCS: 36000; 36415; 74176; 80053; 81000; 83605; 83690; 85025; 87086; 96360; 96374; 96375; 96376; 99284; J1170; J2405; J2550; A9270-GY

== ENCOUNTER 2017-04-26 05:14 | Emergency (ER) | payer SELFPAY ==
[2017-04-26] MEDS ORDERED: BENADRYL 50 MG/ML IV ONE (05:27)
[2017-04-26] MEDS ORDERED: Sodium Chloride 0.9% 1000 ML 1,000 ML IV STA (05:27)
[2017-04-26] MEDS ORDERED: MORPHINE SULFATE 10 MG/ML IV ONE ×2 (05:27→06:16)
[2017-04-26] MEDS ORDERED: BENADRYL 50 MG/ML ONE (05:34)
[2017-04-26] MEDS ORDERED: Sodium Chloride 0.9% 1000 ML 1,000 ML ONE (05:35)
[2017-04-26] MEDS ORDERED: MORPHINE SULFATE 10 MG/ML ONE ×2 (05:35→06:21)
--- NOTE | 2017-04-26 05:55 | ERPHSYRPT ---
- History of Present Illness Time Seen by Provider: 04/26/17 05:19 Source: patient Patient Subjective Stated Complaint: pt states he began having rt flank pain at approx 0100, states pain in radiating to rt groin and rt upper abd. Triage Nursing Assessment: pt alert and orientd, answers questions approp. pt ambulatory with steady gait noted. respirations nonlabored with lungs cta. abd soft and nontender to light palpation. bowel sounds present x4 quads. Physician History: CC: right flank pain Hx: 31 y/o patient of Dr Pantoja Jr and Dr Colon urology. He has hx of frequent recurrent nephrolithiasis. He has right flank pain radiating to the groin since 1AM similar to prior kidney stones. No N/V. No fever or chills. No hematuria. No abd pain. No chest pain. Pain is severe. Timing/Duration: today (1AM) Allergies/Adverse Reactions: ketorolac tromethamine [From Toradol] Allergy (Verified 04/26/17 05:33) Itching shrimp Allergy (Verified 04/26/17 05:33) Home Medications: Escitalopram Oxalate [Lexapro] 1 tab PO DAILY 02/25/16 [History] Esomeprazole Magnesium [Nexium] 40 mg PO DAILY 02/25/16 [History] Lorazepam 0.5 mg [Ativan 0.5 MG] 1 mg PO TID PRN 02/25/16 [History] Temazepam [Restoril] 30 mg PO DAILY PRN 02/25/16 [History] Testosterone [Androgel] 150 gm IM WEEKLY 02/25/16 [History] Hx Tetanus, Diphtheria Vaccination/Date Given: Yes Hx Influenza Vaccination/Date Given: No Hx Pneumococcal Vaccination/Date Given: No Immunizations Up to Date: Yes - Past Medical History Pertinent Past Medical History: Yes Neurological History: Migraines ENT History: No Pertinent History Cardiac History: No Pertinent History Respiratory History: No Pertinent History Endocrine Medical History: No Pertinent History Musculoskeletal History: No Pertinent History GI Medical History: GERD History: Renal Disease Psycho-Social History: Anxiety, Depression Male Reproductive Disorders: No Pertinent History Other Medical History: Kallmann's Disease - frequent kidney stones. freq abd pain, n&v - Past Surgical History Past Surgical History: Yes Neuro Surgical History: No Pertinent History Cardiac: No Pertinent History Respiratory: No Pertinent History Gastrointestinal: No Pertinent History Genitourinary: Kidney Surgery Musculoskeletal: No Pertinent History Male Surgical History: No Pertinent History Other Surgical History: nephrolithiasis removal - egd - colonoscopy wisdom teeth removed -lipoma removed from back - Social History Smoking Status: Never smoker Exposure to second hand smoke: No Drug Use: none Patient Lives Alone: No (works [employer]) - Review of Systems Constitutional: No Fever, No Chills Eyes: No Symptoms Ears, Nose, & Throat: No Symptoms Respiratory: No Symptoms, No Cough Abdominal/Gastrointestinal: No Abdominal Pain, No Nausea, No Vomiting, No Diarrhea Genitourinary Symptoms: Flank Pain (right), No Dysuria, No Hematuria Skin: No Rash Neurological: No Headache All Other Systems: Reviewed and Negative - Nursing Vital Signs Nursing Vital Signs: Initial Vital Signs Temperature 98.0 F 04/26/17 05:19 Pulse Rate 121 H 04/26/17 05:19 Respiratory Rate 20 04/26/17 05:19 Blood Pressure 157/98 04/26/17 05:19 O2 Sat by Pulse Oximetry 98 04/26/17 05:19 Pain Scale Pain Intensity 5 - Physical Exam General Appearance: alert, other (tall, large man) Eye Exam: PERRL/EOMI Ears, Nose, Throat Exam: normal ENT inspection, moist mucous membranes Neck Exam: normal inspection, non-tender, supple Respiratory Exam: normal breath sounds, lungs clear Cardiovascular Exam: regular rate/rhythm, No murmur Gastrointestinal/Abdomen Exam: soft, No tenderness, No distention Male Genital Exam: normal genitalia, No epididymal tenderness Back Exam: normal inspection, normal range of motion, CVA tenderness (right) Extremity Exam: normal inspection, normal range of motion Neurologic Exam: alert, oriented x 3, cooperative, scarf and 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 There is mild to moderate right hydronephrosis. There is a right renal cyst. Bladder small. ----Danni Lopez MD, RDMS - Course Nursing assessment & vital signs reviewed: Yes - Radiology Exams KUB X-ray Interpretation: Reviewed by me (renal microcalcifications, none appear to be ureteral) Ordered Tests: Active Orders 24 hr Category Date Time Status Clean Catch Urine Specimen STAT Care 04/26/17 05:27 Active IV Insertion STAT Care 04/26/17 05:27 Active KUB Stat Exams 04/26/17 05:27 Taken CBC W DIFF Stat Lab 04/26/17 06:01 Completed CMP Stat Lab 04/26/17 06:01 Completed CULTURE,URINE Stat Lab 04/26/17 06:00 Received UA W/ MICROSCOPIC Stat Lab 04/26/17 06:00 Completed Medication Summary Discontinued Medications Generic Name Dose Route Start Last Admin Trade Name Freq PRN Reason Stop Dose Admin Diphenhydramine HCl 50 mg 04/26/17 05:27 04/26/17 05:40 Benadryl 50 Mg/Ml IV 04/26/17 05:28 50 mg STAT ONE Administration Diphenhydramine HCl Confirm 04/26/17 05:34 Benadryl 50 Mg/Ml Administered 04/26/17 05:35 Dose 50 mg .ROUTE .STK-MED ONE Sodium Chloride 1,000 mls @ 999 mls/hr 04/26/17 05:27 04/26/17 05:41 Sodium Chloride 0.9% 1000 Ml IV 04/26/17 06:27 999 mls/hr .Q1H1M STA Administration Sodium Chloride Confirm 04/26/17 05:35 Sodium Chloride 0.9% 1000 Ml Administered 04/26/17 05:36 Dose 1,000 mls @ ud .ROUTE .STK-MED ONE Morphine Sulfate 10 mg 04/26/17 05:27 04/26/17 05:40 Morphine Sulfate 10 Mg/Ml IV 04/26/17 05:28 10 mg STAT ONE Administration Morphine Sulfate Confirm 04/26/17 05:35 Morphine Sulfate 10 Mg/Ml Administered 04/26/17 05:36 Dose 10 mg .ROUTE .STK-MED ONE Morphine Sulfate 10 mg 04/26/17 06:16 04/26/17 06:22 Morphine Sulfate 10 Mg/Ml IV 04/26/17 06:17 10 mg STAT ONE Administration Morphine Sulfate Confirm 04/26/17 06:21 Morphine Sulfate 10 Mg/Ml Administered 04/26/17 06:22 Dose 10 mg .ROUTE .STK-MED ONE Lab/Rad Data: Laboratory Result Diagrams 04/26/17 06:01 04/26/17 06:01 Laboratory Results 04/26/17 04/26/17 04/26/17 Range/Units 06:01 06:01 06:00 WBC 9.6 (4.0-10.5) K/mm3 RBC 5.81 H (4.1-5.6) M/mm3 Hgb 16.0 (12.5-18.0) gm/dl Hct 48.8 (42-50) % MCV 84.0 (78-100) fl MCH 27.5 (26-32) pg MCHC 32.8 (32-36) g/dl RDW 13.7 (11.5-14.0) % Plt Count 258 (150-450) K/mm3 MPV 9.6 H (6-9.5) fl Gran % 66.9 H (36.0-66.0) % Lymphocytes % 22.8 L (24.0-44.0) % Monocytes % 7.7 (0.0-12.0) % Eosinophils % 2.3 (0.00-5.0) % Basophils % 0.3 (0.0-0.4) % Basophils # 0.03 (0-0.4) Sodium 142 (136-145) mEq/L Potassium 3.5 (3.5-5.1) mEq/L Chloride 104 (98-107) mEq/L Carbon Dioxide 31.8 (21-32) mEq/L Anion Gap 10.1 (5-15) MEQ/L BUN 6 L (9-20) mg/dL Creatinine 1.06 (0.55-1.30) mg/dl Estimated GFR > 60 ML/MIN Glucose 104 (70-110) MG/DL Calcium 8.9 (8.5-10.1) mg/dL Total Bilirubin 0.20 (0.2-1.0) mg/dL AST 18 (15-37) U/L ALT 43 (12-78) U/L Alkaline Phosphatase 71 (46-116) U/L Serum Total Protein 7.3 (6.4-8.2) gm/dL Albumin 3.8 (3.4-5.0) g/dL Ur Collection Type VOID Urine Color YELLOW (YELLOW) Urine Appearance HAZY (CLEAR) Urine pH 7.0 (5-6) Ur Specific [place] 1.015 (1.005-1.025) Urine Protein TRACE (Negative) Urine Ketones NEGATIVE (NEGATIVE) Urine Blood 250 (0-5) Romario/ul Urine Nitrite NEGATIVE (NEGATIVE) Urine Bilirubin NEGATIVE (NEGATIVE) Urine Urobilinogen NORMAL (0-1) mg/dL Ur Leukocyte Esterase TRACE (NEGATIVE) Urine Microscopic RBC 10-15 (0-2) /HPF Urine Microscopic WBC 2-5 (0-5) /HPF Ur Epithelial Cells FEW (FEW) /HPF Urine Bacteria MODERATE (NEGATIVE) /HPF Urine Culture Reflexed YES (NO) Urine Glucose NEGATIVE (NEGATIVE) mg/dL Specimen Received 04/26/17 0600 - Progress Progress Note: 04/26/17 05:54 Symptoms are consistent with renal colic. He has multiple CT scans in the past so will get KUB and treat for stone disease. Ultrasound is consistent. 04/26/17 06:45 Benadryl and morphine given for pain. He has symptoms consistent with renal colic. Rx norco. Will release with instr. Counseled pt/family regarding: lab results, diagnosis, need for follow-up, rad results - Departure Time of Disposition: 06:46 Departure Disposition: Home Clinical Impression: Renal colic on right side, Recurrent kidney stones Condition: Fair Critical Care Time: No Referrals: RASHI PANTOJA JR [Primary Care Provider] - FIFI SILVA [NON-STAFF PHY W/O PRIVILEGES] - Instructions: Kidney Stones Additional Instructions: Drink plenty of fluids. Rx norco. Return for uncontrolled pain, recurrent vomiting, fever, or concerns. Follow up with your urologist next week. Strain urine for stone. Prescriptions: Hydrocodone/APAP 10/325 mg [[place] 10/325 MG Tablet] 1 tab PO Q6H PRN PRN # 15 tablet PRN Reason: Pain
[2017-04-26 06:01] LABS: BASOPHIL % 0.3 % (0.0-0.4); Eosinophil % 2.3 % (0.00-5.0); Granulocytes % 66.9 % (36.0-66.0); Lymphocytes % 22.8 % (24.0-44.0); Mean Corpuscular Hemoglobin 27.5 pg (26-32); Mean Platelet Volume 9.6 fl (6-9.5); Monocytes % 7.7 % (0.0-12.0); Platelet Count 258 K/mm3 (150-450); Red Blood Count 5.81 M/mm3 (4.1-5.6); Red Cell Distribution Width 13.7 % (11.5-14.0); White Blood Count 9.6 K/mm3 (4.0-10.5)
[2017-04-26 06:19] LABS: Bacteria MODERATE /HPF (NEGATIVE); Bilirubin NEGATIVE (NEGATIVE); Blood 250 Ery/ul (0-5); COMPLETE URINE MICROSCOPIC? YES; Collection Type VOID; Epithelial Cells FEW /HPF (FEW); Glucose NEGATIVE (NEGATIVE); Leukocyte Esterase TRACE (NEGATIVE)
[2017-04-26 06:20] LABS: ADD URINE CULTURE? YES (NO)
[2017-04-26 06:26] LABS: ALBUMIN 3.8 g/dL (3.4-5.0); ALKALINE PHOSPHATASE 71 U/L (46-116); ANION GAP 10.1 MEQ/L (5-15); BLOOD UREA NITROGEN 6 mg/dL (9-20); CHLORIDE 104 mEq/L (98-107); Carbon Dioxide 31.8 mEq/L (21-32); Glucose 104 MG/DL (70-110); Potassium 3.5 mEq/L (3.5-5.1); SGOT/AST 18 U/L (15-37); SGPT/ALT 43 U/L (12-78); SODIUM 142 mEq/L (136-145); Total Protein 7.3 gm/dL (6.4-8.2)
[2017-04-26 06:30] VITALS: BP 146/86; PULSE 98
[2017-04-26 06:46] VITALS: O2SAT 98
--- NOTE | 2017-04-26 07:40 | XRAY ---
Indication: Right flank pain. Comparison: January 30, 2017. KUB demonstrates mild diffuse scattered colonic fecal debris without obstruction. Stable left lower pole renal microcalculus. Remaining solid organs and osseous structures unremarkable.
== END 2017-04-26 07:00 | disposition home or self-care (01) ==
LOC: ED 05:14
DX: N23 Unspecified renal colic (principal); Z87.442 Personal history of urinary calculi
CPT/HCPCS: 36000; 36415; 74000; 80053; 81000; 85025; 87086; 96360; 96374; 96375; 99284; J1200; J2270

== ENCOUNTER 2017-06-27 01:52 | Emergency (ER) | payer BC ==
[2017-06-27 02:07] VITALS: O2SAT 98
[2017-06-27] MEDS ORDERED: SUBLIMAZE 100 MCG/2 ML IV ONE (02:10)
[2017-06-27] MEDS ORDERED: Sodium Chloride 0.9% 1000 ML 1,000 ML IV STA (02:10)
[2017-06-27] MEDS ORDERED: Phenergan 25 MG INJ IV ONE (02:10)
--- NOTE | 2017-06-27 02:16 | ERPHSYRPT ---
- History of Present Illness Time Seen by Provider: 06/27/17 02:00 Historian: patient Exam Limitations: no limitations Patient Subjective Stated Complaint: c/o vomiting and abd pain Triage Nursing Assessment: abd pain consistent began tonight around 2200, vomiting x 5 tonight, no diarrhea or fever known, c/o chills Physician History: FOR THE PAST 4 DAYS PT HAS HAD INTERMITTENT RUQ ABDOMINAL PAIN RADIATING AROUND TO THE RIGHT MID BACK WITH VOMITING X5 WITHOUT BLOOD. PT HAS HAD DIAPHORESIS AND CHILLS YESTERDAY. LAST BM WAS 2 DAYS AGO & WNL. PT STATES HE HAS HAD GALLBLADDER PROBLEMS BEFORE AND HAS HAD A HIDA SCAN AT [facility] IN FEBRUARY OF LAST YEAR. PT ALSO STATES HE BURNT HIS LEFT MIDDLE FINGER ON PIZZA ABOUT 7 HOURS AGO. Allergies/Adverse Reactions: ketorolac tromethamine [From Toradol] Allergy (Verified 04/26/17 05:33) Itching shrimp Allergy (Verified 04/26/17 05:33) Home Medications: Escitalopram Oxalate [Lexapro] 1 tab PO DAILY 02/25/16 [History] Esomeprazole Magnesium [Nexium] 40 mg PO DAILY 02/25/16 [History] Lorazepam 0.5 mg [Ativan 0.5 MG] 1 mg PO TID PRN 02/25/16 [History] Temazepam [Restoril] 30 mg PO DAILY PRN 02/25/16 [History] Testosterone [Androgel] 150 gm IM WEEKLY 02/25/16 [History] Hx Tetanus, Diphtheria Vaccination/Date Given: Yes Hx Influenza Vaccination/Date Given: No Hx Pneumococcal Vaccination/Date Given: No Immunizations Up to Date: Yes - Review of Systems Constitutional: Chills Abdominal/Gastrointestinal: Abdominal Pain, Vomiting, No Diarrhea Musculoskeletal: Back Pain Endocrine: Excessive Sweating All Other Systems: Reviewed and Negative - Past Medical History Pertinent Past Medical History: Yes Neurological History: Migraines ENT History: No Pertinent History Cardiac History: No Pertinent History Respiratory History: No Pertinent History Endocrine Medical History: No Pertinent History Musculoskeletal History: No Pertinent History GI Medical History: GERD History: Renal Disease Psycho-Social History: Anxiety, Depression Male Reproductive Disorders: No Pertinent History Other Medical History: Kallmann's Disease - frequent kidney stones. freq abd pain, n&v - Past Surgical History Past Surgical History: Yes Neuro Surgical History: No Pertinent History Cardiac: No Pertinent History Respiratory: No Pertinent History Gastrointestinal: No Pertinent History Genitourinary: Kidney Surgery Musculoskeletal: No Pertinent History Male Surgical History: No Pertinent History Other Surgical History: nephrolithiasis removal - egd - colonoscopy wisdom teeth removed -lipoma removed from back - Social History Smoking Status: Never smoker Exposure to second hand smoke: No Drug Use: none Patient Lives Alone: No (works [place]) - Nursing Vital Signs Nursing Vital Signs: Initial Vital Signs Temperature 98.6 F 06/27/17 02:03 Pulse Rate 106 H 06/27/17 02:03 Respiratory Rate 20 06/27/17 02:03 Blood Pressure 142/116 06/27/17 02:03 O2 Sat by Pulse Oximetry 98 06/27/17 02:03 Pain Scale Pain Intensity 8 - Physical Exam General Appearance: alert Eye Exam: PERRL/EOMI Ears, Nose, Throat Exam: TMs normal, pharynx normal, moist mucous membranes Neck Exam: normal inspection Respiratory Exam: lungs clear Cardiovascular Exam: normal heart sounds Gastrointestinal/Abdomen Exam: soft, normal bowel sounds Back Exam: normal range of motion, No rash Extremity Exam: normal inspection, No pedal edema Neurologic Exam: alert, cooperative Skin Exam: other (GUILLORY TO DISTAL PHALYNX OF THE LEFT MIDDLE FINGER WITH BLISTERING ~ 1 CM DIAMETER.) SpO2 Interpretation: normal SpO2: 98 Oxygen Delivery: Room Air - Course Nursing assessment & vital signs reviewed: Yes - CT Exams Abdomen/Pelvis CT Interpretation: Tele-radiologist Report (BILATERAL NONOBSTRUCTING RENAL CALCULI. NO HYDRONEPHROSIS OR OBSTRUCTIVE UROLITHIASIS. GALLBLADDER AND BILE DUCTS ARE GROSSLY UNREMARKABLE.) Ordered Tests: Active Orders 24 hr Category Date Time Status IV Insertion STAT Care 06/27/17 02:10 Active Wound Care STAT Care 06/27/17 04:42 Active ABDOMEN AND PELVIS W/0 CONTRAS [CT] Stat Exams 06/27/17 03:23 Ordered AMYLASE Stat Lab 06/27/17 02:20 Completed CBC W DIFF Stat Lab 06/27/17 02:20 Completed CMP Stat Lab 06/27/17 02:20 Completed CULTURE,URINE Stat Lab 06/27/17 03:15 Received LIPASE Stat Lab 06/27/17 02:20 Completed MAGNESIUM Stat Lab 06/27/17 02:20 Completed UA W/ MICROSCOPIC Stat Lab 06/27/17 03:15 Completed Medication Summary Generic Name Dose Route Start Last Admin Trade Name Miguel A PRN Reason Stop Dose Admin Ceftriaxone Sodium/Dextrose 1 g in 50 mls @ 100 mls/hr 06/27/17 04:43 Rocephin 1 Gm-D5w 50 Ml Bag IV 06/27/17 05:12 STAT STA Discontinued Medications Generic Name Dose Route Start Last Admin Trade Name Miguel A PRN Reason Stop Dose Admin Diphenhydramine HCl 25 mg 06/27/17 04:44 Benadryl 50 Mg/Ml IV 06/27/17 04:45 STAT ONE Fentanyl Citrate 50 mcg 06/27/17 02:10 06/27/17 02:38 Sublimaze 100 Mcg/2 Ml IV 06/27/17 02:11 50 mcg STAT ONE Administration Fentanyl Citrate Confirm 06/27/17 02:28 Sublimaze 100 Mcg/2 Ml Administered 06/27/17 02:29 Dose 100 mcg .ROUTE .STK-MED ONE Hydromorphone HCl 1 mg 06/27/17 03:21 06/27/17 03:23 Hydromorphone 1 Mg/Ml Ampule IV 06/27/17 03:22 1 mg STAT ONE Administration Hydromorphone HCl Confirm 06/27/17 03:21 Hydromorphone 1 Mg/Ml Ampule Administered 06/27/17 03:22 Dose 1 mg .ROUTE .STK-MED ONE Hydromorphone HCl 1 mg 06/27/17 04:44 Hydromorphone 1 Mg/Ml Ampule IV 06/27/17 04:45 STAT ONE Sodium Chloride 1,000 mls @ 999 mls/hr 06/27/17 02:10 06/27/17 02:38 Sodium Chloride 0.9% 1000 Ml IV 06/27/17 03:10 999 mls/hr .Q1H1M STA Administration Sodium Chloride Confirm 06/27/17 02:28 Sodium Chloride 0.9% 1000 Ml Administered 06/27/17 02:29 Dose 1,000 mls @ ud .ROUTE .STK-MED ONE Ondansetron HCl 4 mg 06/27/17 03:21 06/27/17 03:23 Zofran 4 Mg/2 Ml Vial IV 06/27/17 03:22 4 mg STAT ONE Administration Ondansetron HCl Confirm 06/27/17 03:21 Zofran 4 Mg/2 Ml Vial Administered 06/27/17 03:22 Dose 4 mg .ROUTE .STK-MED ONE Promethazine HCl 12.5 mg 06/27/17 02:10 06/27/17 02:38 Phenergan 25 Mg Inj IV 06/27/17 02:11 12.5 mg STAT ONE Administration Promethazine HCl Confirm 06/27/17 02:27 Phenergan 25 Mg Inj Administered 06/27/17 02:28 Dose 25 mg .ROUTE .STK-MED ONE Lab/Rad Data: Laboratory Result Diagrams 06/27/17 02:20 06/27/17 02:20 Laboratory Results 06/27/17 06/27/17 06/27/17 Range/Units 03:15 02:20 02:20 WBC 7.9 (4.0-10.5) K/mm3 RBC 5.39 (4.1-5.6) M/mm3 Hgb 15.0 (12.5-18.0) gm/dl Hct 44.2 (42-50) % MCV 82.0 (78-100) fl MCH 27.8 (26-32) pg MCHC 33.9 (32-36) g/dl RDW 12.7 (11.5-14.0) % Plt Count 244 (150-450) K/mm3 MPV 9.8 H (6-9.5) fl Gran % 64.6 (36.0-66.0) % Lymphocytes % 24.1 (24.0-44.0) % Monocytes % 9.7 (0.0-12.0) % Eosinophils % 1.5 (0.00-5.0) % Basophils % 0.1 (0.0-0.4) % Basophils # 0.01 (0-0.4) Sodium 142 (136-145) mEq/L Potassium 3.5 (3.5-5.1) mEq/L Chloride 106 (98-107) mEq/L Carbon Dioxide 26.2 (21-32) mEq/L Anion Gap 12.9 (5-15) MEQ/L BUN 15 (9-20) mg/dL Creatinine 1.16 (0.55-1.30) mg/dl Estimated GFR > 60 ML/MIN Glucose 102 (70-110) MG/DL Calcium 9.1 (8.5-10.1) mg/dL Magnesium 1.8 (1.8-2.4) mg/dL Total Bilirubin 0.30 (0.2-1.0) mg/dL AST 23 (15-37) U/L ALT 51 (12-78) U/L Alkaline Phosphatase 68 (46-116) U/L Serum Total Protein 7.2 (6.4-8.2) gm/dL Albumin 3.9 (3.4-5.0) g/dL Amylase 76 (25-115) U/L Lipase 214 (73-393) U/L Ur Collection Type VOID Urine Color YELLOW (YELLOW) Urine Appearance SLIGHTLY CLOUDY (CLEAR) Urine pH 5.0 (5-6) Ur Specific [place] 1.030 (1.005-1.025) Urine Protein TRACE (Negative) Urine Ketones NEGATIVE (NEGATIVE) Urine Blood 250 (0-5) Romario/ul Urine Nitrite NEGATIVE (NEGATIVE) Urine Bilirubin NEGATIVE (NEGATIVE) Urine Urobilinogen NORMAL (0-1) mg/dL Ur Leukocyte Esterase NEGATIVE (NEGATIVE) Urine Microscopic RBC 25-50 (0-2) /HPF Urine Microscopic WBC 2-5 (0-5) /HPF Ur Epithelial Cells FEW (FEW) /HPF Urine Bacteria MODERATE (NEGATIVE) /HPF Urine Mucus MODERATE (NEGATIVE) /HPF Urine Culture Reflexed YES (NO) Urine Glucose NEGATIVE (NEGATIVE) mg/dL Specimen Received 06/27/17314 - Departure Time of Disposition: 04:57 Departure Disposition: Home Clinical Impression: ABDOMINAL PAIN, UTI, SECOND DEGREE GUILLORY TO LEFT MIDDLE FINGER Condition: Stable Critical Care Time: No Referrals: RASHI ALVARADO JR [Primary Care Provider] - Instructions: Urinary Tract Infections in Adults, Nausea and Vomiting, Adult Additional Instructions: FOLLOW UP WITH PRIVATE DOCTOR TOMORROW. APPLY SILVADENE CREAM DAILY WITH TELFA TO LEFT MIDDLE FINGER BURN FOR THE NEXT 2 WEEKS. Prescriptions: Ondansetron ODT 4 MG [Zofran Odt 4 mg] 4 mg PO Q6H PRN PRN #14 tab.rapdis PRN Reason: Nausea/Vomiting Smz/Tmp Ds Tablet [Bactrim Ds Tablet] 1 udtab PO BID #20 tablet
[2017-06-27 02:23] LABS: BASOPHIL % 0.1 % (0.0-0.4); Basophil (Absolute #) 0.01 (0-0.4); Eosinophil % 1.5 % (0.00-5.0); Eosinophil (Absolute #) 0.12 (0-0.5); Granulocytes % 64.6 % (36.0-66.0); Hematocrit 44.2 % (42-50); Lymphocyte (Absolute #) 1.91 (1.0-4.6); Lymphocytes % 24.1 % (24.0-44.0); Mean Corpuscular Hemoglobin 27.8 pg (26-32); Mean Corpuscular Hgb Concent. 33.9 g/dl (32-36); Mean Platelet Volume 9.8 fl (6-9.5); Monocyte (Absolute #) 0.77 (0.0-1.3); Monocytes % 9.7 % (0.0-12.0); Platelet Count 244 K/mm3 (150-450); Red Blood Count 5.39 M/mm3 (4.1-5.6); Red Cell Distribution Width 12.7 % (11.5-14.0); White Blood Count 7.9 K/mm3 (4.0-10.5)
[2017-06-27] MEDS ORDERED: Phenergan 25 MG INJ ONE (02:27)
[2017-06-27] MEDS ORDERED: Sodium Chloride 0.9% 1000 ML 1,000 ML ONE (02:28)
[2017-06-27] MEDS ORDERED: SUBLIMAZE 100 MCG/2 ML ONE (02:28)
[2017-06-27 02:42] LABS: ALBUMIN 3.9 g/dL (3.4-5.0); ALKALINE PHOSPHATASE 68 U/L (46-116); AMYLASE 76 U/L (25-115); ANION GAP 12.9 MEQ/L (5-15); BLOOD UREA NITROGEN 15 mg/dL (9-20); CHLORIDE 106 mEq/L (98-107); Calcium 9.1 mg/dL (8.5-10.1); Carbon Dioxide 26.2 mEq/L (21-32); Creatinine 1 1.16 mg/dl (0.55-1.30); EST GLOMERULAR FILTRATION RATE > 60 ML/MIN; Glucose 102 MG/DL (70-110); LIPASE 214 U/L (73-393); MAGNESIUM 1.8 mg/dL (1.8-2.4); Potassium 3.5 mEq/L (3.5-5.1); SGOT/AST 23 U/L (15-37); SGPT/ALT 51 U/L (12-78); SODIUM 142 mEq/L (136-145); Total Protein 7.2 gm/dL (6.4-8.2)
[2017-06-27] MEDS ORDERED: Zofran 4 MG/2 ML VIAL IV ONE (03:21)
[2017-06-27] MEDS ORDERED: Hydromorphone 1 mg/ml Ampule ONE ×2 (03:21→04:57)
[2017-06-27] MEDS ORDERED: Hydromorphone 1 mg/ml Ampule IV ONE ×2 (03:21→04:44)
[2017-06-27] MEDS ORDERED: Zofran 4 MG/2 ML VIAL ONE (03:21)
[2017-06-27 03:30] LABS: Appearance SLIGHTLY CLOUDY (CLEAR); Bacteria MODERATE /HPF (NEGATIVE); Bilirubin NEGATIVE (NEGATIVE); Blood 250 Ery/ul (0-5); Epithelial Cells FEW /HPF (FEW); Glucose NEGATIVE (NEGATIVE); Ketones NEGATIVE (NEGATIVE); Leukocyte Esterase NEGATIVE (NEGATIVE); Mucus MODERATE /HPF (NEGATIVE); Nitrite NEGATIVE (NEGATIVE); Protein,Urine Dip TRACE (Negative); Urobilinogen NORMAL mg/dL (0-1)
[2017-06-27] MEDS ORDERED: ROCEPHIN 1 Gm-D5w 50 ml Bag** 1 G/50 ML IVPB IV STA (04:43)
[2017-06-27] MEDS ORDERED: BENADRYL 50 MG/ML IV ONE (04:44)
[2017-06-27] MEDS ORDERED: SILVADENE 50 GM TP ONE ×2 (04:52→04:57)
[2017-06-27] MEDS ORDERED: ROCEPHIN 1 Gm-D5w 50 ml Bag** 1 G/50 ML IVPB IV ONE (04:57)
[2017-06-27] MEDS ORDERED: BENADRYL 50 MG/ML ONE (04:57)
[2017-06-27 05:11] VITALS: BP 145/102; PULSE 80
--- NOTE | 2017-06-27 09:01 | XRAY ---
Indication: Right upper quadrant pain. Nausea and vomiting. History of stones. Multiple contiguous axial images obtained through the abdomen and pelvis without contrast. Comparison: March 02, 2017. Lung bases demonstrates minimal bibasilar dependent atelectasis. Heart is not enlarged. Stable bilateral micro-calculi, right renal cortical cyst, and small right adrenal adenoma. Spleen remains enlarged today measuring 15.5 cm in greatest axial dimension. Noncontrasted stomach and bowel loops appear nonobstructed. Mild scattered colonic fecal debris throughout. Normal appendix. No free fluid/air. Remaining liver, gallbladder, pancreas, spleen, adrenal glands, bladder, and aorta appear unremarkable for noncontrast exam. Osseous structures intact. Impression: 1. Stable splenomegaly, bilateral renal micro-calculi, right renal cyst, and right adrenal adenoma. 2. Mild fecal stasis without obstruction. 3. No acute intra-abdominal/pelvic abnormalities on this noncontrast exam. Comment: Preliminary interpretation was made by [facility]. No critical discrepancy. CTDI 23.47
== END 2017-06-27 05:25 | disposition home or self-care (01) ==
LOC: ED 01:52
DX: R10.11 Right upper quadrant pain (principal); N39.0 Urinary tract infection, site not specified; T23.222A Burn of second degree of single left finger (nail) except thumb, initial encounter; T31.0 Burns involving less than 10% of body surface; X10.1XXA Contact with hot food, initial encounter
CPT/HCPCS: 36000; 36415; 74176; 80053; 81000; 82150; 83690; 83735; 85025; 87086; 96360; 96365; 96374; 96375; 99284; J0696; J1170; J1200; J2405; J2550; J3010; A9270-GY

== ENCOUNTER 2017-08-02 05:37 | Emergency (ER) | payer BC ==
[2017-08-02] MEDS ORDERED: BENADRYL 50 MG/ML IV ONE (06:11)
[2017-08-02] MEDS ORDERED: Zofran 4 MG/2 ML VIAL IV ONE (06:11)
[2017-08-02] MEDS ORDERED: Hydromorphone 1 mg/ml Ampule IV ONE (06:11)
[2017-08-02] MEDS ORDERED: Lactated Ringers 1,000 ML IV ONE ×2 (06:20→06:23)
--- NOTE | 2017-08-02 06:21 | ERPHSYRPT ---
<LAITH MURILLO J - Last Filed: 08/02/17 07:58> - History of Present Illness Source: patient Exam Limitations: clinical condition Patient Subjective Stated Complaint: pt states he passed a small stone around 2300 this pm; then another larger stone at 0430 this am; then started having right flank pain shortly after passing the second stone. Triage Nursing Assessment: pt ambulated to room per self; no obvious distress noted; skin p, w, and d; a&o x3; family at bedside. Timing/Duration: yesterday Activites at Onset: none Quality: sharpness, throbbing Onset Location: right flank Pain Radiation: other (RIGHT TESTICLE) Severity of Pain-Max: severe Severity of Pain-Current: severe (PAIN 8/10) Modifying Factors: Improves With: nothing Associated Symptoms: abdominal pain, urinary frequency Prior abdominal problems: similar symptoms Sexual intercourse history: non-contributory Hx Tetanus, Diphtheria Vaccination/Date Given: No Hx Influenza Vaccination/Date Given: No Hx Pneumococcal Vaccination/Date Given: No Immunizations Up to Date: No <LAITH JASSO - Last Filed: 08/02/17 22:33> - History of Present Illness Time Seen by Provider: 08/02/17 06:00 Physician History: PATIENT WITH A HISTORY OF NEPHROLITHIASIS COMPLAINS OF ACUTE ONSET OF RIGHT FLANK PAIN SINCE YESTERDAY AFTERNOON, STATES HE PASSED A SMALL STONE YESTERDAY, STATES PAIN RADIATES AROUND LOWER ABDOMEN INTO TESTICLE. HAS ASSOCIATED FREQUENCY, AND URGENCY. DENIES FEVER, CHILLS EMESIS OR DIARRHEA. (LAITH JASSO) Allergies/Adverse Reactions: shrimp Allergy (Mild, Verified 08/02/17 16:36) ketorolac tromethamine [From Toradol] Allergy (Verified 08/02/17 16:36) Itching Home Medications: Escitalopram Oxalate [Lexapro] 1 tab PO DAILY 02/25/16 [History] Esomeprazole Magnesium [Nexium] 40 mg PO DAILY 02/25/16 [History] Lorazepam 0.5 mg [Ativan 0.5 MG] 1 mg PO TID PRN 02/25/16 [History] Temazepam [Restoril] 30 mg PO DAILY PRN 02/25/16 [History] - Past Medical History Pertinent Past Medical History: Yes Neurological History: Migraines ENT History: No Pertinent History Cardiac History: No Pertinent History Respiratory History: No Pertinent History Endocrine Medical History: No Pertinent History Musculoskeletal History: No Pertinent History GI Medical History: GERD History: Renal Disease Psycho-Social History: Anxiety, Depression Male Reproductive Disorders: No Pertinent History Other Medical History: Kallmann's Disease - frequent kidney stones. freq abd pain, n&v - Past Surgical History Past Surgical History: Yes Neuro Surgical History: No Pertinent History Cardiac: No Pertinent History Respiratory: No Pertinent History Gastrointestinal: No Pertinent History Genitourinary: Kidney Surgery Musculoskeletal: No Pertinent History Male Surgical History: No Pertinent History Other Surgical History: nephrolithiasis removal - egd - colonoscopy wisdom teeth removed -lipoma removed from back - Social History Smoking Status: Never smoker Exposure to second hand smoke: No Drug Use: none Patient Lives Alone: No <JOSELAITH Hagen Filed: 08/02/17 22:33> - Review of Systems Constitutional: No Fever, No Chills Eyes: No Symptoms Ears, Nose, & Throat: No Symptoms Respiratory: No Symptoms, No Cough, No Dyspnea Cardiac: No Symptoms, No Chest Pain, No Edema, No Syncope Abdominal/Gastrointestinal: No Abdominal Pain, No Nausea, No Vomiting, No Diarrhea Genitourinary Symptoms: Frequency, Hematuria, Flank Pain, Testicle Pain, No Dysuria Musculoskeletal: No Symptoms, No Back Pain, No Neck Pain Skin: No Rash Neurological: No Dizziness, No Focal Weakness, No Sensory Changes Psychological: No Symptoms Endocrine: No Symptoms All Other Systems: Reviewed and Negative <JOSELAITH Gleason Filed: 08/02/17 22:33> - Physical Exam General Appearance: alert, other (APPEARS IN NO DISTRESS) Eye Exam: PERRL/EOMI Ears, Nose, Throat Exam: pharynx normal, moist mucous membranes Neck Exam: normal inspection, supple Respiratory Exam: normal breath sounds, lungs clear Cardiovascular Exam: regular rate/rhythm, No edema Gastrointestinal/Abdomen Exam: soft, normal bowel sounds, tenderness (RIGHT LOWER LATERAL TENDERNESS, NO GUARDING) Back Exam: normal inspection, CVA tenderness (MODERATE RIGHT CVA TENDERNESS) Extremity Exam: normal inspection, normal range of motion, No pedal edema Neurologic Exam: alert, oriented x 3, cooperative, sensation nml, No motor deficits Skin Exam: normal color, warm, dry, No rash SpO2 Interpretation: normal SpO2: 100 Oxygen Delivery: Room Air <LAITH JASSO - Last Filed: 08/02/17 22:33> - Nursing Vital Signs Nursing Vital Signs: Initial Vital Signs Temperature 98.1 F 08/02/17 05:43 Pulse Rate 110 H 08/02/17 05:43 Respiratory Rate 16 08/02/17 05:43 Blood Pressure 173/101 08/02/17 05:43 O2 Sat by Pulse Oximetry 100 08/02/17 05:43 Pain Scale Pain Intensity 7 - CT Exams abd/pelvis CT Interpretation: Tele-radiologist Report (nonobstructing renal stones, no hydronephrosis or ureteral obstruction) <LAITH MURILLO - Last Filed: 08/02/17 07:58> Ordered Tests: Active Orders 24 hr Category Date Time Status Clean Catch Urine Specimen STAT Care 08/02/17 06:11 Active IV Insertion STAT Care 08/02/17 06:11 Active ABDOMEN AND PELVIS W/0 CONTRAS [CT] Stat Exams 08/02/17 06:12 Completed BMP Stat Lab 08/02/17 06:20 Completed CBC W DIFF Stat Lab 08/02/17 06:20 Completed CULTURE,URINE Stat Lab 08/02/17 06:30 Received UA W/ MICROSCOPIC Stat Lab 08/02/17 06:30 Completed Urine Triage Profile Stat Lab 08/02/17 06:30 Completed Medication Summary Discontinued Medications Generic Name Dose Route Start Last Admin Trade Name Miguel A PRN Reason Stop Dose Admin Diphenhydramine HCl 50 mg 08/02/17 06:11 08/02/17 06:24 Benadryl 50 Mg/Ml IV 08/02/17 06:12 50 mg STAT ONE Administration Diphenhydramine HCl Confirm 08/02/17 06:22 Benadryl 50 Mg/Ml Administered 08/02/17 06:23 Dose 50 mg .ROUTE .STK-MED ONE Hydromorphone HCl 2 mg 08/02/17 06:11 08/02/17 06:24 Hydromorphone 1 Mg/Ml Ampule IV 08/02/17 06:12 2 mg STAT ONE Administration Hydromorphone HCl Confirm 08/02/17 06:23 Dilaudid 2 Mg Injection Administered 08/02/17 06:24 Dose 2 mg .ROUTE .STK-MED ONE Lactated Ringer's 1,000 mls @ 999 mls/hr 08/02/17 06:20 08/02/17 06:25 Lactated Ringers IV 08/02/17 07:20 999 mls/hr .Q1H1M ONE Administration Lactated Ringer's Confirm 08/02/17 06:23 Lactated Ringers Administered 08/02/17 06:24 Dose 1,000 mls @ ud IV .STK-MED ONE Ketamine HCl 25 mg 08/02/17 07:51 08/02/17 08:10 Ketamine Hcl 50 Mg/Ml IV 08/02/17 07:52 Not Given STAT ONE Ondansetron HCl 4 mg 08/02/17 06:11 08/02/17 06:24 Zofran 4 Mg/2 Ml Vial IV 08/02/17 06:12 4 mg STAT ONE Administration Ondansetron HCl Confirm 08/02/17 06:22 Zofran 4 Mg/2 Ml Vial Administered 08/02/17 06:23 Dose 4 mg .ROUTE .STK-MED ONE Pantoprazole Sodium 40 mg 08/02/17 07:32 08/02/17 07:38 Protonix 40 Mg Iv IV 08/02/17 07:33 40 mg STAT ONE Administration Pantoprazole Sodium Confirm 08/02/17 07:38 Protonix 40 Mg Iv Administered 08/02/17 07:39 Dose 40 mg IV .STK-MED ONE Lab/Rad Data: Laboratory Result Diagrams 08/02/17 06:20 08/02/17 06:20 Laboratory Results 08/02/17 08/02/17 08/02/17 Range/Units 06:30 06:30 06:20 WBC (4.0-10.5) K/mm3 RBC (4.1-5.6) M/mm3 Hgb (12.5-18.0) gm/dl Hct (42-50) % MCV (78-100) fl MCH (26-32) pg MCHC (32-36) g/dl RDW (11.5-14.0) % Plt Count (150-450) K/mm3 MPV (6-9.5) fl Gran % (36.0-66.0) % Lymphocytes % (24.0-44.0) % Monocytes % (0.0-12.0) % Eosinophils % (0.00-5.0) % Basophils % (0.0-0.4) % Basophils # (0-0.4) Sodium 142 (137-145) mmol/L Potassium 3.3 L (3.5-5.1) mmol/L Chloride 101 (98-107) mEq/L Carbon Dioxide 27 (22-30) mmol/L Anion Gap 17.4 H (5-15) MEQ/L BUN 11 (9-20) mg/dl Creatinine 0.93 (0.66-1.25) mg/dl Estimated GFR > 60 ML/MIN Glucose 116 H (74-106) mg/dL Calcium 9.3 (8.4-10.2) mg/dL Ur Collection Type VOID Urine Color YELLOW (YELLOW) Urine Appearance CLOUDY (CLEAR) Urine pH 7.0 (5-6) Ur Specific [place] 1.015 (1.005-1.025) Urine Protein 1+ (Negative) Urine Ketones NEGATIVE (NEGATIVE) Urine Blood 250 (0-5) Romario/ul Urine Nitrite NEGATIVE (NEGATIVE) Urine Bilirubin NEGATIVE (NEGATIVE) Urine Urobilinogen NORMAL (0-1) mg/dL Ur Leukocyte Esterase TRACE (NEGATIVE) Urine Microscopic RBC >100 (0-2) /HPF Urine Microscopic WBC 0-2 (0-5) /HPF Ur Epithelial Cells FEW (FEW) /HPF Urine Bacteria MODERATE (NEGATIVE) /HPF Urine Culture Reflexed YES (NO) Urine Glucose NEGATIVE (NEGATIVE) mg/dL Urine Opiates Level NEGATIVE (NEGATIVE) Ur Methadone NEGATIVE (NEGATIVE) Urine Barbiturates NEGATIVE (NEGATIVE) Ur Phencyclidine (PCP) NEGATIVE (NEGATIVE) Urine Amphetamine POSITIVE (NEGATIVE) U Benzodiazepine Level POSITIVE (NEGATIVE) Urine Cocaine NEGATIVE (NEGATIVE) Urine Marijuana (THC) NEGATIVE (NEGATIVE) Specimen Received 08/02/17 0630 08/02/17 Range/Units 06:20 WBC 7.0 (4.0-10.5) K/mm3 RBC 5.75 H (4.1-5.6) M/mm3 Hgb 16.0 (12.5-18.0) gm/dl Hct 47.8 (42-50) % MCV 83.1 (78-100) fl MCH 27.8 (26-32) pg MCHC 33.5 (32-36) g/dl RDW 13.4 (11.5-14.0) % Plt Count 283 (150-450) K/mm3 MPV 9.4 (6-9.5) fl Gran % 69.4 H (36.0-66.0) % Lymphocytes % 20.0 L (24.0-44.0) % Monocytes % 9.2 (0.0-12.0) % Eosinophils % 1.3 (0.00-5.0) % Basophils % 0.1 (0.0-0.4) % Basophils # 0.01 (0-0.4) Sodium (137-145) mmol/L Potassium (3.5-5.1) mmol/L Chloride (98-107) mEq/L Carbon Dioxide (22-30) mmol/L Anion Gap (5-15) MEQ/L BUN (9-20) mg/dl Creatinine (0.66-1.25) mg/dl Estimated GFR ML/MIN Glucose (74-106) mg/dL Calcium (8.4-10.2) mg/dL Ur Collection Type Urine Color (YELLOW) Urine Appearance (CLEAR) Urine pH (5-6) Ur Specific [place] (1.005-1.025) Urine Protein (Negative) Urine Ketones (NEGATIVE) Urine Blood (0-5) Romario/ul Urine Nitrite (NEGATIVE) Urine Bilirubin (NEGATIVE) Urine Urobilinogen (0-1) mg/dL Ur Leukocyte Esterase (NEGATIVE) Urine Microscopic RBC (0-2) /HPF Urine Microscopic WBC (0-5) /HPF Ur Epithelial Cells (FEW) /HPF Urine Bacteria (NEGATIVE) /HPF Urine Culture Reflexed (NO) Urine Glucose (NEGATIVE) mg/dL Urine Opiates Level (NEGATIVE) Ur Methadone (NEGATIVE) Urine Barbiturates (NEGATIVE) Ur Phencyclidine (PCP) (NEGATIVE) Urine Amphetamine (NEGATIVE) U Benzodiazepine Level (NEGATIVE) Urine Cocaine (NEGATIVE) Urine Marijuana (THC) (NEGATIVE) Specimen Received - Progress Counseled pt/family regarding: lab results, diagnosis, need for follow-up, rad results <LAITH MURILLO - Last Filed: 08/02/17 07:58> <LAITH JASSO - Last Filed: 08/02/17 22:33> - Progress Progress Note: 08/02/17 07:59 The patient was initially seen per Dr Jasso. Hx of renal stone disease. Sees Dr Matta and Dr Bates urology. CT shows no obstruction. Hematuria without infection on UA. Will release to follow up. He takes ibuprofen at home. (LAITH MURILLO) 08/02/17 06:30 IV LR 1 LITER/HR, ZOFRAN 4MG, BENADRYL 50MG, DILAUDID 2MG IV 08/02/17 06:59 PATIENT CARE ENDORSED TO DR MURILLO AT 0705 FOR DISPOSITION (LAITH JASSO) - Departure Time of Disposition: 08:01 Departure Disposition: Home Critical Care Time: No <LAITH MURILLO - Last Filed: 08/02/17 07:58> <LAITH JASSO - Last Filed: 08/02/17 22:33> - Departure Clinical Impression: Renal colic, Kidney stones Condition: Stable Referrals: RASHI ALVARADO JR [Primary Care Provider] - Instructions: Kidney Stones (DC) Additional Instructions: No driving today. Use ibuprofen 600mg every 6 hours for pain. Strain urine. Follow up with Dr Matta/Boaz. Prescriptions: Ibuprofen 600 mg PO Q6H PRN PRN #20 tablet PRN Reason: Pain
[2017-08-02] MEDS ORDERED: BENADRYL 50 MG/ML ONE (06:22)
[2017-08-02] MEDS ORDERED: Zofran 4 MG/2 ML VIAL ONE (06:22)
[2017-08-02] MEDS ORDERED: DILAUDID 2 MG INJECTION ONE (06:23)
[2017-08-02 06:38] LABS: BASOPHIL % 0.1 % (0.0-0.4); Basophil (Absolute #) 0.01 (0-0.4); Eosinophil % 1.3 % (0.00-5.0); Eosinophil (Absolute #) 0.09 (0-0.5); Granulocyte Absolute (ANC) 4.88 (1.4-6.9); Granulocytes % 69.4 % (36.0-66.0); Hematocrit 47.8 % (42-50); Lymphocyte (Absolute #) 1.41 (1.0-4.6); Mean Cell Volume 83.1 fl (78-100); Mean Corpuscular Hemoglobin 27.8 pg (26-32); Mean Corpuscular Hgb Concent. 33.5 g/dl (32-36); Mean Platelet Volume 9.4 fl (6-9.5); Monocyte (Absolute #) 0.65 (0.0-1.3); Monocytes % 9.2 % (0.0-12.0); Platelet Count 283 K/mm3 (150-450); Red Blood Count 5.75 M/mm3 (4.1-5.6); Red Cell Distribution Width 13.4 % (11.5-14.0)
[2017-08-02 06:47] LABS: Amphetamine,Urine POSITIVE (NEGATIVE); Appearance CLOUDY (CLEAR); Bacteria MODERATE /HPF (NEGATIVE); Barbiturate,Urine NEGATIVE (NEGATIVE); Benzodiazepine,Urine POSITIVE (NEGATIVE); Bilirubin NEGATIVE (NEGATIVE); Blood 250 Ery/ul (0-5); Cocaine,Urine NEGATIVE (NEGATIVE); Epithelial Cells FEW /HPF (FEW); Glucose NEGATIVE (NEGATIVE); Ketones NEGATIVE (NEGATIVE); Leukocyte Esterase TRACE (NEGATIVE); Methadone,Urine NEGATIVE (NEGATIVE); Nitrite NEGATIVE (NEGATIVE); Opiate,Urine NEGATIVE (NEGATIVE); PCP,Urine NEGATIVE (NEGATIVE); Protein,Urine Dip 1+ (Negative); Specific Gravity 1.015 (1.005-1.025); THC,Urine NEGATIVE (NEGATIVE); Urobilinogen NORMAL mg/dL (0-1); WBC 0-2 /HPF (0-5)
[2017-08-02 06:56] LABS: ANION GAP 17.4 MEQ/L (5-15); BLOOD UREA NITROGEN 11 mg/dl (9-20); CHLORIDE 101 mEq/L (98-107); Calcium 9.3 mg/dL (8.4-10.2); Carbon Dioxide 27 mmol/L (22-30); Creatinine 1 0.93 mg/dl (0.66-1.25); Glucose 116 mg/dL (74-106); Potassium 3.3 mmol/L (3.5-5.1); SODIUM 142 mmol/L (137-145)
[2017-08-02] MEDS ORDERED: PROTONIX 40 MG IV IV ONE ×2 (07:32→07:38)
[2017-08-02 07:46] VITALS: BP 134/99; PULSE 92
[2017-08-02] MEDS ORDERED: Ketamine HCl 50 MG/ML IV ONE (07:51)
--- NOTE | 2017-08-02 08:26 | XRAY ---
Indication: Flank pain. History of stones and Kallmans disease. Multiple contiguous axial images obtained through the abdomen and pelvis without contrast as ordered. Comparison: March 02, 2017. Lung bases demonstrates minimal bibasilar dependent atelectasis with stable subpleural cystic changes. No infiltrate or effusion. Heart is not enlarged. Noncontrasted stomach and bowel loops appear nonobstructed. Mild diffuse scattered colonic fecal debris. Normal appendix. No free fluid/air. Again nonobstructing bilateral renal micro-calculi and right renal cortical cyst. No hydronephrosis or hydroureter. Stable 1 cm right adrenal adenoma. Spleen is now enlarged measuring 15.5 cm in greatest axial dimension. Remaining liver, gallbladder, pancreas, spleen, adrenal glands, kidneys, ureters, bladder, and aorta appear unremarkable for noncontrast exam. Osseous structures intact. Impression: 1. Fecal stasis without obstruction. 2. Stable nonobstructing bilateral renal micro-calculi, right adrenal adenoma, and right renal cyst. 3. Incidental splenomegaly. 4. No acute intra-abdominal/pelvic abnormalities on this noncontrast exam. Comment: Preliminary interpretation was made by C. No critical discrepancy. CTDI 23.68
[2017-08-02 22:33] VITALS: O2SAT 100
== END 2017-08-02 08:15 | disposition home or self-care (01) ==
LOC: ED 05:37
DX: N20.0 Calculus of kidney (principal); Z87.442 Personal history of urinary calculi
CPT/HCPCS: 36000; 36415; 74176; 80048; 80307; 81000; 85025; 87086; 96360; 96374; 96375; 99284; J1170; J1200; J2405

== ENCOUNTER 2017-08-02 16:26 | Emergency (ER) | payer BC ==
[2017-08-02] MEDS ORDERED: Sodium Chloride 0.9% 1000 ML 1,000 ML IV STA (16:30)
[2017-08-02] MEDS ORDERED: Ketamine HCl 50 MG/ML IV ONE (16:32)
[2017-08-02] MEDS ORDERED: Phenergan 25 MG INJ IM ONE (16:33)
[2017-08-02] MEDS ORDERED: Phenergan 25 MG INJ ONE (16:36)
[2017-08-02] MEDS ORDERED: Sodium Chloride 0.9% 1000 ML 1,000 ML ONE ×2 (16:36→18:23)
--- NOTE | 2017-08-02 16:42 | ERPHSYRPT ---
- History of Present Illness Historian: patient, EMS (no treatments) Patient Subjective Stated Complaint: ABD PAIN RETURNS AFTER BEING SEEN THIS AM FOR SAME C/O. HX KIDNEY STONES. Triage Nursing Assessment: ARRIVES PER EMS, WALKED INTO ER PER SELF. HOLDING ABD. SKIN W/D, COLOR NORMAL, RESP EASY. ABD SOFT, TENDER RIGHT SIDE. Severity of Pain-Max: severe Severity of Pain-Current: severe Hx Tetanus, Diphtheria Vaccination/Date Given: No Hx Influenza Vaccination/Date Given: No Hx Pneumococcal Vaccination/Date Given: No <LAITH MURILLO - Last Filed: 08/02/17 18:52> <LAITH JASSO - Last Filed: 08/02/17 20:09> - History of Present Illness Time Seen by Provider: 08/02/17 16:28 Physician History: CC: right flank pain Hx: 31 y/o patient of Dr Dowd and Boaz. He has hx of recurrent kidney stone disease. He was in ER this AM. Had CT showing no obstructive uropathy. Triage at that time showed amphetamine which he denies, but he takes multiple supplements. He went home. This afternoon his right flank and abd pain returned. He vomited 12 times. Pain radiates to the right testicle. No injury. No fever or chills. No chest pain. 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 (LAITH MURILLO) Allergies/Adverse Reactions: shrimp Allergy (Mild, Verified 08/02/17 16:36) ketorolac tromethamine [From Toradol] Allergy (Verified 08/02/17 16:36) Itching Home Medications: Escitalopram Oxalate [Lexapro] 1 tab PO DAILY 02/25/16 [History] Esomeprazole Magnesium [Nexium] 40 mg PO DAILY 02/25/16 [History] Lorazepam 0.5 mg [Ativan 0.5 MG] 1 mg PO TID PRN 02/25/16 [History] Temazepam [Restoril] 30 mg PO DAILY PRN 02/25/16 [History] - Review of Systems Constitutional: No Fever, No Chills Eyes: No Symptoms Ears, Nose, & Throat: No Symptoms Respiratory: No Cough, No Dyspnea Cardiac: No Chest Pain Abdominal/Gastrointestinal: Abdominal Pain, Nausea, Vomiting, No Diarrhea Genitourinary Symptoms: Hematuria, Flank Pain (radiating to the right groin), No Dysuria, No Testicle Pain Musculoskeletal: Back Pain Skin: No Rash Neurological: No Headache All Other Systems: Reviewed and Negative <MURILLOLAITH - Last Filed: 08/02/17 18:52> - Past Medical History Pertinent Past Medical History: Yes Neurological History: Migraines ENT History: No Pertinent History Cardiac History: No Pertinent History Respiratory History: No Pertinent History Endocrine Medical History: No Pertinent History Musculoskeletal History: No Pertinent History GI Medical History: GERD History: Renal Disease Psycho-Social History: Anxiety, Depression Male Reproductive Disorders: No Pertinent History Other Medical History: Kallmann's Disease - frequent kidney stones. freq abd pain, n&v - Past Surgical History Past Surgical History: Yes Neuro Surgical History: No Pertinent History Cardiac: No Pertinent History Respiratory: No Pertinent History Gastrointestinal: No Pertinent History Genitourinary: Kidney Surgery Musculoskeletal: No Pertinent History Male Surgical History: No Pertinent History Other Surgical History: nephrolithiasis removal - egd - colonoscopy wisdom teeth removed -lipoma removed from back - Social History Smoking Status: Never smoker Exposure to second hand smoke: No Drug Use: none Patient Lives Alone: No <LIDIAERIKA - Last Filed: 08/02/17 18:52> - Physical Exam General Appearance: alert Eye Exam: PERRL/EOMI Ears, Nose, Throat Exam: normal ENT inspection, moist mucous membranes Neck Exam: normal inspection, non-tender, supple Respiratory Exam: normal breath sounds Cardiovascular Exam: regular rate/rhythm Gastrointestinal/Abdomen Exam: soft, No tenderness, No distention Male Genitalia Exam: normal genitalia Back Exam: normal inspection, CVA tenderness (right) Extremity Exam: normal inspection, normal range of motion Neurologic Exam: alert, oriented x 3, 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, 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, sensation nml, No motor deficits Skin Exam: warm, dry, No rash SpO2 Interpretation: normal SpO2: 95 Oxygen Delivery: Room Air <MURILLOLAITH - Last Filed: 08/02/17 18:52> - Nursing Vital Signs Nursing Vital Signs: Initial Vital Signs Temperature 97.5 F 08/02/17 16:27 Pulse Rate 105 H 08/02/17 16:27 Respiratory Rate 18 08/02/17 16:27 O2 Sat by Pulse Oximetry 95 08/02/17 16:27 Pain Scale Pain Intensity 5 - Course Nursing assessment & vital signs reviewed: Yes EKG Interpreted by Me: RATE (90), Sinus Rhythm, NORMAL AXIS, NORMAL INTERVALS ( QTc 448), Non-specific ST Changes (unchanged from prior tracing dated 01-15-17) - Radiology Exams 2 view abd X-ray Interpretation: Reviewed by me (no obstru, renal parenchymal stones, unchanged pelvic calcifications) <LAITH MURILLO - Last Filed: 08/02/17 18:52> Ordered Tests: Active Orders 24 hr Category Date Time Status Clean Catch Urine Specimen STAT Care 08/02/17 16:30 Active EKG-ER Only STAT Care 08/02/17 16:30 Active IV Insertion STAT Care 08/02/17 16:30 Active ABDOMEN 2 VIEW Stat Exams 08/02/17 18:18 Completed CBC W DIFF Stat Lab 08/02/17 16:44 Completed CMP Stat Lab 08/02/17 16:44 Completed LIPASE Stat Lab 08/02/17 16:44 Completed UA W/RFX UR CULTURE Stat Lab 08/02/17 17:41 Completed Urine Triage Profile Stat Lab 08/02/17 17:41 Completed Medication Summary Generic Name Dose Route Start Last Admin Trade Name Freq PRN Reason Stop Dose Admin Sodium Chloride 1,000 mls @ 250 mls/hr 08/02/17 18:30 08/02/17 18:35 Sodium Chloride 0.9% 1000 Ml IV 09/01/17 18:29 250 mls/hr .Q4H KRAIG Administration Discontinued Medications Generic Name Dose Route Start Last Admin Trade Name Freq PRN Reason Stop Dose Admin Haloperidol Lactate 5 mg 08/02/17 18:18 08/02/17 18:27 Haldol 5 Mg IM 08/02/17 18:19 5 mg STAT ONE Administration Haloperidol Lactate Confirm 08/02/17 18:23 Haldol 5 Mg Administered 08/02/17 18:24 Dose 5 mg .ROUTE .STK-MED ONE Hydromorphone HCl 1 mg 08/02/17 18:18 08/02/17 18:27 Hydromorphone 1 Mg/Ml Ampule IV 08/02/17 18:19 1 mg STAT ONE Administration Hydromorphone HCl Confirm 08/02/17 18:23 Dilaudid 2 Mg Injection Administered 08/02/17 18:24 Dose 2 mg .ROUTE .STK-MED ONE Sodium Chloride 1,000 mls @ 999 mls/hr 08/02/17 16:30 08/02/17 16:36 Sodium Chloride 0.9% 1000 Ml IV 08/02/17 17:30 999 mls/hr .Q1H1M STA Administration Ketamine HCl 25 mg/ Sodium 50.5 mls @ 303 mls/hr 08/02/17 16:45 08/02/17 16: 44 Chloride IV 08/02/17 16:54 303 mls/hr NOW ONE Administration Sodium Chloride Confirm 08/02/17 16:36 Sodium Chloride 0.9% 1000 Ml Administered 08/02/17 16:37 Dose 1,000 mls @ ud .ROUTE .STK-MED ONE Ondansetron HCl 4 mg 08/02/17 19:43 08/02/17 19:49 Zofran Odt 4 Mg PO 08/02/17 19:44 4 mg STAT ONE Administration Ondansetron HCl Confirm 08/02/17 19:46 Zofran Odt 4 Mg Administered 08/02/17 19:47 Dose 4 mg .ROUTE .STK-MED ONE Promethazine HCl 25 mg 08/02/17 16:33 08/02/17 16:36 Phenergan 25 Mg Inj IM 08/02/17 16:34 25 mg STAT ONE Administration Promethazine HCl Confirm 08/02/17 16:36 Phenergan 25 Mg Inj Administered 08/02/17 16:37 Dose 25 mg .ROUTE .STK-MED ONE Lab/Rad Data: Laboratory Result Diagrams 08/02/17 16:44 08/02/17 16:44 Laboratory Results 08/02/17 08/02/17 08/02/17 Range/Units 17:41 17:41 16:44 WBC (4.0-10.5) K/mm3 RBC (4.1-5.6) M/mm3 Hgb (12.5-18.0) gm/dl Hct (42-50) % MCV (78-100) fl MCH (26-32) pg MCHC (32-36) g/dl RDW (11.5-14.0) % Plt Count (150-450) K/mm3 MPV (6-9.5) fl Gran % (36.0-66.0) % Lymphocytes % (24.0-44.0) % Monocytes % (0.0-12.0) % Eosinophils % (0.00-5.0) % Basophils % (0.0-0.4) % Basophils # (0-0.4) Sodium 144 (137-145) mmol/L Potassium 3.8 (3.5-5.1) mmol/L Chloride 105 (98-107) mEq/L Carbon Dioxide 28 (22-30) mmol/L Anion Gap 14.5 (5-15) MEQ/L BUN 11 (9-20) mg/dl Creatinine 1.14 (0.66-1.25) mg/dl Estimated GFR > 60 ML/MIN Glucose 84 (74-106) mg/dL Calcium 9.3 (8.4-10.2) mg/dL Total Bilirubin 0.20 (0.2-1.3) mg/d? AST 27 (17-59) U/L ALT 42 (0-50) U/L Alkaline Phosphatase 73 (38-126) U/L Serum Total Protein 6.6 (6.3-8.2) mg/dl Albumin 3.9 (3.5-5.0) g/dl Lipase 120 (23-300) U/L Ur Collection Type VOID Urine Color YELLOW (YELLOW) Urine Appearance SLIGHTLY CLOUDY (CLEAR) Urine pH 5.0 (5-6) Ur Specific [place] 1.025 (1.005-1.025) Urine Protein 30 (Negative) Urine Ketones NEGATIVE (NEGATIVE) Urine Blood 250 (0-5) [place]amrio/ul Urine Nitrite NEGATIVE (NEGATIVE) Urine Bilirubin NEGATIVE (NEGATIVE) Urine Urobilinogen NORMAL (0-1) mg/dL Ur Leukocyte Esterase 1+ (NEGATIVE) Urine Culture Reflexed NO (NO) Urine Glucose NEGATIVE (NEGATIVE) mg/dL Urine Opiates Level POSITIVE (NEGATIVE) Ur Methadone NEGATIVE (NEGATIVE) Urine Barbiturates NEGATIVE (NEGATIVE) Ur Phencyclidine (PCP) NEGATIVE (NEGATIVE) Urine Amphetamine POSITIVE (NEGATIVE) U Benzodiazepine Level POSITIVE (NEGATIVE) Urine Cocaine NEGATIVE (NEGATIVE) Urine Marijuana (THC) NEGATIVE (NEGATIVE) Specimen Received 08/02/17 1745 08/02/17 Range/Units 16:44 WBC 6.9 (4.0-10.5) K/mm3 RBC 5.49 (4.1-5.6) M/mm3 Hgb 15.1 (12.5-18.0) gm/dl Hct 46.0 (42-50) % MCV 83.8 (78-100) fl MCH 27.5 (26-32) pg MCHC 32.8 (32-36) g/dl RDW 13.4 (11.5-14.0) % Plt Count 292 (150-450) K/mm3 MPV 9.7 H (6-9.5) fl Gran % 60.5 (36.0-66.0) % Lymphocytes % 26.8 (24.0-44.0) % Monocytes % 10.8 (0.0-12.0) % Eosinophils % 1.6 (0.00-5.0) % Basophils % 0.3 (0.0-0.4) % Basophils # 0.02 (0-0.4) Sodium (137-145) mmol/L Potassium (3.5-5.1) mmol/L Chloride (98-107) mEq/L Carbon Dioxide (22-30) mmol/L Anion Gap (5-15) MEQ/L BUN (9-20) mg/dl Creatinine (0.66-1.25) mg/dl Estimated GFR ML/MIN Glucose (74-106) mg/dL Calcium (8.4-10.2) mg/dL Total Bilirubin (0.2-1.3) mg/d? AST (17-59) U/L ALT (0-50) U/L Alkaline Phosphatase (38-126) U/L Serum Total Protein (6.3-8.2) mg/dl Albumin (3.5-5.0) g/dl Lipase (23-300) U/L Ur Collection Type Urine Color (YELLOW) Urine Appearance (CLEAR) Urine pH (5-6) Ur Specific [place] (1.005-1.025) Urine Protein (Negative) Urine Ketones (NEGATIVE) Urine Blood (0-5) Romario/ul Urine Nitrite (NEGATIVE) Urine Bilirubin (NEGATIVE) Urine Urobilinogen (0-1) mg/dL Ur Leukocyte Esterase (NEGATIVE) Urine Culture Reflexed (NO) Urine Glucose (NEGATIVE) mg/dL Urine Opiates Level (NEGATIVE) Ur Methadone (NEGATIVE) Urine Barbiturates (NEGATIVE) Ur Phencyclidine (PCP) (NEGATIVE) Urine Amphetamine (NEGATIVE) U Benzodiazepine Level (NEGATIVE) Urine Cocaine (NEGATIVE) Urine Marijuana (THC) (NEGATIVE) Specimen Received - Progress Counseled pt/family regarding: lab results, diagnosis, need for follow-up, rad results <LAITH MURILLO - Last Filed: 08/02/17 18:52> - Progress Progress: improved <LAITH JASSO - Last Filed: 08/02/17 20:09> - Progress Progress Note: 08/02/17 18:52 Pt had recurrent pain and vomiting. Labs and xray reassuring. He has dropped urine on the floor. He has vomited everywhere. Urine confirmatory drug test sent as he denies any amp use. He was given IVF, haldol IM, dilaudid. Will watch for a while before deciding disposition. Report to Dr Jasso for further care and disposition. (LAITH MURILLO) THE RESULTS OF ABDOMINAL PELVIC CT SCAN WITH STABLE NONOBSTRUCTIVE BILATERAL RENAL MICRO-CALCULI AND RIGHT RENAL CORTICAL CYST DISCUSSED WITH PATIENT IN DETAIL, ADVISED PATIENT AT 1915 THERE IS NO INDICATION FOR PAIN MEDICATIONS 08/02/17 19:22 RECEIVING NORMAL SALINE BOLUS 1000ML OVER 1 HOUR 08/02/17 19:37 (LAITH JASSO) - Departure Critical Care Time: No <LAITH MURILLO - Last Filed: 08/02/17 18:52> - Departure Time of Disposition: 20:08 Departure Disposition: Home <LAITH JASSO - Last Filed: 08/02/17 20:09> - Departure Clinical Impression: Right flank pain, Vomiting, Renal colic on right side Condition: Good Referrals: RASHI ALVARADO JR [Primary Care Provider] - Additional Instructions: DRINK PLENTY OF FLUIDS. BEGIN A CLEAR LIQUID DIET FOR 24 HOURS, THEN ADVANCE YOUR DIET TOLERATED, CONTINUE MOTRIN 600MG EVERY 6 HOURS NEEDED FOR PAIN DISCOMFORT. ZOFRAN 4MG EVERY 4 HOURS FOR NAUSEA. CONSULT DR BONILLA/BOAZ IN 2 DAYS FOR FOLLOWUP. Prescriptions: Ondansetron ODT 4 MG [Zofran Odt 4 mg] 4 mg PO Q4H PRN PRN #10 tab.rapdis PRN Reason: Nausea
[2017-08-02] MEDS ORDERED: SODIUM CHLORIDE 0.9% IV ONE (16:45)
[2017-08-02] MEDS ORDERED: KETAMINE HCL IV ONE (16:45)
[2017-08-02 16:47] LABS: BASOPHIL % 0.3 % (0.0-0.4); Basophil (Absolute #) 0.02 (0-0.4); Eosinophil % 1.6 % (0.00-5.0); Eosinophil (Absolute #) 0.11 (0-0.5); Granulocytes % 60.5 % (36.0-66.0); Hemoglobin 15.1 gm/dl (12.5-18.0); Lymphocyte (Absolute #) 1.86 (1.0-4.6); Lymphocytes % 26.8 % (24.0-44.0); Mean Cell Volume 83.8 fl (78-100); Mean Corpuscular Hemoglobin 27.5 pg (26-32); Mean Corpuscular Hgb Concent. 32.8 g/dl (32-36); Mean Platelet Volume 9.7 fl (6-9.5); Monocyte (Absolute #) 0.75 (0.0-1.3); Monocytes % 10.8 % (0.0-12.0); Platelet Count 292 K/mm3 (150-450); Red Blood Count 5.49 M/mm3 (4.1-5.6); Red Cell Distribution Width 13.4 % (11.5-14.0); White Blood Count 6.9 K/mm3 (4.0-10.5)
[2017-08-02 17:04] LABS: ALBUMIN 3.9 g/dl (3.5-5.0); ALKALINE PHOSPHATASE 73 U/L (38-126); ANION GAP 14.5 MEQ/L (5-15); BLOOD UREA NITROGEN 11 mg/dl (9-20); CHLORIDE 105 mEq/L (98-107); Calcium 9.3 mg/dL (8.4-10.2); Carbon Dioxide 28 mmol/L (22-30); Creatinine 1 1.14 mg/dl (0.66-1.25); Glucose 84 mg/dL (74-106); LIPASE 120 U/L (23-300); Potassium 3.8 mmol/L (3.5-5.1); SGOT/AST 27 U/L (17-59); SGPT/ALT 42 U/L (0-50); SODIUM 144 mmol/L (137-145); Total Protein 6.6 mg/dl (6.3-8.2)
[2017-08-02 17:58] LABS: Appearance SLIGHTLY CLOUDY (CLEAR); Bilirubin NEGATIVE (NEGATIVE); Blood 250 Ery/ul (0-5); Glucose NEGATIVE (NEGATIVE); Ketones NEGATIVE (NEGATIVE); Leukocyte Esterase 1+ (NEGATIVE); Nitrite NEGATIVE (NEGATIVE); Protein,Urine Dip 30 (Negative); Specific Gravity 1.025 (1.005-1.025); Urobilinogen NORMAL mg/dL (0-1)
[2017-08-02 18:03] LABS: Amphetamine,Urine POSITIVE (NEGATIVE); Barbiturate,Urine NEGATIVE (NEGATIVE); Benzodiazepine,Urine POSITIVE (NEGATIVE); Cocaine,Urine NEGATIVE (NEGATIVE); Methadone,Urine NEGATIVE (NEGATIVE); Opiate,Urine POSITIVE (NEGATIVE); PCP,Urine NEGATIVE (NEGATIVE); THC,Urine NEGATIVE (NEGATIVE)
[2017-08-02] MEDS ORDERED: Haldol 5 MG IM ONE (18:18)
[2017-08-02] MEDS ORDERED: Hydromorphone 1 mg/ml Ampule IV ONE (18:18)
[2017-08-02] MEDS ORDERED: Haldol 5 MG ONE (18:23)
[2017-08-02] MEDS ORDERED: DILAUDID 2 MG INJECTION ONE (18:23)
[2017-08-02] MEDS ORDERED: Sodium Chloride 0.9% 1000 ML 1,000 ML IV SCH (18:30)
--- NOTE | 2017-08-02 19:24 | XRAY ---
Indication: Nausea and vomiting. Comparison: KUB April 26, 2017. CT abdomen/pelvis performed earlier in the day. 2 views of the abdomen again nonacute and nonobstructed with mild diffuse scattered colonic fecal debris and CT proven bilateral renal micro-calculi. No free air. Remaining solid organs and osseous structures unremarkable. Impression: Again fecal stasis without obstruction and bilateral renal micro-calculi.
[2017-08-02] MEDS ORDERED: ZOFRAN ODT 4 MG PO ONE (19:43)
[2017-08-02] MEDS ORDERED: ZOFRAN ODT 4 MG ONE (19:46)
[2017-08-02 20:39] VITALS: BP 122/80; PULSE 90; O2SAT 98
== END 2017-08-02 20:37 | disposition home or self-care (01) ==
LOC: ED 16:26
DX: R10.9 Unspecified abdominal pain (principal); R11.10 Vomiting, unspecified; N23 Unspecified renal colic
CPT/HCPCS: 36000; 36415; 74021; 80053; 80307; 81002; 83690; 85025; 93005; 96360; 96365; 96366; 96372; 96375; 99285; J1170; J1630; J2550; Q0162

== ENCOUNTER 2017-10-01 05:15 | Emergency (ER) | payer BC ==
[2017-10-01 05:32] VITALS: PULSE 98; O2SAT 97
[2017-10-01] MEDS ORDERED: Adacel Vial IM ONE ×2 (05:35→05:38)
[2017-10-01] MEDS ORDERED: ZOFRAN ODT 4 MG PO PRN (05:36)
[2017-10-01] MEDS ORDERED: ZOFRAN ODT 4 MG ONE (05:38)
--- NOTE | 2017-10-01 05:59 | ERPHSYRPT ---
- History of Present Illness Time Seen by Provider: 10/01/17 06:21 Source: patient Exam Limitations: no limitations Patient Subjective Stated Complaint: Pt arrives to ER with c/o multiple superficial lacerations from breaking window to get into house d/t locked himself out. States also climbed through window and somehow hit right ribs and right side of head when entering home. Pt state tetanus is not UTD. Pt lacerations include bilateral forearms, abdomen, head and bilateral lower extremities. Triage Nursing Assessment: pt has peculiar presentation but injuries are consistent with story. A&Ox4. lacerations appear superficial. Cleansed with NS and open to air for physician assessment. Physician History: The patient is a 32-year-old male complains that he was locked out of his house. He was unable to obtain a daily from his ex-. He picked up a large stone and with both hands using to break a window but lost his balance with the stone and fell through the window. He states he has pain to his right ribs. He has multiple superficial lacerations on his legs, forearms, torso, and face. He states he also was stunned when he fell through the window. His last tetanus vaccination was many years ago and is unknown the exact date. His past medical history is significant for low testosterone, depression, and kidney stones. Occurred: just prior to arrival Reason for Fall: tripped, fell from standing pos Injuries/Pain Location: face, upper extremity, abdomen, lower extremity Loss of Consciousness: no loss of consciousness, dazed Quality: aching Severity of Pain-Max: mild Severity of Pain-Current: mild Modifying Factors: Improves With: nothing (he said he is also nauseated so he ga yet) Associated Symptoms (Fall): nausea ( that spot) Allergies/Adverse Reactions: shrimp Allergy (Mild, Verified 10/01/17 05:32) ketorolac tromethamine [From Toradol] Allergy (Verified 10/01/17 05:32) Itching Home Medications: Escitalopram Oxalate [Lexapro] 1 tab PO DAILY 02/25/16 [History] Esomeprazole Magnesium [Nexium] 40 mg PO DAILY 02/25/16 [History] Lorazepam 0.5 mg [Ativan 0.5 MG] 1 mg PO TID PRN 02/25/16 [History] Temazepam [Restoril] 30 mg PO DAILY PRN 02/25/16 [History] Testosterone Cypionate 150 mg IM WEEKLY 10/01/17 [History] Hx Tetanus, Diphtheria Vaccination/Date Given: No Hx Influenza Vaccination/Date Given: No Hx Pneumococcal Vaccination/Date Given: No - Review of Systems Constitutional: No Fever, No Chills Eyes: No Symptoms Ears, Nose, & Throat: No Symptoms Respiratory: No Cough, No Dyspnea Cardiac: No Chest Pain, No Edema, No Syncope Abdominal/Gastrointestinal: Nausea Genitourinary Symptoms: No Dysuria Musculoskeletal: Fall, Injury Skin: Other (abrasions), No Rash Neurological: No Dizziness, No Focal Weakness, No Sensory Changes Psychological: No Symptoms Endocrine: No Symptoms Hematologic/Lymphatic: No Symptoms Immunological/Allergic: No Symptoms All Other Systems: Reviewed and Negative - Past Medical History Pertinent Past Medical History: Yes Neurological History: Migraines ENT History: No Pertinent History Cardiac History: No Pertinent History Respiratory History: No Pertinent History Endocrine Medical History: No Pertinent History Musculoskeletal History: No Pertinent History GI Medical History: GERD History: Renal Disease Psycho-Social History: Anxiety, Depression Male Reproductive Disorders: No Pertinent History Other Medical History: Kallmann's Disease - frequent kidney stones. freq abd pain, n&v - Past Surgical History Past Surgical History: Yes Neuro Surgical History: No Pertinent History Cardiac: No Pertinent History Respiratory: No Pertinent History Gastrointestinal: No Pertinent History Genitourinary: Kidney Surgery Musculoskeletal: No Pertinent History Male Surgical History: No Pertinent History Other Surgical History: nephrolithiasis removal - egd - colonoscopy wisdom teeth removed -lipoma removed from back - Social History Smoking Status: Never smoker Exposure to second hand smoke: Yes Drug Use: none Patient Lives Alone: No - Nursing Vital Signs Nursing Vital Signs: Initial Vital Signs Temperature 98.4 F 10/01/17 05:22 Pulse Rate 98 H 10/01/17 05:22 Respiratory Rate 18 10/01/17 05:22 Blood Pressure 163/101 10/01/17 05:22 O2 Sat by Pulse Oximetry 97 10/01/17 05:22 Pain Scale Pain Intensity 9 - Beatrice Coma Score Best Eye Response ([place]): (4) open spontaneously Best Verbal Response ([place]): (5) oriented Best Motor Response ([place]): (6) obeys commands [place] Total: 15 - Physical Exam General Appearance: no apparent distress, alert Head Injury: no evidence of injury Eye Exam: PERRL/EOMI ENT Exam: airway nml Neck Exam: normal inspection, No tenderness Respiratory/Chest Exam: rib tenderness (right lower lateral) Cardiovascular Exam: normal heart sounds, regular rate/rhythm Gastrointestinal Exam: soft, No tenderness, No distention, No guarding, No ecchymosis Rectal Exam: not done Back Exam: normal inspection, No vertebral tenderness Extremity Exam: normal inspection, normal range of motion, pelvis stable, No deformities Neurologic Exam: alert, oriented x 3, cooperative, sensation nml, No motor deficits Skin Exam: abrasion (multiple superficial abrasions to face, abdomen, bilateral forearms, and bilateral thighs.), laceration (One small 0.5 cm lac to right forearm.) SpO2 Interpretation: normal SpO2: 97 Oxygen Delivery: Room Air - Radiology Exams Right Ribs X-ray Interpretation: Interpreted by me, Negative, No Fracture Ordered Tests: Active Orders 24 hr Category Date Time Status Wound Care STAT Care 10/01/17 06:04 Ordered RIBS UNILATERAL Stat Exams 10/01/17 05:44 Ordered Medication Summary Generic Name Dose Route Start Last Admin Trade Name Freq PRN Reason Stop Dose Admin Ondansetron HCl 4 mg 10/01/17 05:36 10/01/17 05:44 Zofran Odt 4 Mg PO 10/31/17 05:35 4 mg Q4H PRN PRN Administration NAUSEA/VOMITING Discontinued Medications Generic Name Dose Route Start Last Admin Trade Name Freq PRN Reason Stop Dose Admin Diphtheria/Tetanus/Acell Pertussis 0.5 ml 10/01/17 05:35 10/01/17 05:43 Adacel Vial IM 10/01/17 05:36 0.5 ml .ONCE ONE Administration Diphtheria/Tetanus/Acell Pertussis Confirm 10/01/17 05:38 Adacel Vial Administered 10/01/17 05:39 Dose 0.5 ml IM .STK-MED ONE - Progress Progress: unchanged - Departure Time of Disposition: 06:22 Departure Disposition: Home Clinical Impression: Fall, Abrasions of multiple sites, Laceration Condition: Stable Critical Care Time: No Referrals: RASHI ALVARADO JR [Primary Care Provider] - Additional Instructions: You have multiple abrasions and one small superficial laceration. The laceration was closed with a Steri-Strip. Do not remove the Steri-Strip. It will fall off by itself. You were given a tetanus vaccination in the ER. You were given Tylenol 1000 mg in the ER. You were also given Zofran 4 mg. Follow- up as needed.
[2017-10-01] MEDS ORDERED: TYLENOL EXTRA STRENGTH 500 MG PO STA (06:23)
[2017-10-01] MEDS ORDERED: TYLENOL EXTRA STRENGTH 500 MG ONE (06:27)
[2017-10-01 06:37] VITALS: BP 140/86
--- NOTE | 2017-10-01 08:45 | XRAY ---
Indication: Pain following fall. Comparison: None 2 views of the right ribs demonstrates CT proven bilateral renal micro-calculi. No other bony, articular, or soft tissue abnormalities.
== END 2017-10-01 06:46 | disposition home or self-care (01) ==
LOC: ED 05:15
DX: S51.811A Laceration without foreign body of right forearm, initial encounter (principal); S00.81XA Abrasion of other part of head, initial encounter; S30.811A Abrasion of abdominal wall, initial encounter; S70.312A Abrasion, left thigh, initial encounter; S70.311A Abrasion, right thigh, initial encounter; R07.81 Pleurodynia; R11.0 Nausea; W13.4XXA Fall from, out of or through window, initial encounter; W01.110A Fall on same level from slipping, tripping and stumbling with subsequent striking against sharp glass, initial encounter; Y92.009 Unspecified place in unspecified non-institutional (private) residence as the place of occurrence of the external cause
CPT/HCPCS: 71100; 90471; 90715; 99283; 99284; Q0162; A9270-GY

== ENCOUNTER 2017-11-02 01:52 | Emergency (ER) | payer BC ==
[2017-11-02] MEDS ORDERED: Sodium Chloride 0.9% 1000 ML 1,000 ML IV STA ×3 (02:10→03:29)
[2017-11-02] MEDS ORDERED: Phenergan 25 MG INJ IM ONE (02:13)
--- NOTE | 2017-11-02 02:14 | ERPHSYRPT ---
- History of Present Illness Time Seen by Provider: 11/02/17 02:10 Historian: patient, family Exam Limitations: no limitations Physician History: pt reports frequent history of recurring kidney stones with similar pain sometimes requiring procedure for blockage last one in July of this year- US is not available for this here ( not one of the allowed emergency call-ins) discussed with pt the risks and benefits of CT , including radiation risk and he prefers to proceed abd is nontender to palpation pt is vomiting Timing/Duration: today Activities at Onset: none Quality: sharpness, stabbing, throbbing Abdominal Pain Onset Location: LLQ, flank Pain Radiation: LLQ, flank Severity of Pain-Max: moderate Severity of Pain-Current: moderate Previous symptoms: same symptoms as today, recently seen, recently treated Allergies/Adverse Reactions: shrimp Allergy (Mild, Verified 10/01/17 05:32) ketorolac tromethamine [From Toradol] Allergy (Verified 10/01/17 05:32) Itching Home Medications: Escitalopram Oxalate [Lexapro] 1 tab PO DAILY 02/25/16 [History] Esomeprazole Magnesium [Nexium] 40 mg PO DAILY 02/25/16 [History] Lorazepam 0.5 mg [Ativan 0.5 MG] 1 mg PO TID PRN 02/25/16 [History] Temazepam [Restoril] 30 mg PO DAILY PRN 02/25/16 [History] Testosterone Cypionate 150 mg IM WEEKLY 10/01/17 [History] Hx Tetanus, Diphtheria Vaccination/Date Given: No Hx Influenza Vaccination/Date Given: No Hx Pneumococcal Vaccination/Date Given: No - Review of Systems Constitutional: No Fever, No Chills Eyes: No Symptoms Ears, Nose, & Throat: No Symptoms Respiratory: No Cough, No Dyspnea Cardiac: No Chest Pain, No Edema, No Syncope Abdominal/Gastrointestinal: Abdominal Pain, Nausea, Vomiting, No Diarrhea Genitourinary Symptoms: Hesitancy, Flank Pain, No Dysuria Musculoskeletal: No Back Pain, No Neck Pain Skin: No Rash Neurological: No Dizziness, No Focal Weakness, No Sensory Changes Psychological: No Symptoms Endocrine: No Symptoms All Other Systems: Reviewed and Negative - Past Medical History Pertinent Past Medical History: Yes Neurological History: Migraines ENT History: No Pertinent History Cardiac History: No Pertinent History Respiratory History: No Pertinent History Endocrine Medical History: No Pertinent History Musculoskeletal History: No Pertinent History GI Medical History: GERD History: Renal Disease Psycho-Social History: Anxiety, Depression Male Reproductive Disorders: No Pertinent History Other Medical History: Kallmann's Disease - frequent kidney stones. freq abd pain, n&v - Past Surgical History Past Surgical History: Yes Neuro Surgical History: No Pertinent History Cardiac: No Pertinent History Respiratory: No Pertinent History Gastrointestinal: No Pertinent History Genitourinary: Kidney Surgery Musculoskeletal: No Pertinent History Male Surgical History: No Pertinent History Other Surgical History: nephrolithiasis removal - egd - colonoscopy wisdom teeth removed -lipoma removed from back - Social History Smoking Status: Never smoker Exposure to second hand smoke: Yes Drug Use: none Patient Lives Alone: No - Nursing Vital Signs Nursing Vital Signs: Initial Vital Signs Temperature 98.8 F 11/02/17 01:59 Pulse Rate 115 H 11/02/17 01:59 Respiratory Rate 20 11/02/17 01:59 Blood Pressure 170/111 11/02/17 01:59 O2 Sat by Pulse Oximetry 98 11/02/17 01:59 Pain Scale Pain Intensity 8 - Physical Exam General Appearance: no apparent distress, alert Eye Exam: PERRL/EOMI, eyes nml inspection Ears, Nose, Throat Exam: normal ENT inspection, pharynx normal, moist mucous membranes Neck Exam: normal inspection, non-tender, supple, full range of motion Respiratory Exam: normal breath sounds, lungs clear, No respiratory distress Cardiovascular Exam: regular rate/rhythm, normal heart sounds Gastrointestinal/Abdomen Exam: soft, No tenderness, No mass Back Exam: normal inspection, normal range of motion, No CVA tenderness, No vertebral tenderness Extremity Exam: normal inspection, normal range of motion, pelvis stable Neurologic Exam: alert, oriented x 3, cooperative, normal mood/affect, nml cerebellar function, sensation nml, No motor deficits Skin Exam: normal color, warm, dry - Course Nursing assessment & vital signs reviewed: Yes - CT Exams Abdomen/Pelvis CT Interpretation: Tele-radiologist Report, No appendicitis, Other (multiple nonobstructing kidney stones) Ordered Tests: Active Orders 24 hr Category Date Time Status Clean Catch Urine Specimen STAT Care 11/02/17 02:10 Active IV Insertion STAT Care 11/02/17 02:10 Active NPO (ED) STAT Care 11/02/17 02:10 Active Strain Urine .as ordered Care 11/02/17 03:28 Active ABDOMEN AND PELVIS W/0 CONTRAS [CT] Stat Exams 11/02/17 02:11 Taken AMYLASE Stat Lab 11/02/17 02:15 Completed CBC W DIFF Stat Lab 11/02/17 02:15 Completed CMP Stat Lab 11/02/17 02:15 Completed CULTURE,URINE Stat Lab 11/02/17 03:02 Received LIPASE Stat Lab 11/02/17 02:15 Completed Lactic Acid Stat Lab 11/02/17 02:10 Completed Lactic Acid Stat Lab 11/02/17 04:38 Ordered Lactic Acid Stat Lab 11/02/17 04:42 Ordered UA W/ MICROSCOPIC Stat Lab 11/02/17 03:02 Completed Medication Summary Discontinued Medications Generic Name Dose Route Start Last Admin Trade Name Freq PRN Reason Stop Dose Admin Diphenhydramine HCl 25 mg 11/02/17 02:35 11/02/17 02:46 Benadryl 50 Mg/Ml IV 11/02/17 02:36 25 mg STAT ONE Administration Diphenhydramine HCl Confirm 11/02/17 02:43 Benadryl 50 Mg/Ml Administered 11/02/17 02:44 Dose 50 mg .ROUTE .STK-MED ONE Diphenhydramine HCl 25 mg 11/02/17 03:34 11/02/17 03:48 Benadryl 50 Mg/Ml IV 11/02/17 03:35 25 mg STAT ONE Administration Diphenhydramine HCl Confirm 11/02/17 03:43 Benadryl 50 Mg/Ml Administered 11/02/17 03:44 Dose 50 mg .ROUTE .STK-MED ONE Hydromorphone HCl 1 mg 11/02/17 04:57 Hydromorphone 1 Mg/Ml Ampule IV 11/02/17 04:58 STAT ONE Sodium Chloride 1,000 mls @ 999 mls/hr 11/02/17 02:10 11/02/17 02:24 Sodium Chloride 0.9% 1000 Ml IV 11/02/17 03:10 999 mls/hr .Q1H1M STA Administration Sodium Chloride Confirm 11/02/17 02:18 Sodium Chloride 0.9% 1000 Ml Administered 11/02/17 02:19 Dose 1,000 mls @ ud .ROUTE .STK-MED ONE Sodium Chloride 1,000 mls @ 999 mls/hr 11/02/17 02:42 11/02/17 03:38 Sodium Chloride 0.9% 1000 Ml IV 11/02/17 03:42 999 mls/hr .Q1H1M STA Administration Sodium Chloride 1,000 mls @ 999 mls/hr 11/02/17 03:29 Sodium Chloride 0.9% 1000 Ml IV 11/02/17 04:29 .Q1H1M STA Sodium Chloride Confirm 11/02/17 03:34 Sodium Chloride 0.9% 1000 Ml Administered 11/02/17 03:35 Dose 1,000 mls @ ud .ROUTE .STK-MED ONE Morphine Sulfate 4 mg 11/02/17 02:35 11/02/17 02:46 Morphine Sulfate 4 Mg Inj IV 11/02/17 02:36 4 mg STAT ONE Administration Morphine Sulfate Confirm 11/02/17 02:43 Morphine Sulfate 4 Mg Inj Administered 11/02/17 02:44 Dose 4 mg .ROUTE .STK-MED ONE Morphine Sulfate 8 mg 11/02/17 03:34 11/02/17 03:51 Morphine Sulfate 10 Mg/Ml IV 11/02/17 03:35 8 mg STAT ONE Administration Morphine Sulfate Confirm 11/02/17 03:44 Morphine Sulfate 4 Mg Inj Administered 11/02/17 03:45 Dose 8 mg .ROUTE .STK-MED ONE Promethazine HCl 50 mg 11/02/17 02:13 11/02/17 02:24 Phenergan 25 Mg Inj IM 11/02/17 02:14 50 mg STAT ONE Administration Promethazine HCl Confirm 11/02/17 02:18 Phenergan 25 Mg Inj Administered 11/02/17 02:19 Dose 50 mg .ROUTE .STK-MED ONE Tamsulosin HCl 0.4 mg 11/02/17 03:27 11/02/17 03:38 Flomax 0.4 Mg PO 11/02/17 03:28 0.4 mg STAT ONE Administration Tamsulosin HCl Confirm 11/02/17 03:34 Flomax 0.4 Mg Administered 11/02/17 03:35 Dose 0.4 mg .ROUTE .STK-MED ONE Lab/Rad Data: Laboratory Result Diagrams 11/02/17 02:15 11/02/17 02:15 Laboratory Results 11/02/17 11/02/17 11/02/17 Range/Units 03:02 02:15 02:15 WBC 11.8 H (4.0-10.5) K/mm3 RBC 6.30 H* (4.1-5.6) M/mm3 Hgb 17.8 (12.5-18.0) gm/dl Hct 52.3 H (42-50) % MCV 83.0 (78-100) fl MCH 28.2 (26-32) pg MCHC 34.0 (32-36) g/dl RDW 14.2 H (11.5-14.0) % Plt Count 299 (150-450) K/mm3 MPV 9.8 H (6-9.5) fl Gran % 65.5 (36.0-66.0) % Eos # (Auto) 0.13 (0-0.5) Absolute Lymphs (auto) 3.02 (1.0-4.6) Absolute Monos (auto) 0.91 (0.0-1.3) Lymphocytes % 25.5 (24.0-44.0) % Monocytes % 7.7 (0.0-12.0) % Eosinophils % 1.1 (0.00-5.0) % Basophils % 0.2 (0.0-0.4) % Absolute Granulocytes 7.75 H (1.4-6.9) Basophils # 0.02 (0-0.4) Sodium 145 (137-145) mmol/L Potassium 4.0 (3.5-5.1) mmol/L Chloride 103 (98-107) mmol/L Carbon Dioxide 28 (22-30) mmol/L Anion Gap 18.2 H (5-15) MEQ/L BUN 10 (9-20) mg/dL Creatinine 0.99 (0.66-1.25) mg/dL Estimated GFR > 60.0 ML/MIN Glucose 107 H (74-106) mg/dL Lactic Acid (0.4-2.0) Calcium 9.7 (8.4-10.2) mg/dL Total Bilirubin 0.30 (0.2-1.3) mg/dL AST 40 (17-59) U/L ALT 51 H (0-50) U/L Alkaline Phosphatase 112 (38-126) U/L Serum Total Protein 6.9 (6.3-8.2) g/dL Albumin 4.1 (3.5-5.0) g/dL Amylase 77 (30-110) U/L Lipase 134 (23-300) U/L Ur Collection Type CLEAN CATCH Urine Color YELLOW (YELLOW) Urine Appearance SLIGHTLY CLOUDY (CLEAR) Urine pH 7.0 (5-6) Ur Specific [place] 1.020 (1.005-1.025) Urine Protein 30 (Negative) Urine Ketones SMALL (NEGATIVE) Urine Blood 50 (0-5) Romario/ul Urine Nitrite NEGATIVE (NEGATIVE) Urine Bilirubin NEGATIVE (NEGATIVE) Urine Urobilinogen 1 (0-1) mg/dL Ur Leukocyte Esterase NEGATIVE (NEGATIVE) Urine Microscopic RBC 5-10 (0-2) /HPF Urine Microscopic WBC 0-2 (0-5) /HPF Ur Epithelial Cells RARE (FEW) /HPF Amorphous Crystals MODERATE (NEGATIVE) /HPF Urine Bacteria FEW (NEGATIVE) /HPF Hyaline Casts 0-2 (0-2) /LPF Urine Culture Reflexed YES (NO) Urine Glucose NEGATIVE (NEGATIVE) mg/dL Specimen Received 11/02/17 0310 11/02/17 Range/Units 02:10 WBC (4.0-10.5) K/mm3 RBC (4.1-5.6) M/mm3 Hgb (12.5-18.0) gm/dl Hct (42-50) % MCV (78-100) fl MCH (26-32) pg MCHC (32-36) g/dl RDW (11.5-14.0) % Plt Count (150-450) K/mm3 MPV (6-9.5) fl Gran % (36.0-66.0) % Eos # (Auto) (0-0.5) Absolute Lymphs (auto) (1.0-4.6) Absolute Monos (auto) (0.0-1.3) Lymphocytes % (24.0-44.0) % Monocytes % (0.0-12.0) % Eosinophils % (0.00-5.0) % Basophils % (0.0-0.4) % Absolute Granulocytes (1.4-6.9) Basophils # (0-0.4) Sodium (137-145) mmol/L Potassium (3.5-5.1) mmol/L Chloride (98-107) mmol/L Carbon Dioxide (22-30) mmol/L Anion Gap (5-15) MEQ/L BUN (9-20) mg/dL Creatinine (0.66-1.25) mg/dL Estimated GFR ML/MIN Glucose (74-106) mg/dL Lactic Acid 4.0 H (0.4-2.0) Calcium (8.4-10.2) mg/dL Total Bilirubin (0.2-1.3) mg/dL AST (17-59) U/L ALT (0-50) U/L Alkaline Phosphatase (38-126) U/L Serum Total Protein (6.3-8.2) g/dL Albumin (3.5-5.0) g/dL Amylase (30-110) U/L Lipase (23-300) U/L Ur Collection Type Urine Color (YELLOW) Urine Appearance (CLEAR) Urine pH (5-6) Ur Specific [place] (1.005-1.025) Urine Protein (Negative) Urine Ketones (NEGATIVE) Urine Blood (0-5) Romario/ul Urine Nitrite (NEGATIVE) Urine Bilirubin (NEGATIVE) Urine Urobilinogen (0-1) mg/dL Ur Leukocyte Esterase (NEGATIVE) Urine Microscopic RBC (0-2) /HPF Urine Microscopic WBC (0-5) /HPF Ur Epithelial Cells (FEW) /HPF Amorphous Crystals (NEGATIVE) /HPF Urine Bacteria (NEGATIVE) /HPF Hyaline Casts (0-2) /LPF Urine Culture Reflexed (NO) Urine Glucose (NEGATIVE) mg/dL Specimen Received - Progress Progress: improved, re-examined Counseled pt/family regarding: lab results, diagnosis, need for follow-up, rad results - Departure Time of Disposition: 05:02 Departure Disposition: Home Clinical Impression: Renal lithiasis, History of nephrolithiasis, Left flank pain Condition: Good Critical Care Time: No Referrals: RASHI ALVARADO JR [Primary Care Provider] - Instructions: Kidney Stones (DC) Additional Instructions: followup with your Drs, and return meantime if stone not passing or further concerns followup your blood pressure with your Dr also Prescriptions: Hydrocodone/Acetaminophen [[place] 5-325 Tablet] 1 each PO Q4-6HPRN PRN #14 tablet MDD 4 tabs PRN Reason: Pain Tamsulosin HCl 0.4 mg [Flomax 0.4 MG] 0.4 mg PO DAILY #10 cap
[2017-11-02] MEDS ORDERED: Sodium Chloride 0.9% 1000 ML 1,000 ML ONE ×2 (02:18→03:34)
[2017-11-02] MEDS ORDERED: Phenergan 25 MG INJ ONE (02:18)
[2017-11-02 02:24] LABS: BASOPHIL % 0.2 % (0.0-0.4); Basophil (Absolute #) 0.02 (0-0.4); Eosinophil % 1.1 % (0.00-5.0); Eosinophil (Absolute #) 0.13 (0-0.5); Granulocyte Absolute (ANC) 7.75 (1.4-6.9); Granulocytes % 65.5 % (36.0-66.0); Hematocrit 52.3 % (42-50); Hemoglobin 17.8 gm/dl (12.5-18.0); Lymphocyte (Absolute #) 3.02 (1.0-4.6); Lymphocytes % 25.5 % (24.0-44.0); Mean Platelet Volume 9.8 fl (6-9.5); Monocyte (Absolute #) 0.91 (0.0-1.3); Monocytes % 7.7 % (0.0-12.0); Platelet Count 299 K/mm3 (150-450); Red Cell Distribution Width 14.2 % (11.5-14.0); White Blood Count 11.8 K/mm3 (4.0-10.5)
[2017-11-02 02:27] LABS: Mean Corpuscular Hemoglobin 28.2 pg (26-32)
[2017-11-02] MEDS ORDERED: MORPHINE SULFATE 4 MG INJ IV ONE (02:35)
[2017-11-02] MEDS ORDERED: BENADRYL 50 MG/ML IV ONE ×2 (02:35→03:34)
[2017-11-02] MEDS ORDERED: MORPHINE SULFATE 4 MG INJ ONE ×2 (02:43→03:44)
[2017-11-02] MEDS ORDERED: BENADRYL 50 MG/ML ONE ×2 (02:43→03:43)
[2017-11-02 02:46] LABS: ALBUMIN 4.1 g/dL (3.5-5.0); ALKALINE PHOSPHATASE 112 U/L (38-126); AMYLASE 77 U/L (30-110); ANION GAP 18.2 MEQ/L (5-15); BLOOD UREA NITROGEN 10 mg/dL (9-20); CHLORIDE 103 mmol/L (98-107); Calcium 9.7 mg/dL (8.4-10.2); Carbon Dioxide 28 mmol/L (22-30); Creatinine 1 0.99 mg/dL (0.66-1.25); Glucose 107 mg/dL (74-106); LIPASE 134 U/L (23-300); SGOT/AST 40 U/L (17-59); SGPT/ALT 51 U/L (0-50); SODIUM 145 mmol/L (137-145); Total Protein 6.9 g/dL (6.3-8.2)
[2017-11-02] MEDS ORDERED: Flomax 0.4 MG PO ONE (03:27)
[2017-11-02] MEDS ORDERED: Flomax 0.4 MG ONE (03:34)
[2017-11-02] MEDS ORDERED: MORPHINE SULFATE 10 MG/ML IV ONE (03:34)
[2017-11-02 04:33] LABS: Appearance SLIGHTLY CLOUDY (CLEAR); Bilirubin NEGATIVE (NEGATIVE); Blood 50 Ery/ul (0-5); Glucose NEGATIVE (NEGATIVE); Ketones SMALL (NEGATIVE); Leukocyte Esterase NEGATIVE (NEGATIVE); Nitrite NEGATIVE (NEGATIVE); Protein,Urine Dip 30 (Negative); Urobilinogen 1 mg/dL (0-1)
[2017-11-02 04:34] LABS: Amourphous Crystal MODERATE /HPF (NEGATIVE); Bacteria FEW /HPF (NEGATIVE); Epithelial Cells RARE /HPF (FEW); Hyaline Casts 0-2 /LPF (0-2); WBC 0-2 /HPF (0-5)
[2017-11-02] MEDS ORDERED: Hydromorphone 1 mg/ml Ampule IV ONE (04:57)
[2017-11-02] MEDS ORDERED: DILAUDID 2 MG INJECTION ONE (05:06)
[2017-11-02 06:08] VITALS: BP 129/82; PULSE 82; O2SAT 99
--- NOTE | 2017-11-02 08:01 | XRAY ---
Indication: Left flank pain, nausea, and vomiting. History stones and Kallmans disease. Multiple contiguous axial images obtained through the abdomen and pelvis without contrast as ordered. Comparison: August 02, 2017. Lung bases are essentially clear. Heart is not enlarged. Noncontrasted stomach and bowel loops appear nonobstructed. Normal appendix. No free fluid/air. Stable nonobstructing bilateral renal microcalculi, right renal cyst, and right adrenal adenoma. Spleen remains enlarged today measuring 14.6 cm in greatest axial dimension. Remaining liver, gallbladder, pancreas, spleen, adrenal glands, kidneys, ureters, bladder, and aorta appear unremarkable for noncontrasted exam. Osseous structures intact. No ventral/inguinal hernias. Impression: 1. Again nonobstructing bilateral renal microcalculi, right adrenal adenoma, right renal cyst, and splenomegaly. 2. No new or acute intra-abdominal/pelvic abnormalities on this noncontrast exam. Comment: Preliminary interpretation was made by [facility]. No discrepancy. CTDI 23.54
== END 2017-11-02 06:06 | disposition home or self-care (01) ==
LOC: ED 01:52
DX: N20.0 Calculus of kidney (principal); R10.32 Left lower quadrant pain; Z87.442 Personal history of urinary calculi; Z79.899 Other long term (current) drug therapy
CPT/HCPCS: 36000; 36415; 74176; 80053; 81000; 82150; 83605; 83690; 85025; 87086; 96360; 96361; 96372; 96374; 96375; 96376; 99285; J1170; J1200; J2270; J2550; A9270-GY

== ENCOUNTER 2017-12-13 05:46 | Emergency (ER) | payer BC, OTHER ==
[2017-12-13] MEDS ORDERED: Sodium Chloride 0.9% 1000 ML 1,000 ML IV STA ×2 (06:10→07:56)
[2017-12-13] MEDS ORDERED: Norflex 60 MG/2 ML IV ONE (06:10)
--- NOTE | 2017-12-13 06:37 | ERPHSYRPT ---
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 Triage Nursing Assessment: pt a&o x3; skin p, w, & d; ambulated to room per self ; no other distress or discomfort noted at this time. Timing/Duration: yesterday Activities at Onset: none Quality: aching Abdominal Pain Onset Location: other (left side CVA) Pain Radiation: no radiation Severity of Pain-Max: mild Severity of Pain-Current: mild Modifying Factors: Improves With: nothing Associated Symptoms: denies symptoms Hx Tetanus, Diphtheria Vaccination/Date Given: Yes Hx Influenza Vaccination/Date Given: No Hx Pneumococcal Vaccination/Date Given: No Immunizations Up to Date: No <CHAVEZ HOLLIS - Last Filed: 12/13/17 06:59> <FIFI CHARLES - Last Filed: 12/13/17 10:09> - History of Present Illness Time Seen by Provider: 12/13/17 09:54 Physician History: 32-year-old male came to the emergency room with complaining of left sided CVA pain. Patient has a history of recurrent kidney stone in the past. This time pain started yesterday around 6 PM mainly located on left side costovertebral angle area. Pain is nonradiating. Patient denies any urinary trouble. (CHAVEZ HOLLIS) The patient is a 32-year-old male complaining of a sudden onset of left flank pain last night. He now states that he has radiation of the pain down into his left testicle. His local doctor is in [place] and his kidney doctor is in [place]. He has a known history of kidney stones. I reviewed his radiology history and he has experienced [address] scans in this hospital since October 2016 (1 year). Today the patient denies nausea or vomiting. (FIFI CHARLES) Allergies/Adverse Reactions: shrimp Allergy (Mild, Verified 12/13/17 06:16) ketorolac tromethamine [From Toradol] Allergy (Verified 12/13/17 06:16) Itching Home Medications: Escitalopram Oxalate [Lexapro] 1 tab PO DAILY 02/25/16 [History] Esomeprazole Magnesium [Nexium] 40 mg PO DAILY 02/25/16 [History] Lorazepam 0.5 mg [Ativan 0.5 MG] 1 mg PO TID PRN 02/25/16 [History] Temazepam [Restoril] 30 mg PO DAILY PRN 02/25/16 [History] Testosterone Cypionate 150 mg IM WEEKLY 10/01/17 [History] - Review of Systems Constitutional: No Fever, No Chills Eyes: No Symptoms Ears, Nose, & Throat: No Symptoms Respiratory: No Cough, No Dyspnea Cardiac: No Chest Pain, No Edema, No Syncope Abdominal/Gastrointestinal: No Abdominal Pain, No Nausea, No Vomiting, No Diarrhea Genitourinary Symptoms: Flank Pain (left side), No Dysuria Musculoskeletal: No Back Pain, No Neck Pain Skin: No Rash Neurological: No Dizziness, No Focal Weakness, No Sensory Changes Psychological: No Symptoms Endocrine: No Symptoms All Other Systems: Reviewed and Negative <TELMA,CHAVEZ - Last Filed: 12/13/17 06:59> - Past Medical History Pertinent Past Medical History: Yes Neurological History: Migraines ENT History: No Pertinent History Cardiac History: No Pertinent History Respiratory History: No Pertinent History Endocrine Medical History: No Pertinent History Musculoskeletal History: No Pertinent History GI Medical History: GERD History: Renal Disease Psycho-Social History: Anxiety, Depression Male Reproductive Disorders: No Pertinent History Other Medical History: Kallmann's Disease - frequent kidney stones. freq abd pain, n&v - Past Surgical History Past Surgical History: Yes Neuro Surgical History: No Pertinent History Cardiac: No Pertinent History Respiratory: No Pertinent History Gastrointestinal: No Pertinent History Genitourinary: Kidney Surgery Musculoskeletal: No Pertinent History Male Surgical History: No Pertinent History Other Surgical History: nephrolithiasis removal - egd - colonoscopy wisdom teeth removed -lipoma removed from back - Social History Smoking Status: Never smoker Exposure to second hand smoke: No Drug Use: none Patient Lives Alone: No <TELMA,CHAVEZ - Last Filed: 12/13/17 06:59> - Physical Exam General Appearance: no apparent distress, alert Eye Exam: PERRL/EOMI, eyes nml inspection Ears, Nose, Throat Exam: normal ENT inspection, pharynx normal, moist mucous membranes Neck Exam: normal inspection, non-tender, supple, full range of motion Respiratory Exam: normal breath sounds, lungs clear, No respiratory distress Cardiovascular Exam: regular rate/rhythm, normal heart sounds Gastrointestinal/Abdomen Exam: soft, No tenderness, No mass Back Exam: normal inspection, normal range of motion, No CVA tenderness, No vertebral tenderness Extremity Exam: normal inspection, normal range of motion, pelvis stable Neurologic Exam: alert, oriented x 3, cooperative, normal mood/affect, nml cerebellar function, sensation nml, No motor deficits Skin Exam: normal color, warm, dry SpO2: 97 Oxygen Delivery: Room Air <TELMACHAVEZ - Last Filed: 12/13/17 06:59> - Nursing Vital Signs Nursing Vital Signs: Initial Vital Signs Temperature 99.2 F 12/13/17 06:08 Pulse Rate 107 H 12/13/17 06:08 Respiratory Rate 18 12/13/17 06:08 Blood Pressure 161/115 12/13/17 06:08 O2 Sat by Pulse Oximetry 97 12/13/17 06:08 Pain Scale Pain Intensity 4 - Radiology Exams Abdomen X-ray Interpretation: Reviewed by me <TELMACHAVEZ - Last Filed: 12/13/17 06:59> - Radiology Exams Abdomen X-ray Interpretation: Interpreted by me, Reviewed by me, Discussed w/ radiologist (Discussed with Dr Matthews.), Other (5 mm stone in distal left ureter. Also comfirmed by Dr Matthews) <FIFI CHARLES - Last Filed: 12/13/17 10:09> Ordered Tests: Active Orders 24 hr Category Date Time Status KUB Stat Exams 12/13/17 06:12 Completed CBC W DIFF Stat Lab 12/13/17 06:33 Completed CMP Stat Lab 12/13/17 06:33 Completed CULTURE,URINE Stat Lab 12/13/17 06:25 Received UA W/ MICROSCOPIC Stat Lab 12/13/17 06:25 Completed Medication Summary Generic Name Dose Route Start Last Admin Trade Name Freq PRN Reason Stop Dose Admin Hydromorphone HCl 1 mg 12/13/17 09:53 Hydromorphone 1 Mg/Ml Ampule IV 12/13/17 09:54 STAT ONE Discontinued Medications Generic Name Dose Route Start Last Admin Trade Name Freq PRN Reason Stop Dose Admin Hydromorphone HCl 1 mg 12/13/17 07:56 12/13/17 08:15 Hydromorphone 1 Mg/Ml Ampule IV 12/13/17 07:57 1 mg STAT ONE Administration Hydromorphone HCl Confirm 12/13/17 08:03 Dilaudid 2 Mg Injection Administered 12/13/17 08:04 Dose 2 mg .ROUTE .STK-MED ONE Sodium Chloride 1,000 mls @ 999 mls/hr 12/13/17 06:10 12/13/17 09:19 Sodium Chloride 0.9% 1000 Ml IV 12/13/17 07:10 Infused .Q1H1M STA Infusion Sodium Chloride Confirm 12/13/17 06:38 Sodium Chloride 0.9% 1000 Ml Administered 12/13/17 06:39 Dose 1,000 mls @ ud .ROUTE .STK-MED ONE Potassium Chloride 20 meq in 100 mls @ 50 mls/hr 12/13/17 07:54 12/13/17 08: 19 Potassium Chloride 20 Meq In Water 100ml IV 12/13/17 09:53 50 mls/hr STAT ONE Administration Sodium Chloride 1,000 mls @ 999 mls/hr 12/13/17 07:56 12/13/17 09:19 Sodium Chloride 0.9% 1000 Ml IV 12/13/17 08:56 Infused .Q1H1M STA Infusion Ceftriaxone Sodium/Dextrose 1 g in 50 mls @ 100 mls/hr 12/13/17 07:57 09:20 Rocephin 1 Gm-D5w 50 Ml Bag IV 12/13/17 08:26 Infused STAT STA Infusion Sodium Chloride Confirm 12/13/17 08:04 Sodium Chloride 0.9% 1000 Ml Administered 12/13/17 08:05 Dose 1,000 mls @ ud .ROUTE .STK-MED ONE Ceftriaxone Sodium/Dextrose Confirm 12/13/17 08:04 Rocephin 1 Gm-D5w 50 Ml Bag Administered 12/13/17 08:05 Dose 1 g in 50 mls @ ud IV .STK-MED ONE Potassium Chloride Confirm 12/13/17 08:04 Potassium Chloride 20 Meq In Water 100ml Administered 12/13/17 08:05 Dose 100 mls @ ud IV .STK-MED ONE Ondansetron HCl 4 mg 07/21/18 07:56 12/13/17 08:15 Zofran 4 Mg/2 Ml Vial IV 12/13/17 07:57 4 mg STAT ONE Administration Ondansetron HCl Confirm 12/13/17 08:03 Zofran 4 Mg/2 Ml Vial Administered 12/13/17 08:04 Dose 4 mg .ROUTE .STK-MED ONE Orphenadrine Citrate 60 mg 12/13/17 06:10 12/13/17 06:39 Norflex 60 Mg/2 Ml IV 12/13/17 06:11 60 mg STAT ONE Administration Orphenadrine Citrate Confirm 12/13/17 06:38 Norflex 60 Mg/2 Ml Administered 12/13/17 06:39 Dose 60 mg .ROUTE .STK-MED ONE Potassium Chloride 40 meq 12/13/17 07:55 12/13/17 08:07 Klor Con 10 Meq PO 12/13/17 07:56 40 meq STAT ONE Administration Potassium Chloride Confirm 12/13/17 08:03 Klor Con 10 Meq Administered 12/13/17 08:04 Dose 40 meq PO .STK-MED ONE Tamsulosin HCl 0.4 mg 12/13/17 07:55 12/13/17 08:07 Flomax 0.4 Mg PO 12/13/17 07:56 0.4 mg DAILY STA Administration Tamsulosin HCl Confirm 12/13/17 08:03 Flomax 0.4 Mg Administered 12/13/17 08:04 Dose 0.4 mg .ROUTE .STK-MED ONE Lab/Rad Data: Laboratory Result Diagrams 12/13/17 06:33 12/13/17 06:33 Laboratory Results 12/13/17 12/13/17 12/13/17 Range/Units 06:33 06:33 06:25 WBC 10.7 H (4.0-10.5) K/mm3 RBC 5.78 H (4.1-5.6) M/mm3 Hgb 16.3 (12.5-18.0) gm/dl Hct 47.7 (42-50) % MCV 82.5 (78-100) fl MCH 28.2 (26-32) pg MCHC 34.2 (32-36) g/dl RDW 13.7 (11.5-14.0) % Plt Count 264 (150-450) K/mm3 MPV 9.5 (6-9.5) fl Gran % 83.9 H (36.0-66.0) % Eos # (Auto) 0.04 (0-0.5) Absolute Lymphs (auto) 1.10 (1.0-4.6) Absolute Monos (auto) 0.57 (0.0-1.3) Lymphocytes % 10.3 L (24.0-44.0) % Monocytes % 5.3 (0.0-12.0) % Eosinophils % 0.4 (0.00-5.0) % Basophils % 0.1 (0.0-0.4) % Absolute Granulocytes 9.00 H (1.4-6.9) Basophils # 0.01 (0-0.4) Sodium 143 (137-145) mmol/L Potassium 2.9 L* (3.5-5.1) mmol/L Chloride 103 (98-107) mmol/L Carbon Dioxide 28 (22-30) mmol/L Anion Gap 14.4 (5-15) MEQ/L BUN 8 L (9-20) mg/dL Creatinine 0.89 (0.66-1.25) mg/dL Estimated GFR > 60.0 ML/MIN Glucose 159 H (74-106) mg/dL Calcium 9.6 (8.4-10.2) mg/dL Total Bilirubin 0.40 (0.2-1.3) mg/dL AST 39 (17-59) U/L ALT 52 H (0-50) U/L Alkaline Phosphatase 64 (38-126) U/L Serum Total Protein 7.1 (6.3-8.2) g/dL Albumin 4.3 (3.5-5.0) g/dL Ur Collection Type CLEAN CATCH Urine Color ORANGE (YELLOW) Urine Appearance CLOUDY (CLEAR) Urine pH 5.0 (5-6) Ur Specific [place] 1.030 (1.005-1.025) Urine Protein 30 (Negative) Urine Ketones NEGATIVE (NEGATIVE) Urine Blood 250 (0-5) Romario/ul Urine Nitrite NEGATIVE (NEGATIVE) Urine Bilirubin NEGATIVE (NEGATIVE) Urine Urobilinogen NORMAL (0-1) mg/dL Ur Leukocyte Esterase 1+ (NEGATIVE) Urine Microscopic RBC >100 (0-2) /HPF Urine Microscopic WBC 15-25 (0-5) /HPF Ur Epithelial Cells FEW (FEW) /HPF Urine Bacteria MODERATE (NEGATIVE) /HPF Urine Culture Reflexed YES (NO) Urine Glucose 50 (NEGATIVE) mg/dL Specimen Received 12-13-17 0700 <CHAVEZ HOLLIS - Last Filed: 12/13/17 06:59> <FIFI CHARLES - Last Filed: 12/13/17 10:09> - Progress Progress Note: 12/13/17 07:26 Pt care discussed and care accepted from Dr Hollis at 07:00. 12/13/17 07:52 The plain film of the abdomen today shows a 5 x 6 stone in the lower left abdomen. Compared to the abdomen plain film dated August 02, 2017 this radio opaque object was in the left kidney. It is no longer in the left kidney but has begun to descend. I discussed with the patient the fact that he has experienced [address] scans over the past 1 year. I also discussed with him that the kidney stone that was in his left kidney in July is now begun to descend. We have opted not to repeat a CT scan today. He will follow up with either his urologist or family doctor on Friday for further evaluation to see if the stone has continued to move. (FIFI CHARLES) <CHAVEZ HOLLIS - Last Filed: 12/13/17 06:59> - Departure Time of Disposition: 10:01 Departure Disposition: Home Critical Care Time: No <FIFI CHARLES - Last Filed: 12/13/17 10:09> - Departure Clinical Impression: Left ureteral calculus, UTI (urinary tract infection), Hypokalemia Condition: Stable Referrals: RASHI ALVARADO JR [Primary Care Provider] - Additional Instructions: You have a kidney stone that has come from your left kidney and is half way down your left ureter today. I did not repeat a CT scan of her abdomen and pelvis because you have had 10 CT scans at this hospital in the past year. You also have low serum potassium and a UTI. You were given fluids, potassium, Dilaudid 2 mg, Zofran 4 mg, and Rocephin 1 g by IV. You were also given potassium orally in the ER as well as Flomax 0.4 mg. Continue with Keflex 500 mg 4 times a day for 7 days. Take naproxen 500 mg 2 times a day as needed. Take Zachary one to 2 tablets every 4-6 hours as needed. Follow-up with your primary care doctor or your urologist on Friday. Stay well hydrated. Prescriptions: Cephalexin Mh 500 mg [Keflex 500 mg] 1 cap PO QID #28 capsule Hydrocodone/APAP 5/325 [Zachary 5/325 mg] 1 each PO Q4-6HPRN PRN #10 tablet MDD 6 PRN Reason: Pain Naproxen 500 mg PO BID PRN #30 tablet.
[2017-12-13] MEDS ORDERED: Norflex 60 MG/2 ML ONE (06:38)
[2017-12-13] MEDS ORDERED: Sodium Chloride 0.9% 1000 ML 1,000 ML ONE ×2 (06:38→08:04)
[2017-12-13 06:46] LABS: BASOPHIL % 0.1 % (0.0-0.4); Basophil (Absolute #) 0.01 (0-0.4); Eosinophil % 0.4 % (0.00-5.0); Eosinophil (Absolute #) 0.04 (0-0.5); Granulocytes % 83.9 % (36.0-66.0); Hematocrit 47.7 % (42-50); Hemoglobin 16.3 gm/dl (12.5-18.0); Lymphocytes % 10.3 % (24.0-44.0); Mean Cell Volume 82.5 fl (78-100); Mean Corpuscular Hemoglobin 28.2 pg (26-32); Mean Corpuscular Hgb Concent. 34.2 g/dl (32-36); Mean Platelet Volume 9.5 fl (6-9.5); Monocyte (Absolute #) 0.57 (0.0-1.3); Monocytes % 5.3 % (0.0-12.0); Platelet Count 264 K/mm3 (150-450); Red Blood Count 5.78 M/mm3 (4.1-5.6); Red Cell Distribution Width 13.7 % (11.5-14.0); White Blood Count 10.7 K/mm3 (4.0-10.5)
[2017-12-13 07:08] LABS: ALBUMIN 4.3 g/dL (3.5-5.0); ALKALINE PHOSPHATASE 64 U/L (38-126); ANION GAP 14.4 MEQ/L (5-15); BLOOD UREA NITROGEN 8 mg/dL (9-20); CHLORIDE 103 mmol/L (98-107); Calcium 9.6 mg/dL (8.4-10.2); Carbon Dioxide 28 mmol/L (22-30); Creatinine 1 0.89 mg/dL (0.66-1.25); Glucose 159 mg/dL (74-106); SGOT/AST 39 U/L (17-59); SGPT/ALT 52 U/L (0-50); SODIUM 143 mmol/L (137-145); Total Protein 7.1 g/dL (6.3-8.2)
[2017-12-13 07:13] VITALS: O2SAT 98
[2017-12-13 07:15] LABS: Potassium 2.9 mmol/L (3.5-5.1)
[2017-12-13 07:20] LABS: Appearance CLOUDY (CLEAR); Bilirubin NEGATIVE (NEGATIVE); Blood 250 Ery/ul (0-5); Glucose 50 mg/dL (NEGATIVE); Ketones NEGATIVE (NEGATIVE); Leukocyte Esterase 1+ (NEGATIVE); Nitrite NEGATIVE (NEGATIVE); Protein,Urine Dip 30 (Negative); Urobilinogen NORMAL mg/dL (0-1)
[2017-12-13 07:24] LABS: Bacteria MODERATE /HPF (NEGATIVE); Epithelial Cells FEW /HPF (FEW); RBC >100 /HPF (0-2); WBC 15-25 /HPF (0-5)
[2017-12-13] MEDS ORDERED: POTASSIUM CHLORIDE 20 mEq IN WATER 100ML 20 MEQ/100 ML BAG IV ONE (07:54)
[2017-12-13] MEDS ORDERED: Flomax 0.4 MG PO STA (07:55)
[2017-12-13] MEDS ORDERED: Klor Con 10 MEQ PO ONE ×2 (07:55→08:03)
[2017-12-13] MEDS ORDERED: Hydromorphone 1 mg/ml Ampule IV ONE ×2 (07:56→09:53)
[2017-12-13] MEDS ORDERED: Zofran 4 MG/2 ML VIAL IV ONE (07:56)
[2017-12-13] MEDS ORDERED: ROCEPHIN 1 Gm-D5w 50 ml Bag** 1 G/50 ML IVPB IV STA (07:57)
[2017-12-13] MEDS ORDERED: Zofran 4 MG/2 ML VIAL ONE (08:03)
[2017-12-13] MEDS ORDERED: Flomax 0.4 MG ONE (08:03)
[2017-12-13] MEDS ORDERED: DILAUDID 2 MG INJECTION ONE ×2 (08:03→09:55)
[2017-12-13] MEDS ORDERED: POTASSIUM CHLORIDE 20 mEq IN WATER 100ML 100 ML IV ONE (08:04)
[2017-12-13] MEDS ORDERED: ROCEPHIN 1 Gm-D5w 50 ml Bag** 1 G/50 ML IVPB IV ONE (08:04)
--- NOTE | 2017-12-13 09:14 | XRAY ---
Indication: Left flank pain. Comparison: August 02, 2017. KUB demonstrates new 6-7 mm left mid to proximal ureteral calculus, approximately L3-L4 interspace level. Again there are bilateral renal microcalculi. Bowel gas pattern nonobstructed. Remaining solid organs and osseous structures unremarkable. Comment: Case was discussed with Dr. Blackwell in the ER at 0910 hrs. on December 13, 2017.
[2017-12-13 10:11] VITALS: BP 158/102; PULSE 90
== END 2017-12-13 10:13 | disposition home or self-care (01) ==
LOC: ED 05:46
DX: N20.1 Calculus of ureter (principal); N39.0 Urinary tract infection, site not specified; E87.6 Hypokalemia; Z87.442 Personal history of urinary calculi; Z79.899 Other long term (current) drug therapy
CPT/HCPCS: 36000; 36415; 74018; 80053; 81000; 85025; 87086; 96360; 96361; 96365; 96366; 96374; 96375; 96376; 99285; J0696; J1170; J2360; J2405; J3480; A9270-GY

== ENCOUNTER 2018-02-18 01:28 | Emergency (ER) | payer SELFPAY ==
[2018-02-18] MEDS ORDERED: BENADRYL 50 MG/ML IV ONE (02:10)
[2018-02-18] MEDS ORDERED: Sodium Chloride 0.9% 1000 ML 1,000 ML IV STA (02:10)
[2018-02-18] MEDS ORDERED: Hydromorphone 1 mg/ml Ampule IV ONE (02:10)
--- NOTE | 2018-02-18 02:10 | ERPHSYRPT ---
- History of Present Illness Time Seen by Provider: 02/18/18 01:45 Source: patient Exam Limitations: clinical condition Patient Subjective Stated Complaint: Pt arrives to ER with c/o left flank pain began early Friday morning. Was unable to get in to see PCP today. Has dysuria , hematuria, difficulty urinating, N/V. Denies fever or any other sx. Triage Nursing Assessment: see above Physician History: PATIENT WITH A HISTORY OF KIDNEY STONES, KALLMANNS SYNDROME COMPLAINS OF LEFT FLANK PAIN X 2 DAYS ASSOCIATED WITH NAUSEA. DENIES URINARY SYMPTOMS, FEVER, CHILLS OR HEMATURIA Timing/Duration: yesterday Activites at Onset: none Quality: sharpness, throbbing Onset Location: left flank Severity of Pain-Max: severe Severity of Pain-Current: severe Associated Symptoms: other (LEFT FLANK PAIN) Prior abdominal problems: similar symptoms Sexual intercourse history: non-contributory Allergies/Adverse Reactions: shrimp Allergy (Mild, Verified 02/18/18 01:42) ketorolac tromethamine [From Toradol] Allergy (Verified 02/18/18 01:42) Itching Home Medications: Escitalopram Oxalate [Lexapro] 1 tab PO DAILY 02/25/16 [History] Esomeprazole Magnesium [Nexium] 40 mg PO DAILY 02/25/16 [History] Lorazepam 0.5 mg [Ativan 0.5 MG] 1 mg PO TID PRN 02/25/16 [History] Testosterone Cypionate 150 mg IM WEEKLY 10/01/17 [History] Eszopiclone [Lunesta] 2 mg PO 02/18/18 [History] Hx Tetanus, Diphtheria Vaccination/Date Given: Yes Hx Influenza Vaccination/Date Given: No Hx Pneumococcal Vaccination/Date Given: No - Past Medical History Pertinent Past Medical History: Yes Neurological History: Migraines ENT History: No Pertinent History Cardiac History: No Pertinent History Respiratory History: No Pertinent History Endocrine Medical History: No Pertinent History Musculoskeletal History: No Pertinent History GI Medical History: GERD History: Renal Disease Psycho-Social History: Anxiety, Depression Male Reproductive Disorders: No Pertinent History Other Medical History: Kallmann's Disease - frequent kidney stones. freq abd pain, n&v - Past Surgical History Past Surgical History: Yes Neuro Surgical History: No Pertinent History Cardiac: No Pertinent History Respiratory: No Pertinent History Gastrointestinal: No Pertinent History Genitourinary: Kidney Surgery Musculoskeletal: No Pertinent History Male Surgical History: No Pertinent History Other Surgical History: nephrolithiasis removal - egd - colonoscopy wisdom teeth removed -lipoma removed from back - Social History Smoking Status: Never smoker Exposure to second hand smoke: No Drug Use: none Patient Lives Alone: No - Review of Systems Constitutional: No Fever, No Chills Eyes: No Symptoms Ears, Nose, & Throat: No Symptoms Respiratory: No Symptoms, No Cough, No Dyspnea Cardiac: No Symptoms, No Chest Pain, No Edema, No Syncope Abdominal/Gastrointestinal: No Abdominal Pain, No Nausea, No Vomiting, No Diarrhea Genitourinary Symptoms: Flank Pain, No Dysuria Musculoskeletal: No Symptoms, No Back Pain, No Neck Pain Skin: No Symptoms, No Rash Neurological: No Dizziness, No Focal Weakness, No Sensory Changes Psychological: No Symptoms Endocrine: No Symptoms All Other Systems: Reviewed and Negative - Nursing Vital Signs Nursing Vital Signs: Initial Vital Signs Temperature 99.2 F 02/18/18 01:37 Pulse Rate 99 H 02/18/18 01:37 Respiratory Rate 18 02/18/18 01:37 Blood Pressure 141/109 02/18/18 01:37 O2 Sat by Pulse Oximetry 98 02/18/18 01:37 Pain Scale Pain Intensity 9 - Physical Exam SpO2: 98 Oxygen Delivery: Room Air - CT Exams Abdomen/Pelvis CT Interpretation: Tele-radiologist Report (6 MM CALCIFIED STONE LOCATED IN THE DISTAL LEFT URETER, MODERATE SIZE LEFT HYDRONEPHROSIS WITH PERINEPHRIC STRANDING.) Ordered Tests: Active Orders 24 hr Category Date Time Status IV Insertion STAT Care 02/18/18 02:10 Active ABDOMEN AND PELVIS W/0 CONTRAS [CT] Stat Exams 02/18/18 02:10 Ordered BMP Stat Lab 02/18/18 02:21 Completed CBC W DIFF Stat Lab 02/18/18 02:21 Completed CULTURE,URINE Stat Lab 02/18/18 02:26 Received UA W/ MICROSCOPIC Stat Lab 02/18/18 02:26 Completed Medication Summary Discontinued Medications Generic Name Dose Route Start Last Admin Trade Name Freq PRN Reason Stop Dose Admin Diphenhydramine HCl 50 mg 02/18/18 02:10 02/18/18 02:33 Benadryl 50 Mg/Ml IV 02/18/18 02:11 50 mg STAT ONE Administration Diphenhydramine HCl Confirm 02/18/18 02:23 Benadryl 50 Mg/Ml Administered 02/18/18 02:24 Dose 50 mg .ROUTE .STK-MED ONE Hydromorphone HCl 1 mg 02/18/18 02:10 02/18/18 02:33 Hydromorphone 1 Mg/Ml Ampule IV 02/18/18 02:11 1 mg STAT ONE Administration Hydromorphone HCl Confirm 02/18/18 02:23 Hydromorphone 1 Mg/Ml Ampule Administered 02/18/18 02:24 Dose 1 mg .ROUTE .STK-MED ONE Sodium Chloride 1,000 mls @ 999 mls/hr 02/18/18 02:10 02/18/18 02:33 Sodium Chloride 0.9% 1000 Ml IV 02/18/18 03:10 999 mls/hr .Q1H1M STA Administration Sodium Chloride Confirm 02/18/18 02:23 Sodium Chloride 0.9% 1000 Ml Administered 02/18/18 02:24 Dose 1,000 mls @ ud .ROUTE .STK-MED ONE Lab/Rad Data: Laboratory Result Diagrams 02/18/18 02:21 02/18/18 02:21 Laboratory Results 02/18/18 02/18/18 02/18/18 Range/Units 02:26 02:21 02:21 WBC 8.7 (4.0-10.5) K/mm3 RBC 5.19 (4.1-5.6) M/mm3 Hgb 14.8 (12.5-18.0) gm/dl Hct 42.9 (42-50) % MCV 82.7 (78-100) fl MCH 28.5 (26-32) pg MCHC 34.5 (32-36) g/dl RDW 13.1 (11.5-14.0) % Plt Count 248 (150-450) K/mm3 MPV 9.9 H (6-9.5) fl Gran % 72.0 H (36.0-66.0) % Eos # (Auto) 0.08 (0-0.5) Absolute Lymphs (auto) 1.57 (1.0-4.6) Absolute Monos (auto) 0.76 (0.0-1.3) Lymphocytes % 18.2 L (24.0-44.0) % Monocytes % 8.8 (0.0-12.0) % Eosinophils % 0.9 (0.00-5.0) % Basophils % 0.1 (0.0-0.4) % Absolute Granulocytes 6.23 (1.4-6.9) Basophils # 0.01 (0-0.4) Sodium 140 (137-145) mmol/L Potassium 3.5 (3.5-5.1) mmol/L Chloride 105 (98-107) mmol/L Carbon Dioxide 24 (22-30) mmol/L Anion Gap 14.1 (5-15) MEQ/L BUN 12 (9-20) mg/dL Creatinine 1.37 H (0.66-1.25) mg/dL Estimated GFR > 60.0 ML/MIN Glucose 133 H (74-106) mg/dL Calcium 9.0 (8.4-10.2) mg/dL Ur Collection Type VOID Urine Color YELLOW (YELLOW) Urine Appearance SLIGHTLY CLOUDY (CLEAR) Urine pH 5.0 (5-6) Ur Specific [place] 1.030 (1.005-1.025) Urine Protein TRACE (Negative) Urine Ketones SMALL (NEGATIVE) Urine Blood 250 (0-5) Romario/ul Urine Nitrite NEGATIVE (NEGATIVE) Urine Bilirubin NEGATIVE (NEGATIVE) Urine Urobilinogen NORMAL (0-1) mg/dL Ur Leukocyte Esterase TRACE (NEGATIVE) Urine Microscopic RBC 25-50 (0-2) /HPF Urine Microscopic WBC 0-2 (0-5) /HPF Ur Epithelial Cells MODERATE (FEW) /HPF Urine Bacteria MODERATE (NEGATIVE) /HPF Urine Mucus SLIGHT (NEGATIVE) /HPF Urine Culture Reflexed YES (NO) Urine Glucose NEGATIVE (NEGATIVE) mg/dL - Progress Progress: pain not gone completely Progress Note: 02/18/18 03:40 IV NORMAL SALINE 500ML/HR X 2, DILAUDID 1MG X 2, BENADRYL 50MG IV Discussed with : Other (DISCUSSED WITH DR GEORGE AT 0340 ACCEPTS TRANSFER TO [facility] VIA S ) - Departure Time of Disposition: 04:00 Departure Disposition: Transfer Clinical Impression: LEFT DISTAL RENAL STONE Condition: Stable Critical Care Time: No Referrals: RASHI ALVARADO JR [Primary Care Provider] -
[2018-02-18] MEDS ORDERED: Hydromorphone 1 mg/ml Ampule ONE ×2 (02:23→03:29)
[2018-02-18] MEDS ORDERED: BENADRYL 50 MG/ML ONE (02:23)
[2018-02-18] MEDS ORDERED: Sodium Chloride 0.9% 1000 ML 1,000 ML ONE (02:23)
[2018-02-18 02:24] LABS: BASOPHIL % 0.1 % (0.0-0.4); Basophil (Absolute #) 0.01 (0-0.4); Eosinophil % 0.9 % (0.00-5.0); Eosinophil (Absolute #) 0.08 (0-0.5); Granulocyte Absolute (ANC) 6.23 (1.4-6.9); Hematocrit 42.9 % (42-50); Hemoglobin 14.8 gm/dl (12.5-18.0); Lymphocyte (Absolute #) 1.57 (1.0-4.6); Lymphocytes % 18.2 % (24.0-44.0); Mean Cell Volume 82.7 fl (78-100); Mean Corpuscular Hemoglobin 28.5 pg (26-32); Mean Corpuscular Hgb Concent. 34.5 g/dl (32-36); Mean Platelet Volume 9.9 fl (6-9.5); Monocyte (Absolute #) 0.76 (0.0-1.3); Monocytes % 8.8 % (0.0-12.0); Platelet Count 248 K/mm3 (150-450); Red Blood Count 5.19 M/mm3 (4.1-5.6); Red Cell Distribution Width 13.1 % (11.5-14.0); White Blood Count 8.7 K/mm3 (4.0-10.5)
[2018-02-18 02:29] LABS: ANION GAP 14.1 MEQ/L (5-15); BLOOD UREA NITROGEN 12 mg/dL (9-20); CHLORIDE 105 mmol/L (98-107); Carbon Dioxide 24 mmol/L (22-30); Creatinine 1 1.37 mg/dL (0.66-1.25); Glucose 133 mg/dL (74-106); Potassium 3.5 mmol/L (3.5-5.1); SODIUM 140 mmol/L (137-145)
[2018-02-18 02:37] LABS: Appearance SLIGHTLY CLOUDY (CLEAR); Glucose NEGATIVE (NEGATIVE); Ketones SMALL (NEGATIVE); Leukocyte Esterase TRACE (NEGATIVE); Nitrite NEGATIVE (NEGATIVE); Protein,Urine Dip TRACE (Negative)
[2018-02-18 02:38] LABS: Bacteria MODERATE /HPF (NEGATIVE); Bilirubin NEGATIVE (NEGATIVE); Blood 250 Ery/ul (0-5); Epithelial Cells MODERATE /HPF (FEW); Mucus SLIGHT /HPF (NEGATIVE); RBC 25-50 /HPF (0-2); Urobilinogen NORMAL mg/dL (0-1); WBC 0-2 /HPF (0-5)
[2018-02-18 03:25] VITALS: O2SAT 98
[2018-02-18 03:44] VITALS: BP 142/96; PULSE 95
--- NOTE | 2018-02-18 15:25 | XRAY ---
Exam: CT of the abdomen and pelvis without IV contrast from 02/18/2018. CTDI: 28.13 Comparison: CT of the abdomen and pelvis without IV contrast from 11/02/2017. Indication: 32-year-old male with left flank pain x one day with nausea and hematuria, history of left ureteral stone since November,, history of lithotripsy. Technique: Non-IV contrast axial images were obtained through the abdomen and pelvis. Reconstructed coronal and sagittal images were created and reviewed. Findings: Prior prominent renal stone overlying the lower pole of the left kidney on axial image #36 from 11/02/2017 is no longer seen in the projection of the left kidney. Rather, it is seen within the projection of the distal left ureter on axial images #121 through #123. This distal left ureteral stone measures 6.25 mm in diameter and is noted just above the left ureterovesical junction. Proximal to the distal left ureteral stone, there is hydroureter and moderate left-sided hydronephrosis which is new. The right kidney reveals multiple nonobstructing stones which appear to be calyceal in position. There is no right hydronephrosis. The right ureter appears of normal diameter and reveals no ureterolith. The urinary bladder is partially empty. No urinary bladder stone is seen. Incidentally, I believe there is a 2 cm in diameter cyst within the posterior lateral aspect of the middle third of the right kidney. This measures about +15.0 Hounsfield units. This is unchanged. The lung bases reveal minimal compression atelectatic changes within the right posterior lung sulcus. I believe there is a small bleb that is partially seen at the posterior medial right lung base on image #1. The liver appears grossly unremarkable. No intrahepatic biliary duct distention is seen. The gallbladder is distended and reveals no dense calcifications within it. The spleen measures 15.4 cm in greatest transverse diameter on axial image #29. The spleen measures 14.7 cm in height on coronal image #103. This is mildly enlarged and essentially unchanged from 11/02/2017. No focal splenic mass is seen. The pancreas appears of normal size and attenuation. No inflammatory changes are seen to suggest acute pancreatitis. The adrenal glands are remarkable for a 1 cm nodule at the lateral margin of the right adrenal gland representing no change from 11/02/2017. This measures +8.1 Hounsfield units and likely represents an adrenal adenoma. The abdominal aorta appears of normal diameter revealing no aneurysm. A retroaortic left renal vein is seen representing a normal variant. No abnormal retroperitoneal lymphadenopathy is seen. Minimal vascular calcification is seen within the iliac arteries. There is no free intraperitoneal air or ventral hernia. I see no findings to suggest appendicitis within the right lower quadrant. A mild amount of scattered stool is seen throughout the colon. No bowel distention or bowel wall thickening is seen. A few uncomplicated diverticula are seen within the distal sigmoid colon. There is no free intraperitoneal fluid within the pelvis. No enlarged pelvic lymph nodes are seen. The seminal vesicles and prostate gland appear unremarkable. The skeleton reveals no acute fracture or aggressive bone lesion. Impression: 1. Approximately 2 cm above the left ureterovesical junction I note an obstructing 6.25 mm in diameter stone within the distal left ureter causing acute left-sided obstructive uropathy with new left-sided hydroureter and moderate hydronephrosis. This explains the patient's symptoms. 2. I also note multiple nonobstructing calyceal stones within the right kidney as well as a 2 cm cyst within the middle third of the right kidney posterolaterally. There is no evidence of acute obstructive uropathy on the right. 3. Mild splenomegaly representing no change. 4. Minimal sigmoid colon diverticulosis without evidence of diverticulitis. 5. Normal appendix. 6. Stable probable 1 cm in diameter adrenal adenoma at the lateral margin of the right adrenal gland. 7. No other acute process is seen within the abdomen or pelvis.
== END 2018-02-18 05:09 | disposition short-term general hospital (02) ==
LOC: ED 01:28
DX: N20.0 Calculus of kidney (principal); Z87.442 Personal history of urinary calculi; Z79.899 Other long term (current) drug therapy
CPT/HCPCS: 36000; 36415; 74176; 80048; 81001; 85025; 87086; 96374; 96375; 96376; 99284; J1170; J1200